=== PATIENT | male | born 1940 | race Caucasian/White ===

== ENCOUNTER → 2024-03-17 08:40 | Outpatient (REF) | payer OTHER, SELFPAY | LOC: HWRAD 08:40 | PROVIDERS: ATTENDING PHYSICIAN Internal Medicine Hematology & Oncology; FAMILY PHYSICIAN Family Medicine | DX: C61 Malignant neoplasm of prostate (principal); C79.51 Secondary malignant neoplasm of bone; Z13.29 Encounter for screening for other suspected endocrine disorder | CPT/HCPCS: 76536 ==

== ENCOUNTER 2024-04-17 10:46 | Emergency (ER) | payer OTHER, SELFPAY ==
[2024-04-17] VITALS (19 sets, daily range): BP systolic 110–174; BP diastolic 58–143; BMI 34.3
[2024-04-17] MEDS: NSS 500 IV (12:40)
[2024-04-17 12:51] LABS: % Basophils 0.4 % (0-2); % Eosinophils 0.3 % (0-6); % Immature Granulocytes 0.9 % (0-0.5); % Lymphocytes 10.6 % (20.5-51.1); % Monocytes 4.9 % (1.7-9.3); % Neutrophils 82.9 % (42.2-75.2); Absolute Immature Granulocytes 0.1 10^3/uL (0-0.05); Absolute Lymphocytes 1.1 10^3/uL (1.2-3.4); Absolute Monocytes 0.5 10^3/uL (0.1-0.6); Absolute Neutrophils 8.5 10^3/uL (1.4-6.5); Hematocrit 41.2 % (39.0-52.0); Hemoglobin 14.1 g/dL (13.0-18.0); Mean Corp Hgb Conc. 34.2 g/dL (33.0-37.0); Mean Corpuscular Hgb 28.1 pg (27.0-31.0); Mean Corpuscular Volume 82.1 fL (80.0-94.0); Mean Platelet Volume 10.6 fL (7.4-10.4); Nucleated Red Blood Cells % 0 % (-); Platelet Count 214 10^3/uL (130-400); Red Blood Cell Count 5.02 10^6/uL (4.70-6.10); Red Cell Dist. Width 13.9 % (11.5-14.5); White Blood Cell Count 10.3 10^3/uL (4.8-10.8)
[2024-04-17 13:06] LABS: ALT (SGPT) 19 U/L (0-50); AST (SGOT) 17 U/L (17-59); Albumin 4.2 g/dl (3.5-5.0); Alkaline Phosphatase 51 U/L (38-126); Blood Urea Nitrogen 20 mg/dl (9-20); Calcium 10.3 mg/dl (8.4-10.2); Carbon Dioxide 21 mmol/L (22-30); Chloride 104 mmol/L (98-107); Estimated Creatinine Clearance 74 ml/min; Glucose 141 mg/dl (70-99); Potassium 4.3 mmol/L (3.5-5.1); Sodium 140 mmol/L (135-145); Total Protein 7.2 g/dl (6.3-8.2); eGFR > 60.00
--- NOTE | 2024-04-17 13:29 | ED.GENMED ---
History of Present Illness
General
Chief Complaint: Blood Pressure Problem
Source: patient, records and family
Exam Limitations: none
Time Seen by Provider: 04/17/24 12:23
Nursing documentation reviewed up to this point in time: agreed with
History of Present Illness
History of Present Illness:
Patient is 83-year-old male who awoke today and felt terrible. Patient took his blood pressure seem to be very elevated along with his heart rate. Patient is unsure if the blood pressure was accurate as his machine needed new batteries. However
the patient did not feel well. Patient denies fever or chills, nasal congestion or sore throat. Patient denies any recent illnesses or injuries. Patient did feel some palpitations but denied any chest pain. Patient denies any GI or symptoms.
Patient has noted some swelling of his lower extremities. Patient did not feel short of breath.
Past History
Past History
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
ED Past Surgical History: Orthopedic (Right knee surgery, ), Urological (TURP) and Other (Cataracts)
Social History
Tobacco: Non-smoker
Alcohol: Occasional
Drug: None
Personal:
Living: alone
Employment: Retired
Family History
Family History: Other (Noncontributory)
Review of Systems
Review of Systems
All Other Systems: ROS reviewed and negative except as documented in HPI and ROS
Constitutional: Reports fatigue; Denies fever or chills
EENT: Reports no symptoms
Respiratory: Reports no symptoms
Cardiac: Reports no symptoms
ABD/GI: Reports no symptoms
: Reports no symptoms
Musculoskeletal: Reports no symptoms
Skin: Reports no symptoms
Neurological: Reports no symptoms
Hematologic/Lymphatic: Reports no symptoms
Psychiatric: Reports no symptoms
Phy Exam
Physical Exam
Physical Exam:
Physical Exam
General: mild distress, alert and appropriate, obese, well hydrated
HENT: Normocephalic, supple with no lymphadenopathy, no thyromegaly
Eyes: Clear sclera, conjuctiva without injection
Heart: irregular irregular rhythm and tachycardic rate. No S3, S4. No murmur. No NVD
Lungs: No respiratory distress, no stridor, lung sounds clear and equal bilaterally, chest wall symmetrical and nontender
Abdomen: Soft, nontender, no organomegaly, BS good
Neuro: Alert and oriented x 3, CN II - XII intact, no motor focality
Skin: no rash. Pale
Psychiatric: well kept. interactive and cooperative
Extremities: No cyanosis, tenderness, +1 pitting pretibial and pedal edema bilaterally
Course
Orders/Labs/Results
Orders:
Orders
04/17/24 11:10
Electrocardiogram (*1) Urgent
Reason for Study: Other
Other Reason for Exam: lightheaded
EKG- Treatment ONCE
04/17/24 12:25
0.9% Sodium Chloride 500 ml [Nss] 500 ml IV BOLUS
04/17/24 12:41
Complete Blood Count/With Diff Urgent
Comprehensive Metabolic Panel Urgent
04/17/24 13:31
Diltiazem HCl [Cardizem] 25 mg IV NOW STA
Furosemide [Lasix] 60 mg IV NOW STA
04/17/24 15:51
Propofol [Diprivan] 20 ml .ROUTE .STK-MED
04/17/24 16:03
Electrocardiogram (*1) Urgent
Reason for Study: Atrial Fibrillation
EKG- Treatment ONCE
Abnormal Lab Results
04/17/24
12:41
MPV 10.6 H fL
(7.4-10.4)
Abs Immat Gran (auto) 0.1 H 10^3/uL
(0-0.05)
Absolute Neuts (auto) 8.5 H 10^3/uL
(1.4-6.5)
Absolute Lymphs (auto) 1.1 L 10^3/uL
(1.2-3.4)
Immature Gran % 0.9 H %
(0-0.5)
Neutrophils % 82.9 H %
(42.2-75.2)
Lymphocytes % 10.6 L %
(20.5-51.1)
Carbon Dioxide 21 L mmol/L
(22-30)
Glucose 141 H mg/dl
(70-99)
Calcium 10.3 H mg/dl
(8.4-10.2)
04/17/24 12:41
04/17/24 12:41
Vital Signs
Initial and Last Documented VS:
Initial Vital Signs
Temp Pulse BP Pulse Ox
97.7 F 60 132/89 97
04/17/24 11:03 04/17/24 11:03 04/17/24 11:03 04/17/24 11:03
Last Documented Vital Signs
Temp Pulse Resp BP Pulse Ox
98.0 F 81 24 119/74 97
04/17/24 11:05 04/17/24 16:35 04/17/24 16:35 04/17/24 16:35 04/17/24 16:35
Procedures
Cardioversion
Indication:: Afib
Performed by:: linkenheimer
Synchronized?: Yes
Energy Used: 150 joules
Number of attempts: 1
Successful?: Yes
Complications: none
ASA Risk Score: Class II
Any reaction or bad outcome to prior sedation/anesthesia?: No history of a reaction
Sedation level to be attained: deep
Chart and allergies reviewed: Yes
Patient reassessed prior to sedation: Yes
Time out completed at (validating right patient & procedure): 16:00
History of difficult intubation: No
Airway free of obstruction: Yes
Patient has a gag reflex: Yes
Patient is able to open mouth: Yes
Patient has no dentures: Yes
Patient has no loose teeth: Yes
Medication administered by Provider during Moderate Sedation: IV Propofol (mg)
Total dose administered: 60
Time drug administered: 16:00
Start Time: 16:00
Stop Time: 16:12
*Radiology
Radiology exam reviewed: other (na)
*Pulse Oximetry
Patient hypoxic: no
*EKG
Interpreted by ED Provider?: Yes
EKG Intrepretation Date: 04/17/24
EKG Intrepretation Time: 15:31
Interpretation: abnormal
Comparison EKG: changes noted
Heart Rate: 128
Rate: tachycardiac
Rhythm: a-fib
[place]: left axis deviation
Interval: normal QT interval
QRS Pattern: poor R-wave progression and left vent hypertrophy
Ischemia: non-specific ST changes
*[employer] Interpretation
Rate: tachycardiac
Interpretation: abnormal
Heart Rate: 125
Rhythm: a-fib
*Critical Care Note
Total Time (30-74mins, 75-104mins- exclusive of procedures): 35 minutes
Update Note
Update Note:
Repeat Carter EKG shows sinus rhythm with first-degree heart block and PACs. Otherwise same as usual. 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 And went to see a different group than he has seen in the past.
ED Attending Note
-
Portions of this chart may have been created with voice recognition software.� Occasional wrong word or��sound alike� substitutions may have occurred due to the inherent limitations of voice recognition software.
Discharge Plan
Departure
Patient Disposition: Home (Routine Discharge)
Date of Disposition: 04/17/24
Time of Disposition: 16:42
Patient with high blood pressure during this ER visit?: No
Condition: Good
Covid-19: Not Applicable
Discharge Problem:
Atrial fibrillation with rapid ventricular response, Encounter for cardioversion procedure
Instructions: Atrial Fibrillation (DC), Cardioversion (DC), MODERATE SEDATION ADULT
Prescriptions:
No Action
tamsulosin [Flomax] 0.4 MG capsule
0.4 mg PO BID
Eliquis 5 MG tablet
5 mg PO BID Qty: 70 0RF
prednisone 5 mg Tablet
5 mg PO DAILY
sertraline 50 mg Tablet
50 mg PO HS
abiraterone 500 mg Tablet
1,000 mg PO DAILY
Rx Instructions:
must be taken on empty stomach, at least 1 hr before or 2 hrs after a meal/food
calcium carbonate-vitamin D3 600 mg-5 mcg (200 unit) Tablet
1 tab PO BID
valsartan 80 mg tablet
80 mg PO DAILY Qty: 30 0RF
Referrals:
Masoud Hancock MD [Family Provider] - Follow up in 5-7 days
Dmitry Walters MD [Active] - Call in 1-3 days for appt
Activity Restrictions/Additional Instructions:
Continue present medications and therapy.
Interventions
Interventions:
*Risk Screen - Suicide Last Done: 04/17/24 11:05
*General Assessment Last Done: 04/17/24 15:05
*Neglect/Abuse Screening Last Done: 04/17/24 11:05
*ED COVID-19 Vaccine History Last Done: 04/17/24 11:09
ED- Cardiac Assessment Last Done: 04/17/24 13:58
ED- Neurological Assessment Last Done: 04/17/24 14:00
ED- Pulmonary Assessment Last Done: 04/17/24 14:00
Discharge Date and Time
Print Language: ICELANDIC
[2024-04-17] MEDS: CARDIZEM 25 MG IV (13:49)
[2024-04-17] MEDS: LASIX 60 MG IV (13:52)
== END 2024-04-17 17:16 | disposition home or self-care (01) ==
LOC: EMR 10:46
PROVIDERS: EMERGENCY PHYSICIAN Emergency Medicine; FAMILY PHYSICIAN Family Medicine
DX: I48.91 Unspecified atrial fibrillation (principal); I10 Essential (primary) hypertension; K21.9 Gastro-esophageal reflux disease without esophagitis; Z86.73 Personal history of transient ischemic attack (TIA), and cerebral infarction without residual deficits; Z85.51 Personal history of malignant neoplasm of bladder; Z90.79 Acquired absence of other genital organ(s)
CPT/HCPCS: 92960; 99152; 96374; 96375; 99291; 80053; 85025; 93005

== ENCOUNTER → 2024-04-26 08:18 | Outpatient (REF) | payer OTHER, SELFPAY ==
[2024-04-26 08:39] VITALS: BP 186/83; BP_SYST 60
== END ==
LOC: RADI 08:18
PROVIDERS: ATTENDING PHYSICIAN Nurse Practitioner Family
DX: E04.2 Nontoxic multinodular goiter (principal)
CPT/HCPCS: 88173; 10005; 10006

== ENCOUNTER 2024-05-09 12:58 | Inpatient (IN) | payer OTHER, SELFPAY ==
[2024-05-09] VITALS (31 sets, daily range): BP systolic 120–181; BP diastolic 58–119; BMI 35.1
[2024-05-09 08:55] LABS: % Basophils 0.4 % (0-2); % Eosinophils 0.6 % (0-6); % Immature Granulocytes 1.1 % (0-0.5); % Lymphocytes 15.6 % (20.5-51.1); % Monocytes 7.9 % (1.7-9.3); % Neutrophils 74.4 % (42.2-75.2); Absolute Eosinophils 0.1 10^3/uL (0-0.7); Absolute Immature Granulocytes 0.1 10^3/uL (0-0.05); Absolute Lymphocytes 1.5 10^3/uL (1.2-3.4); Absolute Monocytes 0.8 10^3/uL (0.1-0.6); Absolute Neutrophils 7.1 10^3/uL (1.4-6.5); Hematocrit 41.1 % (39.0-52.0); Hemoglobin 13.3 g/dL (13.0-18.0); Mean Corp Hgb Conc. 32.4 g/dL (33.0-37.0); Mean Corpuscular Hgb 28.7 pg (27.0-31.0); Mean Corpuscular Volume 88.8 fL (80.0-94.0); Mean Platelet Volume 10.6 fL (7.4-10.4); Nucleated Red Blood Cells % 0 % (-); Platelet Count 166 10^3/uL (130-400); Red Blood Cell Count 4.63 10^6/uL (4.70-6.10); Red Cell Dist. Width 13.9 % (11.5-14.5); White Blood Cell Count 9.5 10^3/uL (4.8-10.8)
[2024-05-09 09:06] LABS: INR 1.34; PT 16.8 Sec (11.4-14.6)
[2024-05-09 09:07] LABS: APTT 28.9 Sec (23.4-35.0)
[2024-05-09 09:22] LABS: Troponin I 0.024 ng/ml
--- NOTE | 2024-05-09 09:28 | ED.GENMED ---
History of Present Illness
<Iliana Mccoy MD, Resident - Last Filed: 05/09/24 13:04>
General
Chief Complaint: Chest Pain
Source: patient
Time Seen by Provider: 05/09/24 08:45
History of Present Illness
History of Present Illness:
This is a 83-year-old male patient with PMH of atrial fibrillation on Eliquis, Hx of bladder cancer and prostate cancer who presents to the ED with concerns of chest pain. He states that last night he had an episode of substernal chest pain with a
heavy pressure-like feeling, nonradiating and rated 5 out of 10. This was associated with palpitations. He denied any headaches, vision changes, nausea or vomiting. He stated that he tried to lie down to help relieve his chest pain but when it
did not resolve this prompted him to arrive to the ED. EMS had given nitroglycerin and Cardizem and upon arrival to the ED, his heart rate was in the 100s. He states that he felt much better regarding his chest pain upon taking medication.
Past History
<Iliana Mccoy MD, Resident - Last Filed: 05/09/24 13:04>
Past History
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
ED Past Surgical History: Orthopedic (Right knee surgery, ), Urological (TURP) and Other (Cataracts)
Social History
Tobacco: Non-smoker
Alcohol: Occasional
Drug: None
Personal:
Living: alone
Employment: Retired
Family History
Family History: Other (Noncontributory)
Review of Systems
<Iliana Mccoy MD, Resident - Last Filed: 05/09/24 13:04>
Review of Systems
Constitutional: Denies fever or chills
Respiratory: Denies cough
Cardiac: Reports chest pain and palpitations
ABD/GI: Denies abdominal pain
Phy Exam
<Iliana Mccoy MD, Resident - Last Filed: 05/09/24 13:04>
General Physical Exam
General Presentation: well appearing and no apparent distress
Cardiovascular Exam
Cardiovascular Exam: tachycardia
Heart Sounds: normal
Pulmonary Exam
Pulmonary Exam: lungs clear
Gastrointestinal Exam
Gastrointestinal Exam: non tender, soft and non distended
Neurological Exam
Neurological Exam: oriented x3
Musculoskeletal Exam
Musculoskeletal Exam: no edema
Skin Exam
Skin Exam: warm/dry
Scores
<Iliana Mccoy MD, Resident - Last Filed: 05/09/24 13:04>
Heart Score for Chest Pain Patients
STEMI patient?: No
History: Slightly or Non-Suspicious
ECG: Normal
Age: >/= 65 years
Risk Factors: >/= 3 Risk Factors or History of CAD
Troponin: </= Normal Limit
Heart Score for Chest Pain Patients: 4
Heart Score Risk: 20.3% MACE over next 6 weeks
<Ortega España DO - Last Filed: 05/09/24 13:21>
Heart Score for Chest Pain Patients
Heart Score for Chest Pain Patients: 4
Heart Score Risk: 20.3% MACE over next 6 weeks
Course
<Iliana Mccoy MD, Resident - Last Filed: 05/09/24 13:04>
Orders/Labs/Results
Orders:
Orders
05/09/24 08:46
Electrocardiogram (*1) Urgent
Reason for Study: Chest Pain
EKG- Treatment ONCE
05/09/24 08:49
Complete Blood Count/With Diff Urgent
PT/INR [Prothrombin Time] Urgent
PTT Urgent
Troponin I Urgent
05/09/24 09:08
Basic Metabolic Panel Urgent
05/09/24 10:01
Diltiazem HCl [Cardizem] 20 mg IV NOW STA
05/09/24 10:15
Diltiazem 125 mg/125 ml Nss [Cardizem] 125 mg in 125 ml IV PER PROTOCOL
Initial dose in mg/hr, then titrate:: 5
Titrate to keep:: Heart rate 80-100 bpm
Titrate by mg/hr:: 5 mg/hr
Frequency of titrations (minutes):: 15
Maximum dose in mg/hr:: 15
05/09/24 10:16
Electrocardiogram (*1) Urgent
Reason for Study: Chest Pain
EKG- Treatment ONCE
Nitroglycerin Sublingual [Nitrostat (Sublingual)] 0.4 mg SL NOW STA
05/09/24 10:30
Potassium Urgent
Troponin I Urgent
05/09/24 10:41
Nitroglycerin Ointment [Nitro-Bid] 1 inch TOPICAL NOW STA
05/09/24 10:56
Aspirin Chewable [Low Strength Aspirin] 324 mg PO NOW STA
05/09/24 10:59
CARDIOLOGY CONSULT Urgent
Consulting Provider: Shashi Chambers
Was physician already notified: Yes
05/09/24 12:29
Admit/Transfer Patient As Directed
Co-Sign Provider:
Level of Care: Inpatient admission
Assign to:: Telemetry
Physician / Group: Rita
Diagnosis: Afib with RVR
Reason for Telemetry: Arrhythmia
Date to Stop Telemetry: 05/12/24
Time to Stop Telemetry: 11:00
Reason for Hospitalization: Cardizem infusion
Expected length of stay greater than two midnights?: Yes
ELOS- Estimated Length of Stay in days: 3
I certify the patient meets the requirements for IP care: Yes
Diltiazem 125 mg/125 ml Nss [Cardizem] 125 mg in 125 ml IV PER PROTOCOL
Continuous dose without titration in mg/hr:: 5
Additional Titration Instructions:: Do not titrate. Rate change by provider order only.
PRN Pain Medication Management As Directed
May give lesser potent ordered pain med per pt: Yes
preference::
Protocol:: Medication orders for pain may be administered in a
manner that supports deferring to patient preference
when the pt is:
- Requesting an ordered lesser potent pain medication.
Least to most potent pain medications are defined
as: acetaminophen < NSAID < tramadol < opioids
(morphine, oxycodone, hydromorphone).
- Requesting a lesser dose of the same medication IF
ORDERED.
- Requesting a less intrusive route of administration
if both routes are prescribed by the provider (PO <
IV).
05/09/24 12:32
Code Status As Directed
Resuscitation Status: Full Code
05/09/24 12:33
Add On- LAB Urgent
Tests Added?: magnesium, TSH w/Reflex
05/09/24 12:37
Apixaban [Eliquis] 5 mg PO NOW STA
Valsartan [Diovan] 160 mg PO NOW STA
05/09/24 16:30
Troponin I Routine
05/12/24 11:00
DC Protocol for Telemetry ONCE
Abnormal Lab Results
05/09/24 05/09/24
08:49 09:08
RBC 4.63 L 10^6/uL
(4.70-6.10)
MCHC 32.4 L g/dL
(33.0-37.0)
MPV 10.6 H fL
(7.4-10.4)
Abs Immat Gran (auto) 0.1 H 10^3/uL
(0-0.05)
Absolute Neuts (auto) 7.1 H 10^3/uL
(1.4-6.5)
Absolute Monos (auto) 0.8 H 10^3/uL
(0.1-0.6)
Immature Gran % 1.1 H %
(0-0.5)
Lymphocytes % 15.6 L %
(20.5-51.1)
PT 16.8 H Sec
(11.4-14.6)
Chloride 108 H mmol/L
(98-107)
BUN 26 H mg/dl
(9-20)
Glucose 121 H mg/dl
(70-99)
05/09/24 08:49
05/09/24 10:30
Vital Signs
Initial and Last Documented VS:
Initial Vital Signs
Temp Pulse Resp BP Pulse Ox
98.6 F 106 16 160/92 97
05/09/24 08:42 05/09/24 08:42 05/09/24 08:42 05/09/24 08:42 05/09/24 08:42
Last Documented Vital Signs
Temp Pulse Resp BP Pulse Ox
98.6 F 81 17 155/102 97
05/09/24 08:42 05/09/24 12:59 05/09/24 12:40 05/09/24 12:59 05/09/24 12:40
Chenglt;Ortega España, DO - Last Filed: 05/09/24 13:21>
Orders/Labs/Results
Orders:
Orders
05/09/24 08:46
Electrocardiogram (*1) Urgent
Reason for Study: Chest Pain
EKG- Treatment ONCE
05/09/24 08:49
Complete Blood Count/With Diff Urgent
PT/INR [Prothrombin Time] Urgent
PTT Urgent
Troponin I Urgent
05/09/24 09:08
Basic Metabolic Panel Urgent
05/09/24 10:01
Diltiazem HCl [Cardizem] 20 mg IV NOW STA
05/09/24 10:15
Diltiazem 125 mg/125 ml Nss [Cardizem] 125 mg in 125 ml IV PER PROTOCOL
Initial dose in mg/hr, then titrate:: 5
Titrate to keep:: Heart rate 80-100 bpm
Titrate by mg/hr:: 5 mg/hr
Frequency of titrations (minutes):: 15
Maximum dose in mg/hr:: 15
05/09/24 10:16
Electrocardiogram (*1) Urgent
Reason for Study: Chest Pain
EKG- Treatment ONCE
Nitroglycerin Sublingual [Nitrostat (Sublingual)] 0.4 mg SL NOW STA
05/09/24 10:30
Potassium Urgent
Troponin I Urgent
05/09/24 10:41
Nitroglycerin Ointment [Nitro-Bid] 1 inch TOPICAL NOW STA
05/09/24 10:56
Aspirin Chewable [Low Strength Aspirin] 324 mg PO NOW STA
05/09/24 10:59
CARDIOLOGY CONSULT Urgent
Consulting Provider: Shashi Chambers
Was physician already notified: Yes
05/09/24 12:29
Admit/Transfer Patient As Directed
Co-Sign Provider:
Level of Care: Inpatient admission
Assign to:: Telemetry
Physician / Group: Rita
Diagnosis: Afib with RVR
Reason for Telemetry: Arrhythmia
Date to Stop Telemetry: 05/12/24
Time to Stop Telemetry: 11:00
Reason for Hospitalization: Cardizem infusion
Expected length of stay greater than two midnights?: Yes
ELOS- Estimated Length of Stay in days: 3
I certify the patient meets the requirements for IP care: Yes
Diltiazem 125 mg/125 ml Nss [Cardizem] 125 mg in 125 ml IV PER PROTOCOL
Continuous dose without titration in mg/hr:: 5
Additional Titration Instructions:: Do not titrate. Rate change by provider order only.
PRN Pain Medication Management As Directed
May give lesser potent ordered pain med per pt: Yes
preference::
Protocol:: Medication orders for pain may be administered in a
manner that supports deferring to patient preference
when the pt is:
- Requesting an ordered lesser potent pain medication.
Least to most potent pain medications are defined
as: acetaminophen < NSAID < tramadol < opioids
(morphine, oxycodone, hydromorphone).
- Requesting a lesser dose of the same medication IF
ORDERED.
- Requesting a less intrusive route of administration
if both routes are prescribed by the provider (PO <
IV).
05/09/24 12:32
Code Status As Directed
Resuscitation Status: Full Code
05/09/24 12:33
Add On- LAB Urgent
Tests Added?: magnesium, TSH w/Reflex
05/09/24 12:37
Apixaban [Eliquis] 5 mg PO NOW STA
Valsartan [Diovan] 160 mg PO NOW STA
05/09/24 16:30
Troponin I Routine
05/12/24 11:00
DC Protocol for Telemetry ONCE
Abnormal Lab Results
05/09/24 05/09/24
08:49 09:08
RBC 4.63 L 10^6/uL
(4.70-6.10)
MCHC 32.4 L g/dL
(33.0-37.0)
MPV 10.6 H fL
(7.4-10.4)
Abs Immat Gran (auto) 0.1 H 10^3/uL
(0-0.05)
Absolute Neuts (auto) 7.1 H 10^3/uL
(1.4-6.5)
Absolute Monos (auto) 0.8 H 10^3/uL
(0.1-0.6)
Immature Gran % 1.1 H %
(0-0.5)
Lymphocytes % 15.6 L %
(20.5-51.1)
PT 16.8 H Sec
(11.4-14.6)
Chloride 108 H mmol/L
(98-107)
BUN 26 H mg/dl
(9-20)
Glucose 121 H mg/dl
(70-99)
05/09/24 08:49
05/09/24 10:30
Vital Signs
Initial and Last Documented VS:
Initial Vital Signs
Temp Pulse Resp BP Pulse Ox
98.6 F 106 16 160/92 97
05/09/24 08:42 05/09/24 08:42 05/09/24 08:42 05/09/24 08:42 05/09/24 08:42
Last Documented Vital Signs
Temp Pulse Resp BP Pulse Ox
98.6 F 81 17 155/102 97
05/09/24 08:42 05/09/24 12:59 05/09/24 12:40 05/09/24 12:59 05/09/24 12:40
<Iliana Mccoy MD, Resident - Last Filed: 05/09/24 13:04>
MDM/Problems Addressed
Differential Diagnosis Includes:
Uncontrolled atrial fibrillation, acute myocardial infarction
<Iliana Mccoy MD, Resident - Last Filed: 05/09/24 13:04>
*Critical Care Note
Total Time (30-74mins, 75-104mins- exclusive of procedures): Not Applicable
<Iliana Mccoy MD, Resident - Last Filed: 05/09/24 13:04>
Update Note
Update Note:
CBC/CMP unremarkable. EKG showing atrial fibrillation. Troponin 0.024, repeat pending. Patient's heart rate started to slowly increase, started IV diltiazem and gave nitroglycerin along with ASA 324mg. Cardiology consulted and patient admitted
for Afib with RVR.
ED Attending Note
<Iliana Mccoy MD, Resident - Last Filed: 05/09/24 13:04>
-
Portions of this chart may have been created with voice recognition software.� Occasional wrong word or��sound alike� substitutions may have occurred due to the inherent limitations of voice recognition software.
<Ortega España DO - Last Filed: 05/09/24 13:21>
ED Attending Note
Patient seen and examined by attending physician: Yes
I performed a history and physical exam of patient and discussed management with resident, I reviewed resident's note and agree with documented findings and plan of care.: Yes
ED Attending Note:
I agree with Dr. Mccoy's note.
Patient presents via ambulance for rapid heart rate and chest pressure. Patient has history of paroxysmal atrial fibrillation. He was recently here in the emergency room and underwent a cardioversion. He did not maintain sinus rhythm for very
long. Patient again having substernal pressure this morning while he is in bed. Worse with exertion. On arrival patient is in atrial fibrillation with rapid ventricular response. His chest discomfort had improved after stopping all nitro given
by paramedics as well as 10 mg of Cardizem given by paramedics
General: Awake, Alert, Oriented X3. Appears stated age, no distress
Vitals: Tachycardic
Head: Atraumatic
Eyes: Pupils equal, EOMI
Throat: Airway intact, no exudates
Neck: Trachea midline
Lungs: Clear and equal b/l
Heart: Tachycardic, irregular rate, no murmurs
Abd: Soft, Nontender, No pulsatile mass
Neuro: Nonfocal
Skin: Warm, dry, no rash
Extremities: pulses equal b/l, no edema
Patient presents with chest pain and A-fib with rapid ventricular response. My initial suspicion was his chest discomfort was rate related. It his discomfort did improve with lower heart rate but did not go away completely. While here in the
emergency chest discomfort increased in intensity. At this point his heart rate had drifted back up to the 1 teens. Further bolus of Cardizem was given and a Cardizem drip initiated. Heart rate improved but he stated his chest pressure did not
change. Single nitro given with improvement of his chest pain. Nitropaste ordered. Patient will require hospitalization as I suspect his symptoms are not related exclusively to A-fib but he may also have coronary artery disease with unstable
angina. Patient already takes Eliquis and so heparin is not indicated. Fortunately his troponin has been flat.
Discharge Plan
Interventions
Interventions:
*Risk Screen - Suicide Last Done: 05/09/24 08:45
*General Assessment Last Done: 05/09/24 08:45
*Neglect/Abuse Screening Last Done: 05/09/24 08:45
*ED COVID-19 Vaccine History Last Done: 05/09/24 08:45
ED- Cardiac Assessment Last Done: 05/09/24 08:45
[2024-05-09 09:44] LABS: Blood Urea Nitrogen 26 mg/dl (9-20); Calcium 9.3 mg/dl (8.4-10.2); Carbon Dioxide 22 mmol/L (22-30); Chloride 108 mmol/L (98-107); Estimated Creatinine Clearance 74 ml/min; Glucose 121 mg/dl (70-99); Sodium 140 mmol/L (135-145); eGFR > 60.00
[2024-05-09] MEDS: CARDIZEM 20 MG IV (10:07)
[2024-05-09] MEDS: CARDIZEM 125 IV ×2 (10:08→12:40)
[2024-05-09] MEDS: NITROSTAT (SUBLINGUAL) 0.4 MG SL (10:20)
[2024-05-09] MEDS: NITRO-BID 1 INCH TOPICAL (10:46)
[2024-05-09 10:49] LABS: Potassium 3.9 mmol/L (3.5-5.1)
[2024-05-09] MEDS: LOW STRENGTH ASPIRIN 324 MG PO (11:01)
[2024-05-09 11:04] LABS: Troponin I 0.025 ng/ml
--- NOTE | 2024-05-09 12:28 | HPS.HSE ---
Family Physician
-
Family Physician: Masoud Hancock
Chief Complaint
-
Chest Pain
History of Present Illness
Patient is an 83 y/o male past medical history of paroxysmal atrial fibrillation, hypertension, and metastatic prostate cancer who presents with chest pain. Patient reports he initially awoke at 4AM this morning with chest pressure. He reports he
went back to sleep, but upon wakening at 7AM chest pain was worse. He describes the pain as pressure across the middle and left part of his chest. He notes when takes a deep the pressure increasing extending up to the jaw. He called EMS who found
his heart rate to be elevated in thr 150s. He was given nitroglycerin and brought the ED for evaluation. Patient reports was seen in the ED about 3 weeks for atrial fibrillation at which time he was cardioverted back in to a normal rhythm. Upon
my evaluation heart rate improved to the 80-90s on a Cardizem drip, but patient remains in atrial fibrillation.
Medical History
Past Medical History
Past Medical History: Reports Other
Additional Past Medical History:
Paroxysmal Atrial Fibrillation
Essential Hypertension
Metastatic Bladder/Prostate Cancer with Bony Mets
Depression
Pulmonary Embolism
Past Surgical History: Reports Other
Additional Past Surgical History:
Transurethral Resection of Bladder Tumor
Right Knee Surgery
Social History
Tobacco: Non-smoker
Alcohol: Occasional
Family History
Family History: Not pertinent
Allergies / Home Medications
Allergies reflects when Allergies were last updated in [facility].
Home Medications with original date entered in [facility]
Allergy/Medication List:
Allergies
Allergy/AdvReac Type Severity Reaction Status Date / Time
No Known Drug Allergies Allergy NA Verified 01/31/23 18:58
poison altaf Allergy Rash Uncoded 06/08/22 15:39
Home Medications
tamsulosin 0.4 mg capsule (Flomax) 0.4 mg PO BID Urinary issue 03/29/14
apixaban 5 mg tablet (Eliquis) 5 mg PO BID #70 tabs 08/26/20
abiraterone 500 mg tablet 1,000 mg PO DAILY Cancer 01/31/23
prednisone 5 mg tablet 5 mg PO DAILY Anti-Inflammatory 01/31/23
sertraline 50 mg tablet 50 mg PO HS Depression 01/31/23
calcium 600 mg (as carbonate)-vitamin D3 10 mcg (400 unit) tablet (Calcium 600 + D(3)) 1 tab PO HS 05/09/24
valsartan 160 mg tablet 160 mg PO BID 05/09/24
Review of Systems
-
A 12 point ROS was completed and negative except as noted: Yes
Constitutional: Denies Fever or Chills
Respiratory: Denies Cough or Trouble Breathing
Cardiac: Reports See HPI
Physical Exam
Vital Signs
Vital Signs
Temp Pulse Resp BP Pulse Ox
98.6 F 91 19 164/93 97
05/09/24 08:42 05/09/24 12:10 05/09/24 12:10 05/09/24 12:10 05/09/24 12:10
Physical Exam
General: Comfortable and Conversant
HEENT: Anicteric and Moist mucous membranes
Respiratory: Clear and Non Labored Respirations
Cardiac: S1/S2, Irregular Rhythm and Murmur (2/6 Systolic Murmur); No Tachycardia
GI: Soft and Non Tender
Rectal: Deferred by Provider
Musculoskeletal: No Clubbing, No Cyanosis and No Edema
Skin: Warm and Dry
Neuro: Awake, Alert, Oriented and Nonfocal/grossly intact
Psych: Calm
Laboratory Results
-
05/09/24 08:49
05/09/24 10:30
Laboratory Results
PT 16.8 Sec (11.4-14.6) H 05/09/24 08:49
INR 1.34 05/09/24 08:49
APTT 28.9 Sec (23.4-35.0) 05/09/24 08:49
Total Bilirubin Cancelled 05/09/24 09:08
AST Cancelled 05/09/24 09:08
ALT Cancelled 05/09/24 09:08
Alkaline Phosphatase Cancelled 05/09/24 09:08
Troponin I 0.025 ng/ml 05/09/24 10:30
Data Reviewed
-
Medical Tests (Nuc Med, Echo, EKG etc): Report Reviewed by me (ECG)
Lab Data: Labs Reviewed by me
Old Records: Reviewed
Impression/Plan
-
Atrial Fibrillation with Rapid Ventricular Response
-Consult Cardiology
-Keep NPO pending cardiology evaluation for possible cardioversion
-Continue Cardizem drip
-Continue Eliquis
Essential Hypertension
-BP running on the high side after missing meds this morning
-Continue valsartan with first dose now
Metastatic Bladder/Prostate Cancer with Bony Mets
-Continue prednisone
-Patient maintained on abiraterone as outpatient
Depression
-Continue sertraline
DVT proph: Eliquis
Code Status: Full Code
--- NOTE | 2024-05-09 12:45 | W.PN.UPDATE ---
Update Note
Progress Note Update
This is an addendum to the H&P written by Amaya Shaikh on 05/09/2024.
83-year-old male past medical history of paroxysmal atrial fibrillation on Eliquis, prostate cancer on hormonal therapy, hypertension, anxiety/depression, presenting with chest pressure since last night. Denies shortness of breath, dizziness or
palpitations.
He was found to be in atrial fibrillation with RVR with rate up to 150. He was started on Cardizem drip and rate is currently controlled.
He was recently in the emergency room on 04/17 for A-fib with RVR and was cardioverted at that time. He has not followed up with Dr. Walters yet in the office.
Continue Cardizem drip. Cardiology consulted.
[2024-05-09] MEDS: DIOVAN 160 MG PO ×2 (12:59→19:33)
[2024-05-09] MEDS: ELIQUIS 5 MG PO (12:59)
[2024-05-09 14:12] LABS: TSH Reflex To Free T4 4.46 uIU/ml (0.47-4.68)
--- NOTE | 2024-05-09 15:09 | CON.CAR ---
Addendum entered and electronically signed by Rik Bey MD 05/09/24 16:56:
I saw and examined the patient.
The Nail Kegger's note was reviewed and I agree with the note.
Comment: Briefly, 83-year-old man past medical history of paroxysmal atrial fibrillation presenting with substernal chest pressure and found to be in atrial fibrillation with rapid ventricular response
Given chest pressure patient was treated with sublingual nitro as well as Nitropaste and his symptoms have resolved concerning for unstable angina
Troponin was detectable but not elevated, would trend to peak
ECG is not overtly ischemic
Continue aspirin and high intensity statin
Start heparin this evening
Discussed with patient and son at bedside possible coronary angiography tomorrow
Underwent recent direct-current cardioversion but back in atrial fibrillation with RVR on admission
Cont diltiazem drip for goal heart rate less than 110 bpm
Tentative plan to start PO amio in anticipation of direct-current cardioversion
On Eliquis as an outpatient, plan to transition to heparin this evening with concern for unstable angina
Rest per Andreea Reich
Addendum entered and electronically signed by Andreea Reich PA-C 05/09/24 15:33:
BPs also elevated. may need to uptitrate OP meds for improved control.
Original Note:
Consultation
Consultation Request
Date/Time Consultation Performed: 05/09/24
Requesting Provider: Resident
Performing Provider: Andreea Reich PA-C for Dr. Bey
Reason for Consultation: CP, afib
Medical History
-
Chief Complaint: CP
History of Present Illness:
Patient is an 83 yo M with PMH possible stroke approximately 8 years ago at which time he reports he was found to have paroxysmal atrial fibrillation and was started on Eliquis. He initially told me he had paroxysmal A-fib since the time he was a
child, which I am not sure is accurate. He has history of hypertension and hypercholesterolemia. Also has history of bladder cancer status post surgical removal and prostate cancer with mets to bone on hormone therapy and chemotherapy, followed by
Dr. Serrato and Dr. Ferreira. He also states he had a biopsy of thyroid nodules approximately 2 weeks ago. He states approximately 3 weeks ago and 04/17/2024, he had an episode of lightheadedness. He came to [facility] emergency room and
his blood pressure was noted to be elevated and he was in atrial fibrillation. He underwent successful cardioversion and was discharged home. He reports since that time he has been doing okay until this morning around 4 AM when he woke up with
chest pain and pressure. He reports he tried to go back to sleep however at 7 AM the pain worsened and he called 911. His pain was not relieved with IV Cardizem/improvement in heart rate control, however did resolve with sublingual nitro and nitro
paste. Initial trop 0.025. Last stress test was Lexiscan 06/2022 with fixed defect, however no evidence of active ischemia. Cardiology consulted for evaluation. He is scheduled to see Dr. Walters in office 05/15/24.
PMH:
Paroxysmal atrial fibrillation
Chronic anticoagulation with Eliquis
ER visit 04/17/2024 for atrial fibrillation, lightheadedness status post successful cardioversion
History of suspected stroke
Hypertension
Hypercholesterolemia
History of bladder cancer status post surgical removal
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
Depression
Past Medical History
Past Medical History: Other (in HPI)
Social History
Tobacco: Non-Smoker
Alcohol: Other (rare)
Employment: Retired
Family History
Family History: Reviewed & Not Pertinent
Allergies / Home Medications
Allergy/AdvReac Type Severity Reaction Status Date / Time
No Known Drug Allergies Allergy NA Verified 01/31/23 18:58
poison altaf Allergy Rash Uncoded 06/08/22 15:39
�Medication �Instructions �Recorded �Confirmed �Type
tamsulosin 0.4 mg capsule (Flomax) 0.4 mg PO BID Urinary issue 03/29/14 05/09/24 History
abiraterone 500 mg tablet 1,000 mg PO DAILY Cancer 01/31/23 05/09/24 History
prednisone 5 mg tablet 5 mg PO DAILY Anti-Inflammatory 01/31/23 05/09/24 History
sertraline 50 mg tablet 50 mg PO HS Depression 01/31/23 05/09/24 History
apixaban 5 mg tablet (Eliquis) 5 mg PO BID Blood Clot 05/09/24 05/09/24 History
Prevention/Tx
calcium 600 mg (as 1 tab PO HS Supplement 05/09/24 05/09/24 History
carbonate)-vitamin D3 10 mcg (400
unit) tablet (Calcium 600 + D(3))
valsartan 160 mg tablet 160 mg PO BID Blood Pressure 05/09/24 05/09/24 History
Review of Systems
-
History Source: Patient and Family
All other systems: Negative unless noted
Physical Exam
Vital Signs
Temp Pulse Resp BP Pulse Ox
98.6 F 97 16 144/86 98
05/09/24 08:42 05/09/24 14:20 05/09/24 14:20 05/09/24 14:20 05/09/24 14:20
Lab Results
05/09/24 08:49
05/09/24 10:30
Troponin I 0.025 ng/ml 05/09/24 10:30
Physical Exam
General: No Apparent Distress and Comfortable
HEENT: Normocephalic, Anicteric and Moist Mucous Membranes
Respiratory: Clear and Non Labored Respirations
Cardiac: S1/S2 and Irregular Rhythm
GI: Soft, Non Tender, Non Distended and Normal Bowel Sounds
Musculoskeletal: No Clubbing, No Cyanosis and Edema (trace of B/L LE)
Skin: Warm and Dry
Neuro: AO x 3
Impression / Plan
-
Primary Coal Shooter: Dr. Bey
Assessment:
Presentation with CP
Detectable troponin
Paroxysmal atrial fibrillation with RVR
Chronic anticoagulation with Eliquis
ER visit 04/17/2024 for atrial fibrillation, lightheadedness status post successful cardioversion
History of suspected stroke
Hypertension
Hypercholesterolemia
History of bladder cancer status post surgical removal
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
Depression
Lexiscan nuclear stress test 07/20/22: Predominantly fixed defect in basal inferolateral, mid inferior lateral and apex segments consistent with infarction with residual ischemia versus STA, EF 52%
Echo 02/01/2023: EF 55 to 60%, trace MR, mild with peak/mean gradients 19/10 mmHg, mild TR, PAP 30 to 35 mmHg
Plan:
-Patient with recent ER visit 04/17/2024 for atrial fibrillation status post successful cardioversion now presents back with chest discomfort which woke him from sleep this morning around 4 AM, which was relieved with sublingual nitro and
Nitropaste. He is also back in atrial fibrillation.
-Initial troponin 0.025. Currently chest pain-free. EKG without acute ischemic changes noted
-Trend troponin to peak
-Echocardiogram. last from 01/2023 with results as above
-Will transition Eliquis to IV heparin. Cardioversion was slightly over 3 weeks ago. Suspect needs cardiac catheterization this admission, tomorrow versus pending interventional cardiology input
-Continue IV Cardizem, uptitrate as needed. Could consider addition of p.o. beta-abilio
-Add aspirin 81 mg daily. hgb 13.3
-Cr stable at 0.9
-Check CVE. not on statin therapy as OP
-May require antiarrhythmic drug for maintenance of sinus rhythm as second episode of A-fib in slightly over 3 weeks.
-thyroid biopsy results reviewed, nondiagnostic. TSH WNL
-d/w patient and son at bedside.
Data Reviewed
-
EKG: Tracing Personally Visualized and interpreted
Medical Tests (Nuc Med, Echo etc): Report Reviewed by me
Labs: Labs Reviewed by me
Old Records: Reviewed
[2024-05-09 17:09] LABS: Magnesium 1.9 mg/dl (1.6-2.3)
[2024-05-09 17:10] LABS: Troponin I 0.034 ng/ml
[2024-05-09] MEDS: LIPITOR PO (17:16)
[2024-05-09] MEDS: FLOMAX 0.4 MG PO (19:33)
[2024-05-09] MEDS: PACERONE 400 MG PO (19:33)
[2024-05-09] MEDS: HEPARIN 25000 UNITS/250 ML IV (19:58)
[2024-05-09] MEDS: ZOLOFT 50 MG PO (21:54)
[2024-05-10] VITALS (7 sets, daily range): BP systolic 113–149; BP diastolic 45–88; BMI 35.1; BMI 33.6
[2024-05-10 03:57] LABS: Hematocrit 36.4 % (39.0-52.0); Hemoglobin 12.3 g/dL (13.0-18.0); Mean Corp Hgb Conc. 33.8 g/dL (33.0-37.0); Mean Corpuscular Hgb 28.7 pg (27.0-31.0); Mean Corpuscular Volume 84.8 fL (80.0-94.0); Mean Platelet Volume 11.3 fL (7.4-10.4); Platelet Count 180 10^3/uL (130-400); Red Blood Cell Count 4.29 10^6/uL (4.70-6.10); Red Cell Dist. Width 13.8 % (11.5-14.5); White Blood Cell Count 6.5 10^3/uL (4.8-10.8)
[2024-05-10 04:03] LABS: APTT 65.1 Sec (23.4-35.0)
[2024-05-10 04:17] LABS: Carbon Dioxide 20 mmol/L (22-30); Estimated Creatinine Clearance 83 ml/min; eGFR > 60.00
[2024-05-10 04:27] LABS: Blood Urea Nitrogen 20 mg/dl (9-20); Calcium 8.5 mg/dl (8.4-10.2); Chloride 109 mmol/L (98-107); Glucose 135 mg/dl (70-99); HDL Cholesterol 39 mg/dl; LDL Cholesterol, Calculated 113 mg/dl; Potassium 3.9 mmol/L (3.5-5.1); Sodium 139 mmol/L (135-145); Total Cholesterol 188 mg/dl (50-199); Triglyceride 183 mg/dl (10-149); Very Low Density Lipoprotein 36 mg/dl (0-30)
[2024-05-10] MEDS: DIOVAN 160 MG PO (07:57)
[2024-05-10] MEDS: FLOMAX 0.4 MG PO ×2 (07:57→20:23)
[2024-05-10] MEDS: DELTASONE 5 MG PO (07:57)
[2024-05-10] MEDS: LOW STRENGTH ASPIRIN 81 MG PO (07:58)
[2024-05-10] MEDS: PACERONE 400 MG PO ×2 (07:58→20:22)
[2024-05-10] MEDS: NON-FORMULARY ITEM 4 MG PO (07:58)
[2024-05-10] MEDS: CARDIZEM 125 IV (09:02)
[2024-05-10 10:42] LABS: APTT 75.1 Sec (23.4-35.0)
[2024-05-10 10:53] LABS: Troponin I 0.031 ng/ml
[2024-05-10] MEDS: TOPROL XL 25 MG PO (11:03)
[2024-05-10 11:49] LABS: Glucose - Point of Care 190 mg/dl (70-99)
--- NOTE | 2024-05-10 12:03 | W.PN.CARDCBS ---
Addendum entered and electronically signed by Kamari Cade MD 05/10/24 15:10:
I saw and examined the patient.
The Press Assistant's note was reviewed and I agree with the note.
Comment:
GEN: No distress, awake, Ox3
HEENT: supple, anicteric, mmm
LUNGS: CTA, no wheezes/rales
CV: Reg with ectopy, S1/S2, 06/26 syst LSB, no gallop
ABD: soft, BS+, NT/ND
EXT: No edema
NEURO: Gross non-focal
SKIN: No rash
Plan:
Patient symptoms are very concerning for unstable angina. Continue to hold Eliquis and continue IV heparin and aspirin. Will proceed with cardiac cath in AM.
He is back in sinus rhythm with premature beats. Continue amiodarone 400 mg p.o. twice daily load. Stop IV Cardizem and start Toprol.
Continue valsartan.
Add statin.
If cardiac cath overall unremarkable for likely discharge tomorrow
Original Note:
Today's Communication / Plan
-
for cath in AM
in SR with ectopy. continue amiodarone 400mg BID and IV cardizem transitioned to toprol
continue asa, IV heparin.
add statin
Impression / Plan
-
Primary Managed Care Liaison: Dr. Bey
Assessment:
Presentation with CP
Detectable troponin
Paroxysmal atrial fibrillation with RVR
Chronic anticoagulation with Eliquis
ER visit 04/17/2024 for atrial fibrillation, lightheadedness status post successful cardioversion
History of suspected stroke
Hypertension
Hypercholesterolemia
History of bladder cancer status post surgical removal
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
Depression
Lexiscan nuclear stress test 07/20/22: Predominantly fixed defect in basal inferolateral, mid inferior lateral and apex segments consistent with infarction with residual ischemia versus STA, EF 52%
Echo 02/01/2023: EF 55 to 60%, trace MR, mild with peak/mean gradients 19/10 mmHg, mild TR, PAP 30 to 35 mmHg
Plan:
-Patient with recent ER visit 04/17/2024 for atrial fibrillation status post successful cardioversion now presents back with chest discomfort which woke him from sleep this morning around 4 AM, which was relieved with sublingual nitro and
Nitropaste. He was also back in atrial fibrillation.
-appears to be in SR with frequent ectopy on review of tele this AM. continue amiodarone 400mg BID, started this admission. QTc stable.
-IV cardizem transitioned to toprol 25mg BID.
-trop peaked at 0.034. no CP overnight. EKG this AM remains without acute ischemic changes noted.
-continue IV heparin. last dose eliquis 05/09 AM. s/p CV 04/17/24
-continue asa, new this admission
-plan for cath in AM. npo after midnight
-LDL 113. will add statin
-Cr stable at 0.8
-thyroid biopsy results reviewed, nondiagnostic. TSH WNL
Progress Note - Managed Care Liaison
Subjective
Date of Service: May 10, 2024
no CP. for cath in AM
Objective
Labs:
05/10/24 03:28
05/10/24 03:28
Labs
Hgb 12.3 g/dL (13.0-18.0) L 05/10/24 03:28
Hct 36.4 % (39.0-52.0) L 05/10/24 03:28
Plt Count 180 10^3/uL (130-400) 05/10/24 03:28
PT 16.8 Sec (11.4-14.6) H 05/09/24 08:49
INR 1.34 05/09/24 08:49
APTT 75.1 Sec (23.4-35.0) H 05/10/24 10:10
Sodium 139 mmol/L (135-145) 05/10/24 03:28
Potassium 3.9 mmol/L (3.5-5.1) 05/10/24 03:28
BUN 20 mg/dl (9-20) 05/10/24 03:28
Creatinine 0.8 mg/dL (0.7-1.3) 05/10/24 03:28
Glucose 135 mg/dl (70-99) H 05/10/24 03:28
Troponins
05/09/24 05/09/24 05/09/24
08:49 10:30 16:39
Troponin I 0.024 0.025 0.034 D
05/10/24
10:10
Troponin I 0.031
Vital Signs and I&O:
Vital Signs
Temp Pulse Resp BP Pulse Ox
98.6 F 64 20 113/45 96
05/10/24 11:00 05/10/24 11:00 05/10/24 11:00 05/10/24 11:00 05/10/24 11:00
Vital Signs
Temp Pulse Resp BP Pulse Ox
98.6 F 64 20 113/45 96
05/10/24 11:00 05/10/24 11:00 05/10/24 11:00 05/10/24 11:00 05/10/24 11:00
Intake & Output
05/08/24 05/09/24 05/10/24 05/11/24
07:59 07:59 07:59 07:59
Intake Total 480 / 480
Balance 480 / 480
--- NOTE | 2024-05-10 12:16 | W.PN.HOSP.TC ---
Addendum entered and electronically signed by Kenrick Sanon MD 05/10/24 16:25:
Stroke alert called later this afternoon. Neurology ordered CT scan which was negative for hemorrhage. Per neurology okay to resume heparin drip. Keep blood pressure in 150s. Spoke with cardiology and added holding parameters on BP meds. While
I was examining the patient symptoms continue to get better. Continue with neurochecks, NIH stroke scale. MRI ordered. Evaluated by speech and okay for regular diet. N.p.o. past midnight in case if go for cardiac cath in am. Cardiology is aware
of the stroke alert. Discussed with daughter at bedside.
I spent a total of 54 minutes with the patient or on the floor. More than 50% of this time involved counseling and coordination of care.
Original Note:
Today's Communication/Plan
-
Monitor vital signs
see plan
Plan for cardiac cath tomorrow
Continue with heparin drip
On Cardizem drip
Echo
Assessment / Plan
Assessment / Plan
General: Comfortable and Conversant
HEENT: Anicteric and Moist mucous membranes
Respiratory: Clear and Non Labored Respirations
Cardiac: S1/S2, Irregular Rhythm and Murmur (2/6 Systolic Murmur); No Tachycardia
GI: Soft and Non Tender
Musculoskeletal:No Edema
Neuro: Awake, Alert, Oriented and Nonfocal/grossly intact
Psych: Calm
Recurrent Atrial Fibrillation with Rapid Ventricular Response
hx of paroxysmal afib s/p CV 3 weeks ago
-Cardiology following. plan for cath 05/11
echo
now on hep gtt; holding eliquis
-Continue Cardizem drip
started amio
npo past midnight
Essential Hypertension
cw home meds
mild forearm hives; per patient he gets it from chemo sometimes
small dose bandryl
Metastatic Bladder/Prostate Cancer with Bony Mets
-Continue prednisone
-Patient maintained on abiraterone as outpatient
Depression
-Continue sertraline
DVT proph: Eliquis
Code Status: Full Code
Anticipated Discharge: 24 - 48 hours
Subjective/Interval History
-
Date of Service: May 10, 2024
denies chest pain
Objective Data
-
Labs:
Laboratory Results
05/10/24 05/10/24 05/10/24
02:18 03:28 10:10
WBC 6.5
Hgb 12.3 L
Hct 36.4 L
Plt Count 180
APTT Cancelled 65.1 H 75.1 H
Sodium 139
Potassium 3.9
Chloride 109 H
Carbon Dioxide 20 L
BUN 20
Creatinine 0.8
Glucose 135 H
Calcium 8.5
Vital Signs:
Vital Signs
Temp Pulse Resp BP Pulse Ox
98.6 F 64 20 113/45 96
05/10/24 11:00 05/10/24 11:00 05/10/24 11:00 05/10/24 11:00 05/10/24 11:00
I&O
05/09/24 05/10/24 05/11/24
06:59 06:59 06:59
Intake Total 480 / 480
Balance 480 / 480
[2024-05-10 14:54] LABS: Glucose - Point of Care 135 mg/dl (70-99)
--- NOTE | 2024-05-10 15:00 | CON.NEURO ---
Consultation
Order
Date of Consultation: 05/10/24
Requesting Provider: Kenrick Sanon MD
Reason for Consult: Stroke alert
Called in: 14:52.
Neurology Consultation Note.
CC: tingling
HPI: This is an 83-year-old right-handed man who presented to [facility] on May 09, 2024 with chest pain. He found to be in atrial fibrillation with RVR with rate up to 150. He was started on Cardizem drip and was switched from
Eliquis to Heparin gtt.
Stroke alert was initiated following an acute right sided sensory deficits and dysarthria that started around 1445.
VS: 125/52, 59, afebrile, FS-135, PTT 75.1, PT-16.9, LDL 113, TN -0.031(0.000-0.034)
MAR: Eliquis 5 mg given at 12:59 on 05/09/2024
According to EMR the patient had similar episodes lasting for several minutes in 2022 when he developed dysarthria and right-sided weakness with presenting ER BP of 198/95.
CT head-moderate subcortical, deep, and periventricular white matter low-attenuation, compatible with changes of chronic small vessel ischemic disease. Mild global parenchymal volume loss
CTA head/neck- no LVO/stenoses
PMH: Afib, HTN, DLP, stage IV prostate cancer on Abiraterone, bladder CA, MDD, GERD, BPH, TORI, BMI 33
PSH:TURP, right knee surgery, bilateral cataract surgery, cardioversion (03/2024)
SH: lives at home
All:NKDA
ROS:
Cardiovascular: Positive for transient chest pain
Neurological: Positive right-sided sensory deficits and dysarthria
General: Well developed. In no acute distress.
Stroke Scale
1A Level of Consciousness:�0/3
1B LOC Questions:�0/2
1C LOC Commands:�0/2
2 Best Gaze:�0/2
3 Visual:�0/3
4 Facial Palsy:�1/3
5A Motor Arm LEFT:�0/4
5B Motor Arm RIGHT:�0/4
6A Motor Leg LEFT:�0/4
6B Motor Leg RIGHT:�0/4
7 Limb Ataxia:�0/2
8 Sensory:�1/2
9 Best Language:�0/3
10 Dysarthria:�1/2
11 Extinction/Inattention:�0/2
Total NIHSS:�3
Assessment and Plan:
I. Acute left lacunar stroke. Not a candidate for IV thrombolysis or mechanical thrombectomy.
II. PA A-Fib
III. Stage IV prostate CA. Abiraterone is associated with an increased risk of stroke
-Avoid cerebral hypoperfusion
-NPO, dysphagia evaluation
-ASA 81 mg QD
-Cardiology follow up
-Please check UA, ua cx
-Brain MRI without carly
-Will continue to follow
I personally reviewed all radiology and labs along with past medical records pertinent to current medical problems. Total time spent in patient care is 62 minutes.
Thank you for allowing us to participate in the care of this patient. Please do not hesitate to contact us with any questions or concerns.
Subjective/Objective
Subjective Data
Date of Service: May 10, 2024
Objective Data
Vital Signs
Temp Pulse Resp BP Pulse Ox
36.2 C 59 20 125/52 95
05/10/24 14:58 05/10/24 14:58 05/10/24 14:58 05/10/24 14:58 05/10/24 14:58
Lab Results
05/10/24 03:28
05/10/24 03:28
PT 16.8 Sec (11.4-14.6) H 05/09/24 08:49
INR 1.34 05/09/24 08:49
APTT 75.1 Sec (23.4-35.0) H 05/10/24 10:10
Sodium 139 mmol/L (135-145) 05/10/24 03:28
Potassium 3.9 mmol/L (3.5-5.1) 05/10/24 03:28
BUN 20 mg/dl (9-20) 05/10/24 03:28
Glucose 135 mg/dl (70-99) H 05/10/24 03:28
Calcium 8.5 mg/dl (8.4-10.2) 05/10/24 03:28
LDL Cholesterol, Calc 113 mg/dl 05/10/24 03:28
Patient Allergies
poison altaf extract Allergy (Verified 05/09/24 15:57)
Rash
CVA Assessment
Tenecteplase Contraindications
Reasons for NON-Tx with Thrombolytics ABSOLUTE Exclusions: PTT >40 and PT >15
Medications
-
Active Medications
Generic Name Dose Route Start Last Admin
Trade Name Freq PRN Reason Stop Dose Admin
Acetaminophen 650 mg 05/09/24 15:52
Acetaminophen 325 Mg Tablet PO 06/06/24 15:51
Q4HPRN PRN
mild pain/ fever>100.5F
Amiodarone HCl 400 mg 05/09/24 20:00 05/10/24 07:58
Amiodarone 200 Mg Tablet PO 06/06/24 19:59 400 mg
BID GONZALEZ Administration
Aspirin 81 mg 05/10/24 08:00 05/10/24 07:58
Aspirin 81 Mg Chewable Tablet PO 06/07/24 07:59 81 mg
DAILY GONZALEZ Administration
Atorvastatin Calcium 40 mg 05/09/24 18:00 05/09/24 17:16
Atorvastatin (Lipitor) 40 Mg Tablet PO 06/06/24 17:59 Not Given
QPM GONZALEZ
Heparin Sodium 25,000 units in 250 mls @ 0 mls/hr 05/09/24 20:00 05/09/24 19:58
Heparin 51393 Units/250 Ml IV 250 mls
PER PROTOCOL GONZALEZ Administration
Protocol
Per Protocol
Metoprolol Succinate 25 mg 05/10/24 11:00 05/10/24 11:03
Metoprolol 25 Mg Extended Release Tablet PO 06/07/24 10:59 25 mg
BID GONZALEZ Administration
Abiraterone 250mg 0 mg 05/10/24 08:00 05/10/24 07:58
1000mg [4 X 250mg] PO 06/07/24 07:59 4 mg
Po Daily DAILY GONZALEZ Administration
Prednisone 5 mg 05/10/24 08:00 05/10/24 07:57
Prednisone 5 Mg Tablet PO 06/07/24 07:59 5 mg
DAILY GONZALEZ Administration
Sertraline HCl 50 mg 05/09/24 22:00 05/09/24 21:54
Sertraline 50 Mg Tablet PO 06/06/24 21:59 50 mg
HS GONZALEZ Administration
Sodium Chloride 0 flush 05/09/24 16:00
Sodium Chloride 0.9% (Flush) Syringe IV 06/06/24 15:59
PER PROTOCOL GONZALEZ
Tamsulosin HCl 0.4 mg 05/09/24 20:00 05/10/24 07:57
Tamsulosin 0.4 Mg Capsule PO 06/06/24 19:59 0.4 mg
BID GONZALEZ Administration
Valsartan 160 mg 05/09/24 20:00 05/10/24 07:57
Valsartan 80 Mg Tablet PO 06/06/24 19:59 160 mg
BID GONZALEZ Administration
Home Medications
�Medication �Instructions �Recorded
tamsulosin 0.4 mg capsule (Flomax) 0.4 mg PO BID Urinary issue 03/29/14
abiraterone 500 mg tablet 1,000 mg PO DAILY Cancer 01/31/23
prednisone 5 mg tablet 5 mg PO DAILY Anti-Inflammatory 01/31/23
sertraline 50 mg tablet 50 mg PO HS Depression 08/13/23
apixaban 5 mg tablet (Eliquis) 5 mg PO BID Blood Clot 05/09/24
Prevention/Tx
calcium 600 mg (as 1 tab PO HS Supplement 05/09/24
carbonate)-vitamin D3 10 mcg (400
unit) tablet (Calcium 600 + D(3))
valsartan 160 mg tablet 160 mg PO BID Blood Pressure 05/09/24
Vital Signs and Labs
-
Vital Signs and Labs:
Vital Signs
Temp Pulse Resp BP Pulse Ox
36.2 C 63 18 121/51 95
05/10/24 15:34 05/10/24 15:34 05/10/24 15:34 05/10/24 15:34 05/10/24 15:34
Lab Results
05/10/24 03:28
05/10/24 03:28
PT 16.8 Sec (11.4-14.6) H 05/09/24 08:49
INR 1.34 05/09/24 08:49
APTT 75.1 Sec (23.4-35.0) H 05/10/24 10:10
Sodium 139 mmol/L (135-145) 05/10/24 03:28
Potassium 3.9 mmol/L (3.5-5.1) 05/10/24 03:28
BUN 20 mg/dl (9-20) 05/10/24 03:28
Glucose 135 mg/dl (70-99) H 05/10/24 03:28
Calcium 8.5 mg/dl (8.4-10.2) 05/10/24 03:28
LDL Cholesterol, Calc 113 mg/dl 05/10/24 03:28
Medications
-
Medications:
Generic Name Dose Route Start Last Admin
Trade Name Freq PRN Reason Stop Dose Admin
Acetaminophen 650 mg 05/09/24 15:52
Acetaminophen 325 Mg Tablet PO 06/06/24 15:51
Q4HPRN PRN
mild pain/ fever>100.5F
Amiodarone HCl 400 mg 05/09/24 20:00 05/10/24 07:58
Amiodarone 200 Mg Tablet PO 06/06/24 19:59 400 mg
BID GONZALEZ Administration
Aspirin 81 mg 05/10/24 08:00 05/10/24 07:58
Aspirin 81 Mg Chewable Tablet PO 06/07/24 07:59 81 mg
DAILY GONZALEZ Administration
Atorvastatin Calcium 40 mg 05/09/24 18:00 05/09/24 17:16
Atorvastatin (Lipitor) 40 Mg Tablet PO 06/06/24 17:59 Not Given
QPM GONZALEZ
Heparin Sodium 25,000 units in 250 mls @ 0 mls/hr 05/09/24 20:00 05/09/24 19:58
Heparin 86713 Units/250 Ml IV 250 mls
PER PROTOCOL GONZALEZ Administration
Protocol
Per Protocol
Metoprolol Succinate 25 mg 05/10/24 11:00 05/10/24 11:03
Metoprolol 25 Mg Extended Release Tablet PO 06/07/24 10:59 25 mg
BID GONZALEZ Administration
Abiraterone 250mg 0 mg 05/10/24 08:00 05/10/24 07:58
1000mg [4 X 250mg] PO 06/07/24 07:59 4 mg
Po Daily DAILY GONZALEZ Administration
Prednisone 5 mg 05/10/24 08:00 05/10/24 07:57
Prednisone 5 Mg Tablet PO 06/07/24 07:59 5 mg
DAILY GONZALEZ Administration
Sertraline HCl 50 mg 05/09/24 22:00 05/09/24 21:54
Sertraline 50 Mg Tablet PO 06/06/24 21:59 50 mg
HS GONZALEZ Administration
Sodium Chloride 0 flush 05/09/24 16:00
Sodium Chloride 0.9% (Flush) Syringe IV 06/06/24 15:59
PER PROTOCOL GONZALEZ
Tamsulosin HCl 0.4 mg 05/09/24 20:00 05/10/24 07:57
Tamsulosin 0.4 Mg Capsule PO 06/06/24 19:59 0.4 mg
BID GONZALEZ Administration
Valsartan 160 mg 05/09/24 20:00 05/10/24 07:57
Valsartan 80 Mg Tablet PO 06/06/24 19:59 160 mg
BID GONZALEZ Administration
Home Medications
-
Home Medications
tamsulosin 0.4 mg capsule (Flomax) 0.4 mg PO BID Urinary issue 03/29/14
abiraterone 500 mg tablet 1,000 mg PO DAILY Cancer 01/31/23
prednisone 5 mg tablet 5 mg PO DAILY Anti-Inflammatory 01/31/23
sertraline 50 mg tablet 50 mg PO HS Depression 01/31/23
apixaban 5 mg tablet (Eliquis) 5 mg PO BID Blood Clot Prevention/Tx 05/09/24
calcium 600 mg (as carbonate)-vitamin D3 10 mcg (400 unit) tablet (Calcium 600 + D(3)) 1 tab PO HS Supplement 05/09/24
valsartan 160 mg tablet 160 mg PO BID Blood Pressure 05/09/24
--- NOTE | 2024-05-10 15:07 | PTCARENOTE ---
was called to tis patient's room for his c/o of numbness of te right side of the face and word slurring. VS obtained and stable. NIH SS performed and patient had a right arm drift, right face sensation deficit and slurring. Daughter at the bedside
stated that she noticed how patient had liquids leaking on the right side of his face
MD notified and stroke alert called simultaneously. Heparin gtt stopped as per Neurology. patient transported for CT shah
--- NOTE | 2024-05-10 15:35 | PTCARENOTE ---
back from CT, no intracranial hemorrhage, VS obtained, notified, restrt heparin gtt as per neurology. patient is in bed, symptoms remain the same with sensation impairment and slurred speech
--- NOTE | 2024-05-10 16:25 | PTOTSP ---
Speech Language Pathology
Pt seen for clinical bedside swallow evaluation. Lingual deviation to the R with decreased lingual strength to L. P.O. trials of puree, regular solids, and thin liquids provided. Adequate mastication, bolus formation, and A-P transit noted with
no oral residue. No overt signs of aspiration.
Recommend:
(1) Regular solids/thin liquids
(2) Aspiration precautions: check for pocketing on R, slow rate, sit upright
(3) Meds as tolerated
(4) MUNITIONS HANDLER to continue to follow, pending neuro workup
[2024-05-10] MEDS: LIPITOR 40 MG PO (16:28)
[2024-05-10] MEDS: NSS 250 IV (16:28)
[2024-05-10 17:14] LABS: APTT 110.9 Sec (23.4-35.0)
--- NOTE | 2024-05-10 17:19 | PTCARENOTE ---
Heparin gtt is @ 1100, two therapeutic PTT assessments achieved. will recheck PTT in AM
[2024-05-10 17:49] LABS: Urine Albumin Trace (Neg - Trace); Urine Bilirubin Negative (Negative); Urine Character Clear (Clear); Urine Color Yellow; Urine Glucose Negative (Negative); Urine Ketone Negative (Negative); Urine Leukocyte 1+ (Negative); Urine Nitrite Negative (Negative); Urine Occult Blood Negative (Negative); Urine Specific Gravity 1.005 (<1.030); Urine Urobilinogen 1+ (Neg - 1+)
[2024-05-10 18:14] LABS: Urine Bacteria Few (Negative)
[2024-05-10] MEDS: HEPARIN 25000 UNITS/250 ML IV (20:21)
[2024-05-10] MEDS: TOPROL XL PO (20:23)
[2024-05-10] MEDS: DIOVAN PO (20:23)
[2024-05-10] MEDS: ZOLOFT 50 MG PO (20:31)
[2024-05-11] VITALS (8 sets, daily range): BP systolic 112–156; BP diastolic 44–99; PULSE 65; O2SAT 95–98; BMI 33.7
[2024-05-11 08:20] LABS: % Basophils 0.5 % (0-2); % Eosinophils 2.2 % (0-6); % Immature Granulocytes 2.2 % (0-0.5); % Lymphocytes 24.1 % (20.5-51.1); % Monocytes 8.6 % (1.7-9.3); % Neutrophils 62.4 % (42.2-75.2); Absolute Eosinophils 0.2 10^3/uL (0-0.7); Absolute Immature Granulocytes 0.2 10^3/uL (0-0.05); Absolute Lymphocytes 1.8 10^3/uL (1.2-3.4); Absolute Monocytes 0.6 10^3/uL (0.1-0.6); Absolute Neutrophils 4.6 10^3/uL (1.4-6.5); Hematocrit 34.6 % (39.0-52.0); Hemoglobin 11.1 g/dL (13.0-18.0); Mean Corp Hgb Conc. 32.1 g/dL (33.0-37.0); Mean Corpuscular Hgb 28.7 pg (27.0-31.0); Mean Corpuscular Volume 89.4 fL (80.0-94.0); Mean Platelet Volume 11.3 fL (7.4-10.4); Nucleated Red Blood Cells % 0 % (-); Platelet Count 166 10^3/uL (130-400); Red Blood Cell Count 3.87 10^6/uL (4.70-6.10); Red Cell Dist. Width 14.2 % (11.5-14.5); White Blood Cell Count 7.4 10^3/uL (4.8-10.8)
[2024-05-11 08:22] LABS: APTT 89.9 Sec (23.4-35.0)
--- NOTE | 2024-05-11 08:41 | W.PN.CARDCBS ---
Addendum entered and electronically signed by Rik Bey MD 05/11/24 14:29:
I saw and examined the patient.
The Senior Scientist's note was reviewed and I agree with the note.
Comment: Briefly, 83-year-old man past medical history of paroxysmal atrial fibrillation presenting with substernal chest pressure and found to be in atrial fibrillation with rapid ventricular response
Given chest pressure patient was treated with sublingual nitro as well as Nitropaste and his symptoms resolved concerning for unstable angina
Troponin was detectable but not elevated, rise and fall with peak 0.034
ECG not overtly ischemic
Continue aspirin, high intensity statin and heparin gtt
Was planned for [facility], but this is on hold for w/up of stroke like symptoms
Possible coronary angiography tomorrow pending MRI brain
Underwent recent direct-current cardioversion, but was back in atrial fibrillation with RVR on admission
Spontaneoulsy converted 05/10
Started on PO amio to maintain NSR
Cont heparin with plan to transition back to Eliquis at time of d/c
Discussed with patient and daughter at bedside
Original Note:
Today's Communication / Plan
-
cath cancelled for today
for brain MRI
continue IV heparin, asa, statin, BB
in SR with ectopy. continue amio load
will discuss timing of cath pending neurology evaluation
Impression / Plan
-
Primary Financial Analysis Advisor: Dr. Bey
Assessment:
Presentation with CP
Detectable troponin
Paroxysmal atrial fibrillation with RVR
Chronic anticoagulation with Eliquis
CVA alert 04/2024 for RUE symptoms, head CT negative
ER visit 04/17/2024 for atrial fibrillation, lightheadedness status post successful cardioversion
History of suspected stroke
Hypertension
Hypercholesterolemia
History of bladder cancer status post surgical removal
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
Depression
Recent thyroid biopsies 04/26/24
Lexiscan nuclear stress test 07/20/22: Predominantly fixed defect in basal inferolateral, mid inferior lateral and apex segments consistent with infarction with residual ischemia versus STA, EF 52%
Echo 02/01/2023: EF 55 to 60%, trace MR, mild with peak/mean gradients 19/10 mmHg, mild TR, PAP 30 to 35 mmHg
ECHO 05/10/24: EF 55%, mild concentric LVH, mild MR, moderate AAS with peak/mean gradients 40/22 mmHg, RILEY 1.3 cm�, mild TR, PAP 30 to 35 mmHg
Plan:
-Patient with recent ER visit 04/17/2024 for atrial fibrillation status post successful cardioversion presented back with chest discomfort which woke him from sleep around 4 AM, which was relieved with sublingual nitro and Nitropaste. He was also
back in atrial fibrillation.
-upon review of tele he remains in SR with frequent ectopy. started on amiodarone this admission and on toprol 25mg BID
-he was started on IV heparin 05/09PM. last dose eliquis 05/09AM. s/p CV 04/17/24.
-yesterday was a CVA alert for RUE numbness and tingling. head CT and head/neck CTA negative for acute abnormalities. for brain MRI today. he reports remains with mild symptoms, but much improved. d/w neurology
-cath cancelled for today, timing to be determined. remains CP free. trop peaked at 0.034. continue asa, statin
-Cr stable
-echo with results as above, EF preserved, mod . results reviewed with patient and family at bedside 05/11
-thyroid biopsy results reviewed, nondiagnostic. TSH WNL
-d/w patient and daughter in law at bedside. d/w nursing
Progress Note - Financial Analysis Advisor
Subjective
Date of Service: May 11, 2024
no CP. remains with mild RUE tingling
Objective
Labs:
05/11/24 07:43
Labs
Hgb 11.1 g/dL (13.0-18.0) L 05/11/24 07:43
Hct 34.6 % (39.0-52.0) L 05/11/24 07:43
Plt Count 166 10^3/uL (130-400) 05/11/24 07:43
PT 16.8 Sec (11.4-14.6) H 05/09/24 08:49
INR 1.34 05/09/24 08:49
APTT 89.9 Sec (23.4-35.0) H 05/11/24 07:43
Sodium 139 mmol/L (135-145) 05/10/24 03:28
Potassium 3.9 mmol/L (3.5-5.1) 05/10/24 03:28
BUN 20 mg/dl (9-20) 05/10/24 03:28
Creatinine 0.8 mg/dL (0.7-1.3) 05/10/24 03:28
Glucose 135 mg/dl (70-99) H 05/10/24 03:28
Troponins
05/09/24 05/09/24 05/09/24
08:49 10:30 16:39
Troponin I 0.024 0.025 0.034 D
05/10/24
10:10
Troponin I 0.031
Vital Signs and I&O:
Vital Signs
Temp Pulse Resp BP Pulse Ox
97.7 F 59 22 116/99 94
05/11/24 08:00 05/11/24 08:00 05/11/24 08:00 05/11/24 08:00 05/11/24 08:00
Vital Signs
Temp Pulse Resp BP Pulse Ox
97.7 F 59 22 116/99 94
05/11/24 08:00 05/11/24 08:00 05/11/24 08:00 05/11/24 08:00 05/11/24 08:00
Intake & Output
05/09/24 05/10/24 05/11/24 05/12/24
07:59 07:59 07:59 07:59
Intake Total 480 / 480 1440 / 1440
Balance 480 / 480 1440 / 1440
Physical Exam
Physical Exam
GEN: No distress, awake, alert, oriented x3
HEENT: supple, anicteric, mmm, eomi
LUNGS: CTA B/L, no wheezes/rales
CV: Reg, S1/S2, 2/6 syst LSB
ABD: soft, BS+, NT/ND
EXT: No cyanosis, clubbing. trace edema of B/L LE
NEURO: Gross non-focal
SKIN: Warm, pink, dry. No rash
[2024-05-11] MEDS: DIOVAN PO ×2 (08:57→20:48)
[2024-05-11] MEDS: TOPROL XL PO ×2 (08:58→20:49)
[2024-05-11] MEDS: NON-FORMULARY ITEM 1000 MG PO (09:00)
[2024-05-11] MEDS: FLOMAX 0.4 MG PO ×2 (09:00→20:49)
[2024-05-11] MEDS: PACERONE 400 MG PO ×2 (09:00→20:49)
[2024-05-11] MEDS: LOW STRENGTH ASPIRIN 81 MG PO (09:01)
[2024-05-11 09:47] LABS: Blood Urea Nitrogen 26 mg/dl (9-20); Calcium 8.3 mg/dl (8.4-10.2); Carbon Dioxide 21 mmol/L (22-30); Chloride 109 mmol/L (98-107); Estimated Creatinine Clearance 65 ml/min; Glucose 112 mg/dl (70-99); Potassium 4.2 mmol/L (3.5-5.1); Sodium 140 mmol/L (135-145); eGFR > 60.00
--- NOTE | 2024-05-11 09:58 | CM ---
Pt seen bedside w/ Felisa ROBERTSON. Pt lives alone in [address] to [address]
Per pt, he previously used a walker for support but does not use it anymore. Pt denies DME in the home but will look into getting shower rails/grab bars.
Pt denies SNF/VN/PT hx
Address, point of contacts and insurance verified
Pt requested his Felisa ROBERTSON to be added to contact list
PCP: Dr. Masoud Hancock
Pharmacy: [facility]
Cardiac cath cancelled today. Will determine timing of cath pending neuro eval per cardio note
PT/OT pending eval
Plan: Home; no needs anticipated
CM will cont. to follow for poss d/c needs
--- NOTE | 2024-05-11 12:24 | W.PN.HOSP.TC ---
Today's Communication/Plan
-
Monitor vital signs see plan
MRI pending
Cardiac catheterization canceled for today
Continue with amiodarone, metoprolol
PT/OT
cw hep gtt
ok for diet today; ordered
Assessment / Plan
Assessment / Plan
General: Comfortable and Conversant
HEENT: Anicteric and Moist mucous membranes
Respiratory: Clear and Non Labored Respirations
Cardiac: S1/S2, Irregular Rhythm and Murmur (2/6 Systolic Murmur); No Tachycardia
GI: Soft and Non Tender
Musculoskeletal:No Edema
Neuro: Awake, Alert, Oriented; mild right sided weakness
Psych: Calm
Recurrent Atrial Fibrillation with Rapid Ventricular Response
hx of paroxysmal afib s/p CV 3 weeks ago
-Cardiology following. plan for cath 05/11
echo
now on hep gtt; holding eliquis
-Continue Cardizem drip
started amio
npo past midnight
Stroke alert 05/10.
right hand weaknes,right sided face numbness, aphasia. Symptoms markedly improving
CT neg for bleed; cw hep gtt
MRI pending
Neurology ordered CT scan which was negative for hemorrhage. Evaluated by speech and okay for regular diet
Cardiac catheterization canceled today
Discussed with daughter at bedside.
Essential Hypertension
cw home meds
Metastatic Bladder/Prostate Cancer with Bony Mets
-Continue prednisone
-Patient maintained on abiraterone as outpatient
Depression
-Continue sertraline
DVT proph: Eliquis
Code Status: Full Code
I spent a total of 52 minutes with the patient or on the floor. More than 50% of this time involved counseling and coordination of care.
Anticipated Discharge: > 48 hours
Subjective/Interval History
-
Date of Service: May 11, 2024
denies pain
Objective Data
-
Labs:
Laboratory Results
05/11/24
07:43
WBC 7.4
Hgb 11.1 L
Hct 34.6 L
Plt Count 166
APTT 89.9 H
Sodium 140
Potassium 4.2
Chloride 109 H
Carbon Dioxide 21 L
BUN 26 H
Creatinine 1.0
Glucose 112 H
Calcium 8.3 L
Vital Signs:
Vital Signs
Temp Pulse Resp BP Pulse Ox
98.9 F 61 16 128/44 96
05/11/24 11:33 05/11/24 11:33 05/11/24 11:33 05/11/24 11:33 05/11/24 11:33
I&O
05/10/24 05/11/24 05/12/24
06:59 06:59 06:59
Intake Total 480 / 480 1440 / 1440
Balance 480 / 480 1440 / 1440
--- NOTE | 2024-05-11 12:55 | W.PN.NEURO.1 ---
Today's Communication / Plan
-
.
Subjective/Objective
Subjective Data
Date of Service: May 11, 2024
Neurology follow-up note
Mr. Fernández states that his right-sided sensory symptoms and dysarthria lasted for an hour with complete resolution. He states that he was seen at [facility] and had unremarkable seizure workup.
No reports of headaches, change in vision, strength
PMH: Afib, HTN, DLP, stage IV prostate cancer on Abiraterone, bladder CA, MDD, GERD, BPH, TORI, BMI 33
PSH:TURP, right knee surgery, bilateral cataract surgery, cardioversion (03/2024)
SH: lives at home
All:NKDA
ROS:Negative for headache, abnormal movements, dyspnea, chest pain, nausea, abdominal pain
General: Well developed. In no acute distress.
Cardio: Regular rate and rhythm without murmur. Extremities are without cyanosis or edema.
Neuro:
Mental Status: Alert, oriented to person, place, and date. Normal attention and recall. Good fund of knowledge. Follows complex requests across the midline. Comprehension, naming, and repetition intact. I
Cranial Nerves: Unable to visualize optic discs due to insufficient dilatation. Pupils are equally round and reactive to light. EOMs full. Visual forbes full to confrontation. No ptosis. No nystagmus. V1-V3 intact to light touch and pinprick
bilaterally, symmetric. Face symmetric. Normal hearing AU. The palate elevated well. SCMs and traps 5/5. Tongue midline. No dysarthria.
Motor: Normal bulk and tone. No pronator or arm drift. Strength 5/5 throughout. No clonus.
Coordination: No dysmetria or tremor.
Gait: deferred
Assessment and Plan:
I. Transient right hemisensory/motor deficits/dysarthria. Differential diagnosis includes vascular versus epileptic
II. PA A-Fib
III. Stage IV prostate CA. Abiraterone is associated with an increased risk of stroke
-Avoid cerebral hypoperfusion
-Please obtain medical records from [facility]
-Brain MRI without carly
-Will consider starting Keppra based on brain MRI report
-The case was discussed with patient's spouse
I personally reviewed all radiology and labs along with past medical records pertinent to current medical problems. Total time spent in patient care is 34 minutes.
Thank you for allowing us to participate in the care of this patient. Please do not hesitate to contact us with any questions or concerns.
Objective Data
Vital Signs
Temp Pulse Resp BP Pulse Ox
37.2 C 61 16 128/44 96
05/11/24 11:33 05/11/24 11:33 05/11/24 11:33 05/11/24 11:33 05/11/24 11:33
Lab Results
05/11/24 07:43
05/11/24 07:43
PT 16.8 Sec (11.4-14.6) H 05/09/24 08:49
INR 1.34 05/09/24 08:49
APTT 89.9 Sec (23.4-35.0) H 05/11/24 07:43
Sodium 140 mmol/L (135-145) 05/11/24 07:43
Potassium 4.2 mmol/L (3.5-5.1) 05/11/24 07:43
BUN 26 mg/dl (9-20) H 05/11/24 07:43
Glucose 112 mg/dl (70-99) H 05/11/24 07:43
Calcium 8.3 mg/dl (8.4-10.2) L 05/11/24 07:43
LDL Cholesterol, Calc 113 mg/dl 05/10/24 03:28
Patient Allergies
poison altaf extract Allergy (Verified 05/09/24 15:57)
Rash
Vital Signs and Labs
-
Vital Signs and Labs:
Vital Signs
Temp Pulse Resp BP Pulse Ox
37.2 C 61 16 128/44 96
05/11/24 11:33 05/11/24 11:33 05/11/24 11:33 05/11/24 11:33 05/11/24 11:33
Lab Results
05/11/24 07:43
05/11/24 07:43
PT 16.8 Sec (11.4-14.6) H 05/09/24 08:49
INR 1.34 05/09/24 08:49
APTT 89.9 Sec (23.4-35.0) H 05/11/24 07:43
Sodium 140 mmol/L (135-145) 05/11/24 07:43
Potassium 4.2 mmol/L (3.5-5.1) 05/11/24 07:43
BUN 26 mg/dl (9-20) H 05/11/24 07:43
Glucose 112 mg/dl (70-99) H 05/11/24 07:43
Calcium 8.3 mg/dl (8.4-10.2) L 05/11/24 07:43
LDL Cholesterol, Calc 113 mg/dl 05/10/24 03:28
Medications
-
Medications:
Generic Name Dose Route Start Last Admin
Trade Name Freq PRN Reason Stop Dose Admin
Acetaminophen 650 mg 05/09/24 15:52
Acetaminophen 325 Mg Tablet PO 06/06/24 15:51
Q4HPRN PRN
mild pain/ fever>100.5F
Amiodarone HCl 400 mg 05/09/24 20:00 05/11/24 09:00
Amiodarone 200 Mg Tablet PO 06/06/24 19:59 400 mg
BID GONZALEZ Administration
Aspirin 81 mg 05/10/24 08:00 05/11/24 09:01
Aspirin 81 Mg Chewable Tablet PO 06/07/24 07:59 81 mg
DAILY GONZALEZ Administration
Atorvastatin Calcium 40 mg 05/09/24 18:00 05/10/24 16:28
Atorvastatin (Lipitor) 40 Mg Tablet PO 06/06/24 17:59 40 mg
QPM GONZALEZ Administration
Heparin Sodium 25,000 units in 250 mls @ 0 mls/hr 05/09/24 20:00 05/10/24 20:21
Heparin 53475 Units/250 Ml IV 250 mls
PER PROTOCOL GONZALEZ Administration
Protocol
Per Protocol
Metoprolol Succinate 25 mg 05/10/24 11:00 05/11/24 08:58
Metoprolol 25 Mg Extended Release Tablet PO 06/07/24 10:59 Not Given
BID GONZALEZ
Abiraterone 250mg 0 mg 05/10/24 08:00 05/11/24 09:00
1000mg [4 X 250mg] PO 06/07/24 07:59 1,000 mg
Po Daily DAILY GONZALEZ Administration
Prednisone 5 mg 05/10/24 08:00 05/10/24 07:57
Prednisone 5 Mg Tablet PO 06/07/24 07:59 5 mg
DAILY GONZALEZ Administration
Sertraline HCl 50 mg 05/09/24 22:00 05/10/24 20:31
Sertraline 50 Mg Tablet PO 06/06/24 21:59 50 mg
HS GONZALEZ Administration
Sodium Chloride 0 flush 05/09/24 16:00
Sodium Chloride 0.9% (Flush) Syringe IV 06/06/24 15:59
PER PROTOCOL GONZALEZ
Tamsulosin HCl 0.4 mg 05/09/24 20:00 05/11/24 09:00
Tamsulosin 0.4 Mg Capsule PO 06/06/24 19:59 0.4 mg
BID GONZALEZ Administration
Valsartan 160 mg 05/09/24 20:00 05/11/24 08:57
Valsartan 80 Mg Tablet PO 06/06/24 19:59 Not Given
BID GONZALEZ
Home Medications
-
Home Medications
tamsulosin 0.4 mg capsule (Flomax) 0.4 mg PO BID Urinary issue 03/29/14
abiraterone 500 mg tablet 1,000 mg PO DAILY Cancer 01/31/23
prednisone 5 mg tablet 5 mg PO DAILY Anti-Inflammatory 01/31/23
sertraline 50 mg tablet 50 mg PO HS Depression 01/31/23
apixaban 5 mg tablet (Eliquis) 5 mg PO BID Blood Clot Prevention/Tx 05/09/24
calcium 600 mg (as carbonate)-vitamin D3 10 mcg (400 unit) tablet (Calcium 600 + D(3)) 1 tab PO HS Supplement 05/09/24
valsartan 160 mg tablet 160 mg PO BID Blood Pressure 05/09/24
[2024-05-11] MEDS: LIPITOR 40 MG PO (18:58)
[2024-05-11] MEDS: DELTASONE 5 MG PO (18:59)
[2024-05-11 20:08] LABS: APTT 58.1 Sec (23.4-35.0)
[2024-05-11] MEDS: HEPARIN 25000 UNITS/250 ML IV (20:08)
[2024-05-11] MEDS: ZOLOFT 50 MG PO (22:10)
[2024-05-12 02:45] LABS: APTT 105.4 Sec (23.4-35.0)
[2024-05-12 03:30] VITALS: BP 159/64
[2024-05-12 05:51] VITALS: BMI 33.7
[2024-05-12 07:04] VITALS: BP 141/78
--- NOTE | 2024-05-12 09:20 | W.PN.CARDCBS ---
Addendum entered and electronically signed by Rik Bey MD 05/12/24 18:36:
I saw and examined the patient on morning rounds.
The Automatic Head Sawyer's note was reviewed and I agree with the note.
Comment: Briefly, 83-year-old man past medical history of paroxysmal atrial fibrillation presenting with substernal chest pressure and found to be in atrial fibrillation with rapid ventricular response
Given chest pressure patient was treated with sublingual nitro as well as Nitropaste and his symptoms resolved concerning for typical angina
Troponin was detectable but not elevated, rise and fall with peak 0.034
ECG was not overtly ischemic
Was planned for LHC, but developed stroke symptoms and found to have small infarct on brain MRI
Has remained asymptomatic from a cardiac standpoint therefore would hold off on invasive coronary angiography at this time given acute stroke
Plan for outpatient PET MPI for further risk stratification, based on this we can decide if LHC is necessary
For now continue medical therapy of presumed CAD with aspirin, high intensity statin and beta-abilio as antianginal
Underwent recent direct-current cardioversion, but was back in atrial fibrillation with RVR on admission
Spontaneously converted 05/10
Started on PO amio to maintain NSR, would continue on discharge
Eliquis on hold, would resume when safe from neurostandpoint for cardioembolic prophylaxis
Discussed with family at bedside
Original Note:
Today's Communication / Plan
-
No cath this admission. Plan for OP PET/CT stress which is being arranged.
Transition heparin to Eliquis once ok w/ neurology.
Remains in SR, continue amiodarone, transition to 200mg BID for 2 weeks at discharge, then decrease to 200mg daily thereafter.
Continue lipitor 40mg daily
Continue Toprol 25mg BID, valsartan 160mg BID
Follow up arranged
Impression / Plan
-
Primary Cutter Operator Helper: Dr. Bey
Assessment:
Presentation with CP
Detectable troponin
Paroxysmal atrial fibrillation with RVR
Chronic anticoagulation with Eliquis
CVA alert 04/2024 for RUE symptoms, head CT negative
ER visit 04/17/2024 for atrial fibrillation, lightheadedness status post successful cardioversion
History of suspected stroke
Hypertension
Hypercholesterolemia
History of bladder cancer status post surgical removal
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
Depression
Recent thyroid biopsies 04/26/24
Lexiscan nuclear stress test 07/20/22: Predominantly fixed defect in basal inferolateral, mid inferior lateral and apex segments consistent with infarction with residual ischemia versus STA, EF 52%
Echo 02/01/2023: EF 55 to 60%, trace MR, mild with peak/mean gradients 19/10 mmHg, mild TR, PAP 30 to 35 mmHg
ECHO 05/10/24: EF 55%, mild concentric LVH, mild MR, moderate with peak/mean gradients 40/22 mmHg, RILEY 1.3 cm�, mild TR, PAP 30 to 35 mmHg
Plan:
-Presented with chest pain. Recently in [facility] with rapid atrial fibrillation, s/p CV 04/17. Presented back w/ chest pain relieved w/ nitro.
-Troponin within normal limits, but detectable, up to 0.034, trending down thereafter.
-Plan initially was for cath, however then patient developed RUE numbness. Found to have small acute infarction within L thalamus. No evidence of hemorrhagic transformation.
-Given acute CVA, no plans for cath at this time. Will arrange for OP PET/CT stress testing in a few weeks to assess/risk stratify.
-In rapid atrial fibrillation on arrival to ER, started on amiodarone 400mg BID this admission and converted to SR after first dose.
-Remains in SR on review of telemetry. HR stable, continue amiodarone load, continue Toprol 25mg BID.
-Started on IV heparin earlier in admission. On Eliquis 5mg BID as OP. Would stop heparin and switch to Eliquis 5mg BID once ok w/ neuro.
-Echo 05/10 with EF 55%, mild MR and moderate as noted above.
-Follow up arranged.
Progress Note - Cutter Operator Helper
Subjective
Date of Service: May 12, 2024
No further chest pain, remains in SR.
Objective
Labs:
Labs
Hgb 11.1 g/dL (13.0-18.0) L 05/11/24 07:43
Hct 34.6 % (39.0-52.0) L 05/11/24 07:43
Plt Count 166 10^3/uL (130-400) 05/11/24 07:43
PT 16.8 Sec (11.4-14.6) H 05/09/24 08:49
INR 1.34 05/09/24 08:49
APTT 105.4 Sec (23.4-35.0) H 05/12/24 02:23
Sodium 140 mmol/L (135-145) 05/11/24 07:43
Potassium 4.2 mmol/L (3.5-5.1) 05/11/24 07:43
BUN 26 mg/dl (9-20) H 05/11/24 07:43
Creatinine 1.0 mg/dL (0.7-1.3) 05/11/24 07:43
Glucose 112 mg/dl (70-99) H 05/11/24 07:43
Troponins
05/09/24 05/09/24 05/09/24
08:49 10:30 16:39
Troponin I 0.024 0.025 0.034 D
05/10/24
10:10
Troponin I 0.031
Vital Signs and I&O:
Vital Signs
Temp Pulse Resp BP Pulse Ox
97.9 F 73 18 141/78 96
05/12/24 07:04 05/12/24 07:04 05/12/24 07:04 05/12/24 07:04 05/12/24 07:04
Vital Signs
Temp Pulse Resp BP Pulse Ox
97.9 F 73 18 141/78 96
05/12/24 07:04 05/12/24 07:04 05/12/24 07:04 05/12/24 07:04 05/12/24 07:04
Intake & Output
05/10/24 05/11/24 05/12/24 05/13/24
06:59 06:59 06:59 06:59
Intake Total 480 / 480 1440 / 1440 1200 / 1200
Balance 480 / 480 1440 / 1440 1200 / 1200
Physical Exam
Physical Exam
GEN: No distress, awake, alert, oriented x3
HEENT: supple, anicteric, mmm, eomi
LUNGS: CTA B/L, no wheezes/rales
CV: Reg, S1/S2, 2/6 syst LSB
EXT: No cyanosis, clubbing. trace edema of B/L LE
NEURO: Gross non-focal
SKIN: Warm, pink, dry. No rash
[2024-05-12 09:36] VITALS: BP 168/79; PULSE 74; O2SAT 98
[2024-05-12 10:00] LABS: % Basophils 0.3 % (0-2); % Eosinophils 2.1 % (0-6); % Immature Granulocytes 1.6 % (0-0.5); % Lymphocytes 21.7 % (20.5-51.1); % Monocytes 7.4 % (1.7-9.3); % Neutrophils 66.9 % (42.2-75.2); Absolute Eosinophils 0.2 10^3/uL (0-0.7); Absolute Immature Granulocytes 0.1 10^3/uL (0-0.05); Absolute Lymphocytes 1.6 10^3/uL (1.2-3.4); Absolute Monocytes 0.6 10^3/uL (0.1-0.6); Hematocrit 35.3 % (39.0-52.0); Mean Corpuscular Hgb 29.3 pg (27.0-31.0); Mean Corpuscular Volume 86.1 fL (80.0-94.0); Nucleated Red Blood Cells % 0 % (-); Platelet Count 178 10^3/uL (130-400); Red Cell Dist. Width 13.8 % (11.5-14.5); White Blood Cell Count 7.5 10^3/uL (4.8-10.8)
[2024-05-12] MEDS: PACERONE 400 MG PO (10:03)
[2024-05-12] MEDS: FLOMAX 0.4 MG PO (10:03)
[2024-05-12] MEDS: DELTASONE 5 MG PO (10:03)
[2024-05-12] MEDS: LOW STRENGTH ASPIRIN 81 MG PO (10:03)
[2024-05-12] MEDS: TOPROL XL 25 MG PO (10:04)
[2024-05-12] MEDS: NON-FORMULARY ITEM 1000 MG PO (10:05)
[2024-05-12] MEDS: DIOVAN 160 MG PO (10:08)
[2024-05-12 10:13] LABS: APTT 101.2 Sec (23.4-35.0)
[2024-05-12 11:00] VITALS: BP 148/71
[2024-05-12 11:11] LABS: Blood Urea Nitrogen 27 mg/dl (9-20); Calcium 8.5 mg/dl (8.4-10.2); Carbon Dioxide 20 mmol/L (22-30); Chloride 109 mmol/L (98-107); Estimated Creatinine Clearance 72 ml/min; Glucose 134 mg/dl (70-99); Potassium 4.3 mmol/L (3.5-5.1); Sodium 142 mmol/L (135-145); eGFR > 60.00
--- NOTE | 2024-05-12 11:28 | W.PN.HOSP.TC ---
Addendum entered and electronically signed by Kenrick Sanon MD 05/12/24 11:53:
Time of Discharge 38 minutes
Original Note:
Today's Communication/Plan
-
Monitor vitals
See plan
Discharge today
Hold Eliquis on discharge, can start taking Eliquis 05/14/2024. Discussed with neurology
cardiology recs pending
Discussed with daughter
Assessment / Plan
Assessment / Plan
General: Comfortable and Conversant
HEENT: Anicteric and Moist mucous membranes
Respiratory: Clear and Non Labored Respirations
Cardiac: S1/S2, Irregular Rhythm and Murmur (2/6 Systolic Murmur); No Tachycardia
GI: Soft and Non Tender
Musculoskeletal:No Edema
Neuro: Awake, Alert, Oriented; mild right sided weakness
Psych: Calm
Recurrent Atrial Fibrillation with Rapid Ventricular Response
hx of paroxysmal afib s/p CV 3 weeks ago
-Cardiology following. No plan for cath given recent CVA. Patient will follow with cardiology outpatient
echo with a EF 55%, aortic stenosis
now on hep gtt; holding eliquis. Discussed with neurology and they are recommending holding Eliquis on dc until wednesday. can take eliquis monday 05/14
on PO metoprolol
started amio
npo past midnight
Acute CVA
right hand weaknes,right sided face numbness, aphasia. Symptoms markedly improving
CT neg for bleed; cw hep gtt
MRI with acute CVA
Neurology ordered CT scan which was negative for hemorrhage. Evaluated by speech and okay for regular diet
neurology recommending holding Eliquis until Wednesday. Patient follow-up with neurology outpatient
Cardiac catheterization cancelled
Discussed with daughter at bedside.
Essential Hypertension
cw home meds
Metastatic Bladder/Prostate Cancer with Bony Mets
-Continue prednisone
-Patient maintained on abiraterone as outpatient
Depression
-Continue sertraline
DVT proph: Eliquis
Code Status: Full Code
Anticipated Discharge: Today
Subjective/Interval History
-
Date of Service: May 12, 2024
denies pain
Objective Data
-
Labs:
Laboratory Results
05/12/24 05/12/24
02:23 09:50
WBC 7.5
Hgb 12.0 L
Hct 35.3 L
Plt Count 178
APTT 105.4 H 101.2 H
Sodium 142
Potassium 4.3
Chloride 109 H
Carbon Dioxide 20 L
BUN 27 H
Creatinine 0.9
Glucose 134 H
Calcium 8.5
Vital Signs:
Vital Signs
Temp Pulse Resp BP Pulse Ox
97.9 F 78 18 168/79 96
05/12/24 07:04 05/12/24 10:04 05/12/24 07:04 05/12/24 10:08 05/12/24 07:04
I&O
05/11/24 05/12/24 05/13/24
06:59 06:59 06:59
Intake Total 1440 / 1440 1200 / 1200
Balance 1440 / 1440 1200 / 1200
--- NOTE | 2024-05-12 11:53 | W.DCSUMMARY ---
Discharge Summary
Discharge Data
Date of Admission: 05/09/24
Date of Discharge: 05/12/24
-
Pending Results: No
Hospital Course
83-year-old male with past medical history of atrial fibrillation, essential hypertension, metastatic bladder/prostate cancer with bone metastases, depression came to the hospital with chest pain and recurrent atrial fibrillation with RVR. Patient
was seen by cardiology throughout hospitalization and was started on heparin drip. Echocardiogram was done which showed EF of 55% and aortic stenosis. Patient was planned for cardiac catheterization however prior to that patient developed right
hand numbness and weakness with stroke alert was called. CT scan initially was negative for any hemorrhage. Patient seen by neurology for stroke alert. MRI later showed acute CVA. Given acute stroke cardiology consult cardiac catheterization and
wanted patient to follow-up with them outpatient. Patient was eval by physical therapy recommended home health. Neurology recommended patient to resume Eliquis on 05/14/2024. For his atrial fibrillation he self converted to normal sinus
rhythm after he was started on amiodarone and metoprolol. Over time since his symptoms continue to improve, he was then discharged home with instructions to follow-up with PCP, neurology and cardiology outpatient.
Discharge Plan
-
Patient Disposition: Home (Routine Discharge)
Discharge Diagnosis/Procedures: Recurrent Atrial Fibrillation with Rapid Ventricular Response
Acute CVA
Essential hypertension
Chest pain
Diet: As tolerated
Activity: As tolerated
Driving Restrictions: As prior to admission
Bathing Restrictions: None
Referrals:
Courtney Gupta CRNP [Specified Professional Personl] - in three to four weeks
Masoud Hancock MD [Family Provider] - in less than 1 week
Sahra Blank CRNP [Specified Professional Personl] - 05/15/24 8:00 am (You have a follow up visit with Dr. Bey's MORNING CAREGIVER, Sahra Blank, at the [facility] office. Please call with questions. )
Prescriptions:
New
atorvastatin 40 mg Tablet
40 mg PO QPM Qty: 30 0RF
aspirin 81 mg Tablet,Chewable
81 mg PO DAILY Qty: 30 0RF
amiodarone 200 mg tablet
200 mg PO BID Qty: 28 0RF
Rx Instructions:
Take amiodarone 200mg BID for 2 weeks, then will decrease to 200mg daily thereafter. FILL FIRST
amiodarone 200 mg tablet
200 mg PO DAILY Qty: 30 11RF
Rx Instructions:
Take amiodarone 200mg BID for 2 weeks, then will decrease to 200mg daily thereafter. FILL SECOND
metoprolol succinate 25 mg Tablet Extended Release 24 Hr
25 mg PO BID Qty: 60 11RF
nitroglycerin 0.3 mg tablet, sublingual
0.3 mg sublingual Q5-15M PRN (Reason: chest pain) Qty: 30 0RF
Continued
tamsulosin [Flomax] 0.4 MG capsule
0.4 mg PO BID
prednisone 5 mg Tablet
5 mg PO DAILY
sertraline 50 mg Tablet
50 mg PO HS
abiraterone 500 mg Tablet
1,000 mg PO DAILY
Rx Instructions:
must be taken on empty stomach, at least 1 hr before or 2 hrs after a meal/food
valsartan 160 mg Tablet
160 mg PO BID
calcium carbonate-vitamin D3 [Calcium 600 + D(3)] 600 mg-10 mcg (400 unit) Tablet
1 tab PO HS
Held
Eliquis 5 MG tablet
5 mg PO BID
Hold Instructions: Resume on 05/14/24.
Discharge Orders:
Discharge Patient (As Directed); Ordered 05/12/24
Ordered By: Kenrick Sanon
Discharge Date and Time
Discharge Date/Time: 05/12/24 12:45
Print Language: [id number]
[2024-05-12] MEDS: FLUAD (65 yr+) 2024-2025 FORMULA 0.5 ML IM (12:26)
--- NOTE | 2024-05-12 12:34 | W.PN.NEURO.1 ---
Today's Communication / Plan
-
.
Subjective/Objective
Subjective Data
Date of Service: May 12, 2024
Neurology follow-up note
Mr. Fernández reports no recurrent sensory symptoms or speech dysfunction. No reports of headaches or change in vision
Brain MRI showed an acute small left thalamic infarct.
LDL 114
PMH: Afib, HTN, DLP, stage IV prostate cancer on Abiraterone, bladder CA, MDD, GERD, BPH, TORI, BMI 33
PSH:TURP, right knee surgery, bilateral cataract surgery, cardioversion (03/2024)
SH: lives at home
All:NKDA
ROS:Negative for headache, abnormal movements, dyspnea, chest pain, nausea, abdominal pain
General: Well developed. In no acute distress.
Cardio: Regular rate and rhythm without murmur. Extremities are without cyanosis or edema.
Neuro:
Mental Status: Alert, oriented to person, place, and date. Normal attention and recall. Good fund of knowledge. Follows complex requests across the midline. Comprehension, naming, and repetition intact. I
Cranial Nerves: Unable to visualize optic discs due to insufficient dilatation. Pupils are equally round and reactive to light. EOMs full. Visual forbes full to confrontation. No ptosis. No nystagmus. V1-V3 intact to light touch and pinprick
bilaterally, symmetric. Face symmetric. Normal hearing AU. The palate elevated well. SCMs and traps 5/5. Tongue midline. No dysarthria.
Motor: Normal bulk and tone. No pronator or arm drift. Strength 5/5 throughout. No clonus.
Coordination: No dysmetria or tremor.
Gait: deferred
Assessment and Plan:
I. Acute left thalamic infarct. Likely etiology�small vessel disease, less likely embolic
II. PA A-Fib
III. Stage IV prostate CA. Abiraterone is associated with an increased risk of stroke
-Avoid cerebral hypoperfusion
-Based on OPTIMAS trial published in the Lancet on April 22, 2024 the rates of symptomatic ICH were similarly low for both early (<4 days from stroke onset) and late (>5 days) DOAC administration, and the composite outcome of stroke or hemorrhage
with early initiation was marginally lower at 30 but not 90 days. It is remains unclear whether earlier DOAC treatment reduces the risk of recurrent ischemic stroke.
-Aspirin 81 mg once a day, Lipitor 40 mg nightly
-Outpatient neurology follow-up in 1�2 weeks
-The case was discussed with patient's spouse
I personally reviewed all radiology and labs along with past medical records pertinent to current medical problems. Total time spent in patient care is 35 minutes.
Thank you for allowing us to participate in the care of this patient. Please do not hesitate to contact us with any questions or concerns.
Objective Data
Vital Signs
Temp Pulse Resp BP Pulse Ox
36.6 C 62 18 148/71 96
05/12/24 11:00 05/12/24 11:00 05/12/24 11:00 05/12/24 11:00 05/12/24 11:00
Lab Results
05/12/24 09:50
05/12/24 09:50
PT 16.8 Sec (11.4-14.6) H 05/09/24 08:49
INR 1.34 05/09/24 08:49
APTT 101.2 Sec (23.4-35.0) H 05/12/24 09:50
Sodium 142 mmol/L (135-145) 05/12/24 09:50
Potassium 4.3 mmol/L (3.5-5.1) 05/12/24 09:50
BUN 27 mg/dl (9-20) H 05/12/24 09:50
Glucose 134 mg/dl (70-99) H 05/12/24 09:50
Calcium 8.5 mg/dl (8.4-10.2) 05/12/24 09:50
LDL Cholesterol, Calc 113 mg/dl 05/10/24 03:28
Patient Allergies
poison altaf extract Allergy (Verified 05/09/24 15:57)
Rash
Vital Signs and Labs
-
Vital Signs and Labs:
Vital Signs
Temp Pulse Resp BP Pulse Ox
36.6 C 62 18 148/71 96
05/12/24 11:00 05/12/24 11:00 05/12/24 11:00 05/12/24 11:00 05/12/24 11:00
Lab Results
05/12/24 09:50
05/12/24 09:50
PT 16.8 Sec (11.4-14.6) H 05/09/24 08:49
INR 1.34 05/09/24 08:49
APTT 101.2 Sec (23.4-35.0) H 05/12/24 09:50
Sodium 142 mmol/L (135-145) 05/12/24 09:50
Potassium 4.3 mmol/L (3.5-5.1) 05/12/24 09:50
BUN 27 mg/dl (9-20) H 05/12/24 09:50
Glucose 134 mg/dl (70-99) H 05/12/24 09:50
Calcium 8.5 mg/dl (8.4-10.2) 05/12/24 09:50
LDL Cholesterol, Calc 113 mg/dl 05/10/24 03:28
Medications
-
Medications:
Generic Name Dose Route Start Last Admin
Trade Name Freq PRN Reason Stop Dose Admin
Acetaminophen 650 mg 05/09/24 15:52
Acetaminophen 325 Mg Tablet PO 06/06/24 15:51
Q4HPRN PRN
mild pain/ fever>100.5F
Amiodarone HCl 400 mg 05/09/24 20:00 05/12/24 10:03
Amiodarone 200 Mg Tablet PO 06/06/24 19:59 400 mg
BID GONZALEZ Administration
Aspirin 81 mg 05/10/24 08:00 05/12/24 10:03
Aspirin 81 Mg Chewable Tablet PO 06/07/24 07:59 81 mg
DAILY GONZALEZ Administration
Atorvastatin Calcium 40 mg 05/09/24 18:00 05/11/24 18:58
Atorvastatin (Lipitor) 40 Mg Tablet PO 06/06/24 17:59 40 mg
QPM GONZALEZ Administration
Heparin Sodium 25,000 units in 250 mls @ 0 mls/hr 05/12/24 10:30
Heparin 13151 Units/250 Ml IV
PER PROTOCOL GONZALEZ
Protocol
Per Protocol
Metoprolol Succinate 25 mg 05/10/24 11:00 05/12/24 10:04
Metoprolol 25 Mg Extended Release Tablet PO 06/07/24 10:59 25 mg
BID GONZALEZ Administration
Abiraterone 250mg 0 mg 05/10/24 08:00 05/12/24 10:05
1000mg [4 X 250mg] PO 06/07/24 07:59 1,000 mg
Po Daily DAILY GONZALEZ Administration
Prednisone 5 mg 05/10/24 08:00 05/12/24 10:03
Prednisone 5 Mg Tablet PO 06/07/24 07:59 5 mg
DAILY GONZALEZ Administration
Sertraline HCl 50 mg 05/09/24 22:00 05/11/24 22:10
Sertraline 50 Mg Tablet PO 06/06/24 21:59 50 mg
HS GONZALEZ Administration
Sodium Chloride 0 flush 05/09/24 16:00
Sodium Chloride 0.9% (Flush) Syringe IV 06/06/24 15:59
PER PROTOCOL GONZALEZ
Tamsulosin HCl 0.4 mg 05/09/24 20:00 05/12/24 10:03
Tamsulosin 0.4 Mg Capsule PO 06/06/24 19:59 0.4 mg
BID GONZALEZ Administration
Valsartan 160 mg 05/09/24 20:00 05/12/24 10:08
Valsartan 80 Mg Tablet PO 06/06/24 19:59 160 mg
BID GONZALEZ Administration
Home Medications
-
Home Medications
tamsulosin 0.4 mg capsule (Flomax) 0.4 mg PO BID Urinary issue 03/29/14
abiraterone 500 mg tablet 1,000 mg PO DAILY Cancer 01/31/23
prednisone 5 mg tablet 5 mg PO DAILY Anti-Inflammatory 01/31/23
sertraline 50 mg tablet 50 mg PO HS Depression 01/31/23
apixaban 5 mg tablet (Eliquis) 5 mg PO BID Blood Clot Prevention/Tx 05/09/24
calcium 600 mg (as carbonate)-vitamin D3 10 mcg (400 unit) tablet (Calcium 600 + D(3)) 1 tab PO HS Supplement 05/09/24
valsartan 160 mg tablet 160 mg PO BID Blood Pressure 05/09/24
amiodarone 200 mg tablet 200 mg PO BID #28 tabs 05/12/24
amiodarone 200 mg tablet 200 mg PO DAILY #30 tabs 05/12/24
aspirin 81 mg chewable tablet 81 mg PO DAILY #30 tabs 05/12/24
atorvastatin 40 mg tablet 40 mg PO QPM #30 tabs 05/12/24
metoprolol succinate 25 mg tablet,extended release 24 hr 25 mg PO BID #60 tabs 05/12/24
--- NOTE | 2024-05-12 12:40 | CM ---
Chart reviewed. Pt to d/c today
Pt seen bedside w/ DIL who will transport him home.
IMM reviewed, pt give copy. Copy placed in chart
No CM needs identified at this time
Plan: Home; no needs
--- NOTE | 2024-05-12 13:08 | PTCARENOTE ---
Rn transfer coordinator- Called to patients daughter in law to confirm that patient left with a cva education packet. Daughter in law states that information was provided by PT.
--- NOTE | 2024-05-12 13:37 | PTCARENOTE ---
Rn support coordinator- Miley's Daughter in law called this nurse back stating that patient was supposed to be given a script for nitroglycerine, Thien texted Dr Sanon who electronically sent it ot [facility] in the patient's chart.
== END 2024-05-12 12:45 | disposition home or self-care (01) | DRG 308 ==
LOC: 4 WEST ACU 12:58
PROVIDERS: Internal Medicine Cardiovascular Disease; Physician Assistant; Physician Assistant Medical; ADMITTING PHYSICIAN Hospitalist; ATTENDING PHYSICIAN Internal Medicine; CONSULT PHYSICIAN Psychiatry & Neurology Neurology; EMERGENCY PHYSICIAN Emergency Medicine; FAMILY PHYSICIAN Family Medicine; OTHER PHYSICIAN Internal Medicine Cardiovascular Disease
DX: I48.0 Paroxysmal atrial fibrillation (principal); I63.81 Other cerebral infarction due to occlusion or stenosis of small artery; C79.51 Secondary malignant neoplasm of bone; I10 Essential (primary) hypertension; C61 Malignant neoplasm of prostate; Z79.82 Long term (current) use of aspirin; F32.9 Major depressive disorder, single episode, unspecified; Z79.01 Long term (current) use of anticoagulants; Z53.9 Procedure and treatment not carried out, unspecified reason; E78.00 Pure hypercholesterolemia, unspecified; Z59.89 Other problems related to housing and economic circumstances
CPT/HCPCS: 70450; 70496; 70498; 70551; 80048; 80061; 81003; 81015; 82962; 83735; 84132; 84443; 84484; 85025; 85027; 85610; 85730; 87086; 90662; 92610; 93005; 93306; 96374; 96376; 97116; 97162; 97166; 97530; 99285; G0008; Q9967

== ENCOUNTER 2024-06-12 10:52 | Emergency (ER) | payer OTHER, SELFPAY ==
[2024-06-12 10:59] VITALS: BP 127/86
[2024-06-12 11:39] VITALS: BMI 34.2
--- NOTE | 2024-06-12 11:49 | ED.GENMED ---
History of Present Illness
General
Chief Complaint: Heart Rate Problem
Source: patient
Exam Limitations: none
Time Seen by Provider: 06/12/24 11:22
Nursing documentation reviewed up to this point in time: agreed with
History of Present Illness
History of Present Illness:
83-year-old male with past ministry of paroxysmal A-fib, hypertension, stroke, previous PE presenting to the emergency department today with concerns of intermittent lightheadedness and palpitations. Patient close he does of intermittent A-fib and
feels that he may be in and out of A-fib while at home. He was recently admitted here when he had chest pain and subsequently had a stroke while in the hospital. He was discharged and now was concerned that he had intermittent palpitations and
lightheadedness that he believes is secondary to atrial fibrillation. He was prescribed amiodarone at time of discharge but has not this medication he claims due to some confusion on his part. He has been taking his anticoagulant Eliquis. He
claims that he has had a cardioversion for this in the past that did not result in any long-term resolution. Denies specific chest pain at this point.
Past History
Past History
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
ED Past Surgical History: Orthopedic (Right knee surgery, ), Urological (TURP) and Other (Cataracts)
Social History
Tobacco: Non-smoker
Alcohol: Occasional
Drug: None
Personal:
Living: alone
Employment: Retired
Family History
Family History: Other (Noncontributory)
Review of Systems
Review of Systems
Allergies reviewed?: Yes
All Other Systems: ROS reviewed and negative except as documented in HPI and ROS
Phy Exam
Physical Exam
Physical Exam:
GENERAL: Alert , in no apparent distress
EYE: pupils equal and reactive
NECK: Supple, no significant adenopathy.
ENT: o/p clr, mmm.
CARDIAC: Irregularly irregular rhythm
LUNGS: Clear breath sounds bilaterally, no acute respiratory distress, no wheezes/rales/rhonchi
ABDOMEN: Soft, without focal tenderness, no r/g, no cvat
NEUROLOGICAL: Alert and oriented, no focal neuro deficits
SKIN: Warm and dry, skin intact.
MUSCULOSKELETAL: No edema, well perfused.
PSYCH: Normal and appropriate interaction.
Course
Orders/Labs/Results
Orders:
Orders
06/12/24 10:52
EKG [Electrocardiogram (*1)] Urgent
Reason for Study: Atrial Fibrillation
06/12/24 10:53
EKG- Treatment ONCE
06/12/24 12:35
CBC/With Diff [Complete Blood Count/With Diff] Urgent
TSH Reflex To Free T4 Urgent
06/12/24 13:45
Comprehensive Metabolic Panel Urgent
06/12/24 14:57
Amiodarone [Pacerone] 200 mg PO NOW STA
Abnormal Lab Results
06/12/24 06/12/24
12:35 13:45
RBC 4.45 L 10^6/uL
(4.70-6.10)
Hgb 12.9 L g/dL
(13.0-18.0)
Hct 38.6 L %
(39.0-52.0)
MPV 11.2 H fL
(7.4-10.4)
Abs Immat Gran (auto) 0.2 H 10^3/uL
(0-0.05)
Immature Gran % 1.6 H %
(0-0.5)
BUN 23 H mg/dl
(9-20)
Glucose 101 H mg/dl
(70-99)
AST 16 L U/L
(17-59)
Total Protein 5.9 L g/dl
(6.3-8.2)
06/12/24 12:35
06/12/24 13:45
Vital Signs
Initial and Last Documented VS:
Initial Vital Signs
Temp Pulse Resp BP Pulse Ox
97.8 F 80 18 127/86 98
06/12/24 10:59 06/12/24 10:59 06/12/24 10:59 06/12/24 10:59 06/12/24 10:59
Last Documented Vital Signs
Temp Pulse Resp BP Pulse Ox
97.8 F 85 13 138/96 97
06/12/24 10:59 06/12/24 14:15 06/12/24 14:15 06/12/24 14:00 06/12/24 14:15
MDM/Problems Addressed
MDM/Problems Addressed:
83-year-old male presenting to the emergency department today with concerns of intermittent lightheadedness palpitations since being discharged from the hospital roughly 1 month ago. He has been anticoagulated since. He claims that he may have
been taking his amiodarone. On arrival here heart rate in the 70s to 90s. Patient is taking metoprolol has taken this medication. Patient is not seeking a cardioversion concerning it did not work well with previous attempts. Here labs without
emergent findings did an elevated BUN to creatinine ratio was advised to drink increased amount of fluids. Patient is tolerating by mouth without difficulty. Case was discussed with cardiology recommended restarting amiodarone and otherwise will
follow-up closely as an outpatient. Return precautions given.
*Critical Care Note
Total Time (30-74mins, 75-104mins- exclusive of procedures): Not Applicable
ED Attending Note
-
Portions of this chart may have been created with voice recognition software.� Occasional wrong word or��sound alike� substitutions may have occurred due to the inherent limitations of voice recognition software.
Discharge Plan
Departure
Patient Disposition: Home (Routine Discharge)
Date of Disposition: 06/12/24
Time of Disposition: 14:57
Patient with high blood pressure during this ER visit?: No
Condition: Good
Covid-19: Not Applicable
Discharge Problem:
Atrial fibrillation
Instructions: Atrial Fibrillation (DC)
Prescriptions:
New
amiodarone 200 mg tablet
200 mg PO DAILY 30 Days Qty: 30 0RF
No Action
tamsulosin [Flomax] 0.4 MG capsule
0.4 mg PO BID
prednisone 5 mg Tablet
5 mg PO DAILY
sertraline 50 mg Tablet
50 mg PO HS
abiraterone 500 mg Tablet
1,000 mg PO DAILY
Rx Instructions:
must be taken on empty stomach, at least 1 hr before or 2 hrs after a meal/food
valsartan 160 mg Tablet
160 mg PO BID
calcium carbonate-vitamin D3 [Calcium 600 + D(3)] 600 mg-10 mcg (400 unit) Tablet
1 tab PO HS
Eliquis 5 MG tablet
5 mg PO BID
atorvastatin 40 mg Tablet
40 mg PO QPM Qty: 30 0RF
aspirin 81 mg Tablet,Chewable
81 mg PO DAILY Qty: 30 0RF
amiodarone 200 mg tablet
200 mg PO BID Qty: 28 0RF
Rx Instructions:
Take amiodarone 200mg BID for 2 weeks, then will decrease to 200mg daily thereafter. FILL FIRST
amiodarone 200 mg tablet
200 mg PO DAILY Qty: 30 11RF
Rx Instructions:
Take amiodarone 200mg BID for 2 weeks, then will decrease to 200mg daily thereafter. FILL SECOND
metoprolol succinate 25 mg Tablet Extended Release 24 Hr
25 mg PO BID Qty: 60 11RF
nitroglycerin 0.3 mg tablet, sublingual
0.3 mg sublingual Q5-15M PRN (Reason: chest pain) Qty: 30 0RF
Referrals:
Rik Bey MD [Active] - Follow up in 10 days
UNKNOWN - PT DOES,NOT KNOW [Family Provider] -
Activity Restrictions/Additional Instructions:
You came to the emergency department today for concerns of atrial fibrillation and additional symptoms. Here he had a reassuring assessment. Please restart the amiodarone 200 mg once daily until follow-up with cardiology for further assessment.
Return to the emergency department any worsening, new or concerning symptoms.
Interventions
Interventions:
*Risk Screen - Suicide Last Done: 06/12/24 10:59
*General Assessment Last Done: 06/12/24 10:59
*Neglect/Abuse Screening Last Done: 06/12/24 10:59
ED- Fall Risk Assessment Last Done: 06/12/24 11:39
*ED COVID-19 Vaccine History Last Done: 06/12/24 11:39
ED- Cardiac Assessment Last Done: 06/12/24 11:39
ED- Pulmonary Assessment Last Done: 06/12/24 11:39
Discharge Date and Time
Print Language: TAJIK
[2024-06-12 12:00] VITALS: BP 155/99
[2024-06-12 12:46] LABS: % Basophils 0.8 % (0-2); % Eosinophils 0.8 % (0-6); % Immature Granulocytes 1.6 % (0-0.5); % Lymphocytes 21.7 % (20.5-51.1); % Monocytes 6.9 % (1.7-9.3); % Neutrophils 68.2 % (42.2-75.2); Absolute Basophils 0.1 10^3/uL (0-0.2); Absolute Eosinophils 0.1 10^3/uL (0-0.7); Absolute Immature Granulocytes 0.2 10^3/uL (0-0.05); Absolute Monocytes 0.6 10^3/uL (0.1-0.6); Absolute Neutrophils 6.2 10^3/uL (1.4-6.5); Hematocrit 38.6 % (39.0-52.0); Hemoglobin 12.9 g/dL (13.0-18.0); Mean Corp Hgb Conc. 33.4 g/dL (33.0-37.0); Mean Corpuscular Volume 86.7 fL (80.0-94.0); Mean Platelet Volume 11.2 fL (7.4-10.4); Nucleated Red Blood Cells % 0 % (-); Platelet Count 185 10^3/uL (130-400); Red Blood Cell Count 4.45 10^6/uL (4.70-6.10); Red Cell Dist. Width 14.1 % (11.5-14.5); White Blood Cell Count 9.1 10^3/uL (4.8-10.8)
[2024-06-12 13:00] VITALS: BP 118/90
[2024-06-12 13:32] LABS: TSH Reflex To Free T4 2.42 uIU/ml (0.47-4.68)
[2024-06-12 14:00] VITALS: BP 138/96
[2024-06-12 14:23] LABS: ALT (SGPT) 18 U/L (0-50); AST (SGOT) 16 U/L (17-59); Albumin 3.5 g/dl (3.5-5.0); Alkaline Phosphatase 49 U/L (38-126); Blood Urea Nitrogen 23 mg/dl (9-20); Calcium 8.9 mg/dl (8.4-10.2); Carbon Dioxide 25 mmol/L (22-30); Chloride 106 mmol/L (98-107); Estimated Creatinine Clearance 66 ml/min; Glucose 101 mg/dl (70-99); Potassium 3.9 mmol/L (3.5-5.1); Sodium 137 mmol/L (135-145); Total Bilirubin 0.7 mg/dl (0.2-1.3); Total Protein 5.9 g/dl (6.3-8.2); eGFR > 60.00
[2024-06-12 15:00] VITALS: BP 179/96
[2024-06-12] MEDS: PACERONE 200 MG PO (15:19)
[2024-06-12 15:20] VITALS: BP 126/83
== END 2024-06-12 15:31 | disposition home or self-care (01) ==
LOC: EMR 10:52
PROVIDERS: Physician Assistant; EMERGENCY PHYSICIAN Emergency Medicine
DX: I48.91 Unspecified atrial fibrillation (principal); I10 Essential (primary) hypertension; K21.9 Gastro-esophageal reflux disease without esophagitis; Z86.711 Personal history of pulmonary embolism; Z86.73 Personal history of transient ischemic attack (TIA), and cerebral infarction without residual deficits; Z79.01 Long term (current) use of anticoagulants
CPT/HCPCS: 99284; 80053; 84443; 85025; 93005

== ENCOUNTER 2024-06-29 14:07 | Inpatient (IN) | payer OTHER, SELFPAY ==
[2024-06-29] VITALS (16 sets, daily range): BP systolic 103–157; BP diastolic 52–99; BMI 33.2; BMI 33.0
--- NOTE | 2024-06-29 11:34 | ED.GENMED ---
History of Present Illness
<Neela Suh PA-C - Last Filed: 06/29/24 17:08>
General
Chief Complaint: Heart Rate Problem
Source: patient and family
Exam Limitations: none
Time Seen by Provider: 06/29/24 11:17
History of Present Illness
History of Present Illness:
83yoM with a history of atrial fibrillation, hypertension, metastatic bladder/prostate cancer, and CVA presenting from the cardiology office for atrial fibrillation. Patient was admitted in April 2024 for atrial fibrillation with RVR. He
developed R hand numbness during the hospitalization and was diagnosed with an acute CVA. Since discharge, patient has had intermittent 'episodes.' He reports constant tingling in the right fingers. During these episodes, he will experience
tingling throughout the hand which is followed by heaviness in the right arm, lightheadedness, and shortness of breath. Episodes last several minutes up to 45 minutes at a time. The 'bad' episodes occur with activity but he also has these episodes
at rest. He was seen in the ED at the end of May for A-fib. He was restarted on amiodarone at that time. He was seen today at the cardiology office and the plan initially was for outpatient cardioversion and to schedule an ablation. While
he was walking out of the office, he had 1 of these episodes. He was then advised to go to the ED for evaluation. Patient is currently feeling well. 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
Past History
<Neela Suh PA-C - Last Filed: 06/29/24 17:08>
Past History
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
ED Past Surgical History: Orthopedic (Right knee surgery, ), Urological (TURP) and Other (Cataracts)
Social History
Tobacco: Non-smoker
Alcohol: Occasional
Drug: None
Personal:
Living: alone
Employment: Retired
Family History
Family History: Other (Noncontributory)
Phy Exam
<Neela Suh PA-C - Last Filed: 06/29/24 17:08>
General Physical Exam
General Presentation: well appearing and no apparent distress
General age: appears stated age
General Skin: warm and dry
General Habitus: normal
ENT Exam
ENT Exam: normocephalic
Cardiovascular Exam
Cardiovascular Exam: no edema, normal peripheral pulses (2+ radial pulses bilaterally) and irregularly irregular
Pulmonary Exam
Pulmonary Exam: lungs clear, no respiratory distress, no rales, no crackles and no rhonchi
Neurological Exam
Neurological Exam: alert
Manfred Coma Scale
Eye Opening: Spontaneous
Verbal Response: Oriented
Motor Response: Obeys Commands
GCS Total Score: 15
Skin Exam
Skin Exam: normal color and warm/dry
Psychiatric Exam
Psychiatric Exam: normal mood/affect
Course
<Neela Suh PA-C - Last Filed: 06/29/24 17:08>
Orders/Labs/Results
Orders:
Orders
06/29/24 Breakfast
Cholesterol Lowering
At Your Request: Full Participation
06/29/24 09:06
EKG [Electrocardiogram (*1)] Urgent
Reason for Study: Atrial Fibrillation
EKG- Treatment ONCE
06/29/24 11:31
CT Head W/o Iv Contrast Urgent
Comment:
Reason For Exam: R hand tingling
Cardiac Monitoring- Treatment ONCE
CR Chest - 2 Views Urgent
Comment:
Reason For Exam: SOB
06/29/24 11:37
Complete Blood Count/With Diff Urgent
Comprehensive Metabolic Panel Urgent
Magnesium Urgent
NT-proBNP Urgent
Comment: ADD ON
TSH Reflex To Free T4 Urgent
Troponin I Urgent
06/29/24 12:16
Potassium Chloride [KCl] 40 meq PO NOW STA
06/29/24 12:43
NEUROLOGY CONSULT Routine
Consulting Provider: Siobhan Grant
Was physician already notified: Yes
Reason for consult: RUE heaviness
MR Brain Without Contrast Routine
Comment:
Reason For Exam: RUE heaviness
Recent pill cam endoscopy?: No
06/29/24 12:44
CARDIOLOGY CONSULT Routine
Consulting Provider: Aaron Ramirez
Was physician already notified: Yes
Reason for consult: symptomatic afib, lightheadedness
06/29/24 13:16
Admit/Transfer Patient As Directed
Co-Sign Provider:
Level of Care: Inpatient admission
Assign to:: Telemetry
Physician / Group: hunter
Diagnosis: CVA
Reason for Telemetry: Arrhythmia
Date to Stop Telemetry: 07/02/24
Time to Stop Telemetry: 11:00
Reason for Hospitalization: cva
Expected length of stay greater than two midnights?: Yes
ELOS- Estimated Length of Stay in days: 3
I certify the patient meets the requirements for IP care: Yes
Code Status As Directed
Resuscitation Status: Full Code
PRN Pain Medication Management As Directed
May give lesser potent ordered pain med per pt: Yes
preference::
Protocol:: Medication orders for pain may be administered in a
manner that supports deferring to patient preference
when the pt is:
- Requesting an ordered lesser potent pain medication.
Least to most potent pain medications are defined
as: acetaminophen < NSAID < tramadol < opioids
(morphine, oxycodone, hydromorphone).
- Requesting a lesser dose of the same medication IF
ORDERED.
- Requesting a less intrusive route of administration
if both routes are prescribed by the provider (PO <
IV).
06/29/24 13:27
Amiodarone [Pacerone] 200 mg PO NOW STA
Apixaban [Eliquis] 5 mg PO NOW STA
Aspirin Chewable [Low Strength Aspirin] 81 mg PO NOW STA
Ferrous Sulfate [Feosol] 325 mg PO NOW STA
Prednisone [Deltasone] 5 mg PO NOW STA
Tamsulosin [Flomax] 0.4 mg PO NOW STA
Valsartan [Diovan] 160 mg PO NOW STA
07/02/24 11:00
DC Protocol for Telemetry ONCE
Abnormal Lab Results
06/29/24
11:37
MPV 10.9 H fL
(7.4-10.4)
Abs Immat Gran (auto) 0.1 H 10^3/uL
(0-0.05)
Absolute Monos (auto) 0.7 H 10^3/uL
(0.1-0.6)
Immature Gran % 0.8 H %
(0-0.5)
Potassium 3.3 L mmol/L
(3.5-5.1)
Carbon Dioxide 20 L mmol/L
(22-30)
BUN 27 H mg/dl
(9-20)
Glucose 118 H mg/dl
(70-99)
06/29/24 11:37
06/29/24 11:37
Vital Signs
Initial and Last Documented VS:
Initial Vital Signs
Pulse Resp BP Pulse Ox
69 19 133/81 100
06/29/24 09:18 06/29/24 09:18 06/29/24 09:18 06/29/24 09:18
Last Documented Vital Signs
Temp Pulse Resp BP Pulse Ox
98 F 73 16 126/65 97
06/29/24 11:00 06/29/24 15:16 06/29/24 15:00 06/29/24 15:16 06/29/24 15:00
<Thomas Singh MD - Last Filed: 06/29/24 13:02>
Orders/Labs/Results
Orders:
Orders
06/29/24 Breakfast
Cholesterol Lowering
At Your Request: Full Participation
06/29/24 09:06
EKG [Electrocardiogram (*1)] Urgent
Reason for Study: Atrial Fibrillation
EKG- Treatment ONCE
06/29/24 11:31
CT Head W/o Iv Contrast Urgent
Comment:
Reason For Exam: R hand tingling
Cardiac Monitoring- Treatment ONCE
CR Chest - 2 Views Urgent
Comment:
Reason For Exam: SOB
06/29/24 11:37
Complete Blood Count/With Diff Urgent
Comprehensive Metabolic Panel Urgent
Magnesium Urgent
NT-proBNP Urgent
Comment: ADD ON
TSH Reflex To Free T4 Urgent
Troponin I Urgent
06/29/24 12:16
Potassium Chloride [KCl] 40 meq PO NOW STA
06/29/24 12:43
NEUROLOGY CONSULT Routine
Consulting Provider: Siobhan Grant
Was physician already notified: Yes
Reason for consult: RUE heaviness
MR Brain Without Contrast Routine
Comment:
Reason For Exam: RUE heaviness
Recent pill cam endoscopy?: No
06/29/24 12:44
CARDIOLOGY CONSULT Routine
Consulting Provider: Aaron Ramirez
Was physician already notified: Yes
Reason for consult: symptomatic afib, lightheadedness
06/29/24 13:16
Admit/Transfer Patient As Directed
Co-Sign Provider:
Level of Care: Inpatient admission
Assign to:: Telemetry
Physician / Group: hunter
Diagnosis: CVA
Reason for Telemetry: Arrhythmia
Date to Stop Telemetry: 07/02/24
Time to Stop Telemetry: 11:00
Reason for Hospitalization: cva
Expected length of stay greater than two midnights?: Yes
ELOS- Estimated Length of Stay in days: 3
I certify the patient meets the requirements for IP care: Yes
Code Status As Directed
Resuscitation Status: Full Code
PRN Pain Medication Management As Directed
May give lesser potent ordered pain med per pt: Yes
preference::
Protocol:: Medication orders for pain may be administered in a
manner that supports deferring to patient preference
when the pt is:
- Requesting an ordered lesser potent pain medication.
Least to most potent pain medications are defined
as: acetaminophen < NSAID < tramadol < opioids
(morphine, oxycodone, hydromorphone).
- Requesting a lesser dose of the same medication IF
ORDERED.
- Requesting a less intrusive route of administration
if both routes are prescribed by the provider (PO <
IV).
06/29/24 13:27
Amiodarone [Pacerone] 200 mg PO NOW STA
Apixaban [Eliquis] 5 mg PO NOW STA
Aspirin Chewable [Low Strength Aspirin] 81 mg PO NOW STA
Ferrous Sulfate [Feosol] 325 mg PO NOW STA
Prednisone [Deltasone] 5 mg PO NOW STA
Tamsulosin [Flomax] 0.4 mg PO NOW STA
Valsartan [Diovan] 160 mg PO NOW STA
07/02/24 11:00
DC Protocol for Telemetry ONCE
Abnormal Lab Results
06/29/24
11:37
MPV 10.9 H fL
(7.4-10.4)
Abs Immat Gran (auto) 0.1 H 10^3/uL
(0-0.05)
Absolute Monos (auto) 0.7 H 10^3/uL
(0.1-0.6)
Immature Gran % 0.8 H %
(0-0.5)
Potassium 3.3 L mmol/L
(3.5-5.1)
Carbon Dioxide 20 L mmol/L
(22-30)
BUN 27 H mg/dl
(9-20)
Glucose 118 H mg/dl
(70-99)
06/29/24 11:37
06/29/24 11:37
Vital Signs
Initial and Last Documented VS:
Initial Vital Signs
Pulse Resp BP Pulse Ox
69 19 133/81 100
06/29/24 09:18 06/29/24 09:18 06/29/24 09:18 06/29/24 09:18
Last Documented Vital Signs
Temp Pulse Resp BP Pulse Ox
98 F 73 16 126/65 97
06/29/24 11:00 06/29/24 15:16 06/29/24 15:00 06/29/24 15:16 06/29/24 15:00
<Neela Suh PA-C - Last Filed: 06/29/24 17:08>
MDM/Problems Addressed
Differential Diagnosis Includes:
83yoM here with intermittent episodes of R arm heaviness, SOB, and lightheadedness since April. Episodes becoming more frequent. Sent here by cardiology office. VSS. He is well appearing in no distress. He is in rate controlled afib during
initial exam. Differential diagnosis includes but is not limited to: symptomatic afib, focal seizures, TIA, ACS
Initial ED plan: Check cardiac labs, magnesium, TSH, EKG, CXR, and CT head.
<Neela Suh PA-C - Last Filed: 06/29/24 17:08>
*EKG
Interpreted by ED Provider?: Yes
EKG Intrepretation Date: 06/29/24
Heart Rate: 82
Rate: normal
Rhythm: a-fib
[place]: left axis deviation
Interval: normal interval
Ischemia: no ischemia
*Critical Care Note
Total Time (30-74mins, 75-104mins- exclusive of procedures): Not Applicable
<Neela Suh PA-C - Last Filed: 06/29/24 17:08>
Update Note
Update Note:
Potassium 3.3 which was replaced. Remainder of labs unremarkable. CT head negative for acute findings. Patient also evaluated by Dr. Singh. Will plan on admission for cardiology/neurology evaluations.
ED Attending Note
<Neela Suh PA-C - Last Filed: 06/29/24 17:08>
-
Portions of this chart may have been created with voice recognition software.� Occasional wrong word or��sound alike� substitutions may have occurred due to the inherent limitations of voice recognition software.
<Thomas Singh MD - Last Filed: 06/29/24 13:02>
ED Attending Note
Patient seen and examined by attending physician: Yes
I performed the substantive portion of visit, reviewed & personally made and approve the management plan that is documented in note by myself or ROGER.: Yes
ED Attending Note:
83-year-old male with episodes of paresthesias to the right hand along with episodes of weakness. This can be associated with lightheadedness. Has been going on since April. Getting more frequent. Last episode was today even the automotive sales representative
office.
Currently asymptomatic. No chest pain shortness of breath or other complaints.
GENERAL: Alert and oriented in no apparent distress
EYE: Orbits normal.
NECK: Supple, no significant adenopathy.
ENT: Pharynx without erythema
CARDIAC: Irregular irregular no murmur. Good upper extremity pulses. Good capillary refill.
LUNGS: Clear breath sounds,normal
ABDOMEN: Soft, without focal tenderness or distention
NEUROLOGICAL: Alert and oriented , grossly non-focal. Speech normal. Cranial nerves II through XII intact. [id number] normal. Lower extremity strength normal. Light touch intact
SKIN: Warm and dry, no rash or lesion, no discoloration, skin intact.
MUSCULOSKELETAL: No edema,no deformity.Good color
PSYCH: Normal and appropriate interaction.
Impression is episodic paresthesias and weakness to the right arm. History of CVA at this site. Doubt vascular issue. Possible focal seizure versus related to his atrial fibrillation versus TIAs. Warrants inpatient management. Previous records
and testing all reviewed.
Discharge Plan
Departure
Patient Disposition: Admit
Date of Disposition: 06/29/24
Time of Disposition: 12:38
Presentation/result/management discussed w/ accepting MD/DO: Hospitalist
Discharge Problem:
Paresthesia of right arm, Episode of dizziness
Interventions
Interventions:
*Risk Screen - Suicide Last Done: 06/29/24 09:09
*General Assessment Last Done: 06/29/24 09:09
*Neglect/Abuse Screening Last Done: 06/29/24 09:09
ED- Fall Risk Assessment Last Done: 06/29/24 13:01
ED- Cardiac Assessment Last Done: 06/29/24 13:01
ED- Pulmonary Assessment Last Done: 06/29/24 13:01
[2024-06-29 11:48] LABS: % Basophils 0.6 % (0-2); % Eosinophils 0.8 % (0-6); % Immature Granulocytes 0.8 % (0-0.5); % Lymphocytes 22.7 % (20.5-51.1); % Monocytes 8.5 % (1.7-9.3); % Neutrophils 66.6 % (42.2-75.2); Absolute Basophils 0.1 10^3/uL (0-0.2); Absolute Eosinophils 0.1 10^3/uL (0-0.7); Absolute Immature Granulocytes 0.1 10^3/uL (0-0.05); Absolute Lymphocytes 1.9 10^3/uL (1.2-3.4); Absolute Monocytes 0.7 10^3/uL (0.1-0.6); Absolute Neutrophils 5.6 10^3/uL (1.4-6.5); Hematocrit 40.1 % (39.0-52.0); Hemoglobin 13.4 g/dL (13.0-18.0); Mean Corp Hgb Conc. 33.4 g/dL (33.0-37.0); Mean Corpuscular Hgb 28.3 pg (27.0-31.0); Mean Corpuscular Volume 84.8 fL (80.0-94.0); Mean Platelet Volume 10.9 fL (7.4-10.4); Nucleated Red Blood Cells % 0 % (-); Platelet Count 187 10^3/uL (130-400); Red Blood Cell Count 4.73 10^6/uL (4.70-6.10); Red Cell Dist. Width 14.2 % (11.5-14.5); White Blood Cell Count 8.5 10^3/uL (4.8-10.8)
[2024-06-29 12:15] LABS: ALT (SGPT) 17 U/L (0-50); AST (SGOT) 17 U/L (17-59); Albumin 3.9 g/dl (3.5-5.0); Alkaline Phosphatase 67 U/L (38-126); Blood Urea Nitrogen 27 mg/dl (9-20); Calcium 9.1 mg/dl (8.4-10.2); Carbon Dioxide 20 mmol/L (22-30); Chloride 104 mmol/L (98-107); Estimated Creatinine Clearance 59 ml/min; Glucose 118 mg/dl (70-99); Magnesium 2.1 mg/dl (1.6-2.3); Potassium 3.3 mmol/L (3.5-5.1); Sodium 138 mmol/L (135-145); Total Bilirubin 0.9 mg/dl (0.2-1.3); Total Protein 6.5 g/dl (6.3-8.2); eGFR > 60.00
[2024-06-29 12:22] LABS: Troponin I 0.014 ng/ml
[2024-06-29] MEDS: KCL 40 MEQ PO (12:25)
[2024-06-29 12:42] LABS: TSH Reflex To Free T4 3.24 uIU/ml (0.47-4.68)
--- NOTE | 2024-06-29 12:53 | HPS.HSE ---
Family Physician
-
Family Physician: Masoud Hancock
Chief Complaint
-
right fingr tingling
History of Present Illness
83yoM with a history of atrial fibrillation, hypertension, metastatic bladder/prostate cancer, and CVA presenting from the cardiology office for with right fingers tingling, right arm heaviness, dizzy. Patient was admitted in April 2024 for
atrial fibrillation with RVR. He developed R hand numbness during the hospitalization and was diagnosed with an acute CVA. Since discharge, patient has had intermittent 'episodes of right fingers tingling, right arm heaviness and dizzy which lasts
from five minutes to 45 minutes. prior to the symptoms, he gets pale. stated sob with exertion. denied LUU, sob. denied fever, chills, congestion, cough. denied chest pain., denied abdominal pain,n,v,d. denied dysuria or hematuria. He was seen today
at the cardiology office and the plan initially was for outpatient cardioversion and to schedule an ablation. While he was walking out of the office, he had 1 of these episodes which lasted for five minutes. \\
admitting for further management.
Medical History
Past Medical History
Past Medical History: Reports Other
Additional Past Medical History:
Hypertension
Bladder cancer
Peripheral vascular disease
GERD
A-fib
Hyperlipidemia
Depression
Prostate cancer mets to the bones
Past Surgical History: Reports None
Social History
Tobacco: Non-smoker
Alcohol: Occasional
Drug: None
Living: Alone
Employment: Not Employed
Family History
Family History: Not pertinent
Allergies / Home Medications
Allergies reflects when Allergies were last updated in [employer].
Home Medications with original date entered in [employer]
Allergy/Medication List:
Allergies
Allergy/AdvReac Type Severity Reaction Status Date / Time
poison altaf extract Allergy Rash Verified 06/29/24 11:00
Home Medications
tamsulosin 0.4 mg capsule (Flomax) 0.4 mg PO BID Urinary issue 03/29/14
abiraterone 500 mg tablet 1,000 mg PO DAILY Cancer 01/31/23
prednisone 5 mg tablet 5 mg PO DAILY Anti-Inflammatory 01/31/23
sertraline 50 mg tablet 50 mg PO HS Depression 01/31/23
apixaban 5 mg tablet (Eliquis) 5 mg PO BID Blood Clot Prevention/Tx 05/09/24
calcium 600 mg (as carbonate)-vitamin D3 10 mcg (400 unit) tablet (Calcium 600 + D(3)) 1 tab PO HS Supplement 05/09/24
valsartan 160 mg tablet 160 mg PO BID Blood Pressure 05/09/24
amiodarone 200 mg tablet 200 mg PO BID #28 tabs 05/12/24
aspirin 81 mg chewable tablet 81 mg PO DAILY #30 tabs 05/12/24
atorvastatin 40 mg tablet 40 mg PO QPM #30 tabs 05/12/24
metoprolol succinate 25 mg tablet,extended release 24 hr 25 mg PO BID #60 tabs 05/12/24
nitroglycerin 0.3 mg sublingual tablet 0.3 mg sublingual Q5-15M PRN chest pain #30 tabs 05/12/24
Review of Systems
-
Constitutional: Reports No Symptoms
EENT: Reports No Symptoms
Respiratory: Reports Trouble Breathing
Cardiac: Reports No Symptoms
Abdomen/GI: Reports No Symptoms
: Reports No Symptoms
Musculoskeletal: Reports No Symptoms
Skin: Reports No Symptoms
Neurological: Reports Dizzy, Weakness and Numbness (right arm heaviness, tingling, numbness)
Endocrine: Reports No Symptoms
Hematologic/Lymphatic: Reports No Symptoms
Psych: Reports No Symptoms
Physical Exam
Vital Signs
Vital Signs
Temp Pulse Resp BP Pulse Ox
98 F 69 15 157/70 98
06/29/24 11:00 06/29/24 12:27 06/29/24 12:27 06/29/24 12:26 06/29/24 12:27
Physical Exam
General: Well Developed, Well Nourished and No Apparent Distress
HEENT: NormoCephalic, Moist mucous membranes and Atraumatic
Respiratory: Clear
Cardiac: S1/S2 and Regular Rhythm; No Murmur or Rub
GI: Soft, Non Tender, Non Distended and Normal Bowel Sounds; No Organomegaly
Rectal: Deferred by Provider
Musculoskeletal: No Clubbing, No Cyanosis and No Edema
Skin: No Rash
Neuro: AO x 3 and Nonfocal/grossly intact
Psych: Calm
Laboratory Results
-
06/29/24 11:37
06/29/24 11:37
Laboratory Results
Total Bilirubin 0.9 mg/dl (0.2-1.3) 06/29/24 11:37
AST 17 U/L (17-59) 06/29/24 11:37
ALT 17 U/L (0-50) 06/29/24 11:37
Alkaline Phosphatase 67 U/L (38-126) 06/29/24 11:37
Troponin I 0.014 ng/ml 06/29/24 11:37
Data Reviewed
-
CT Scan: Report Reviewed by me
Lab Data: Labs Reviewed by me
Impression/Plan
-
# Right hand tingling/heaviness, lightheadedness rule out acute CVA/ atrial fib
-CT head negative for acute finding
-EKG with A-fib
-obtain MRI
-obtain a1c,lipid profile
-statin continued
-asa continued
# Short of breath
-Chest x-ray pending
-oxygenating very well on RA
-No acute disease of the chest.Findings consistent with mild osseous metastatic disease. Known. Grossly stable
#atrial fib
-HR controlled
-cardiology consulted
-amiodarone continued
-eliquis continued
-metoprolol continued
#BPH
-flomax
#essential HTN
-valsartan continued
# Hypokalemia
-K3.3
-kcl in ER
#Metastatic Bladder/Prostate Cancer with Bony Mets
-Continue prednisone
-Patient maintained on abiraterone as outpatient
#Depression
-Continue sertraline
#DVT proph: Eliquis
#Code Status: Full Code
--- NOTE | 2024-06-29 13:53 | CON.NEURO ---
Consultation
Order
Date of Consultation: 06/29/24
Requesting Provider: Osmany Lisa MD
Reason for Consult: Right upper extremity heaviness
Neurology Consultation Note.
HPI: This is an 83-year-old right-handed man who was referred from cardiology office to [facility] on 06/29/2024 for an evaluation of dizziness. Neurology consultation was requested for an evaluation and management of sensory symptoms.
The patient endorses ongoing fluctuating numbness in his right hand mostly in the first 3 digits radiating into the forearm with associated intermittent hand weakness. These symptoms have been present since the patient's last hospitalization in
April 2024, during which he was diagnosed with A Fib as well as the left thalamic stoke. No reports of radicular neck pain, dysarthria, change in vision or strength.
According to the patient he has had intermittent episodes of nonpositional dizziness described as lightheadedness and vertigo with associated skin paleness, imbalance.
Mr. Fernández reportedly had a lapse in taking Amiodarone for two weeks due to a prescription error. The patient's symptoms persisted even after resuming the medication.
ER VS: 133/81, 79, afebrile
EKG: A-Fib
PDMP:none
Labs: Potassium�3.3, glucose�118, normal magnesium, calcium.
CT head wo contrast-moderate periventricular hypodensities and atrophy
PMH: Afib, HTN, DLP, stage IV prostate cancer, bladder CA, MDD, GERD, BPH, TORI, BMI 33
PSH:TURP, right knee surgery, bilateral cataract surgery, cardioversion (03/2024)
SH: lives alone, independent in [place]
All:NKDA
Constitutional: Negative. Negative for chills, fever and unexpected weight change.
HENT: Positive for hearing impairment, intermittent tinnitus
Eyes: Negative. Negative for photophobia, pain and visual disturbance.
Respiratory: Negative for cough, choking and shortness of breath.
Cardiovascular: Negative for chest pain, palpitations and leg swelling.
Gastrointestinal: Negative for abdominal pain and vomiting.
Endocrine: Negative. Negative for cold intolerance.
Musculoskeletal: Negative for back pain, gait problem, neck pain and neck stiffness.
Skin: Negative for rash.
Allergic/Immunologic: Negative. Negative for immunocompromised state.
Neurological: Positive for imbalance, right hand numbness and weakness, intermittent dizziness
Psychiatric/Behavioral: Negative for behavioral problems, confusion and hallucinations.
General: Well developed. In no acute distress.
Cardio: Regular rate and rhythm without murmur. Extremities are without cyanosis or edema.
Neuro:
Mental Status: Alert, oriented to person, place, and date. Increased processing time. Follows complex requests. Comprehension, naming, and repetition intact.
Cranial Nerves: Pupils are equally round and reactive to light. EOMs full. Visual forbes full to confrontation. No ptosis. No nystagmus. V1-V3 intact to light touch and pinprick bilaterally, symmetric. Face symmetric. Impaired hearing AU.
The palate elevated well. SCMs and traps 5/5. Tongue midline. No dysarthria.
Motor: R APB atrophy, no pronator or arm drift. Strength 5/5 throughout, except for R APB weakness. No clonus.
Sensory: Reduced light touch in the right palmar distal 1�3 digits with thenar sparing. Normal vibration at the toes.
Gait: deferred
Assessment and Plan:
I. Subacute left thalamic infarct.
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
III. PA A-Fib
IV. Stage IV prostate CA. Abiraterone is associated with an increased risk of stroke
-Please obtain orthostatic vital signs
-Nocturnal wrist splints for 6-8 weeks
-Avoid repetitive movements
-Continue Eliquis 5 mg BID for secondary stroke prophylaxis
-Outpatient NCS/EMG of BL UEs
-Cardiology follow-up
-PT/OT(nerve gliding exercises)
-Please recall neurology services any questions or concerns
I personally reviewed all radiology and labs along with past medical records pertinent to current medical problems. Total time spent in patient care is 60 minutes.
Thank you for allowing us to participate in the care of this patient. Please do not hesitate to contact us with any questions or concerns.
Subjective/Objective
Subjective Data
Date of Service: June 29, 2024
Objective Data
Vital Signs
Temp Pulse Resp BP Pulse Ox
36.6 C 69 16 157/70 98
06/29/24 11:00 06/29/24 12:27 06/29/24 13:00 06/29/24 12:26 06/29/24 13:01
Lab Results
06/29/24 11:37
06/29/24 11:37
Sodium 138 mmol/L (135-145) 06/29/24 11:37
Potassium 3.3 mmol/L (3.5-5.1) L 06/29/24 11:37
BUN 27 mg/dl (9-20) H 06/29/24 11:37
Glucose 118 mg/dl (70-99) H 06/29/24 11:37
Calcium 9.1 mg/dl (8.4-10.2) 06/29/24 11:37
Patient Allergies
poison altaf extract Allergy (Verified 06/29/24 11:00)
Rash
Medications
-
Active Medications
Generic Name Dose Route Start Last Admin
Trade Name Freq PRN Reason Stop Dose Admin
Amiodarone HCl 200 mg 06/29/24 13:27
Amiodarone 200 Mg Tablet PO 06/29/24 13:28
NOW STA
Apixaban 5 mg 06/29/24 13:27
Apixaban (Eliquis) 5 Mg Tablet PO 06/29/24 13:28
NOW STA
Aspirin 81 mg 06/29/24 13:27
Aspirin 81 Mg Chewable Tablet PO 06/29/24 13:28
NOW STA
Ferrous Sulfate 325 mg 06/29/24 13:27
Ferrous Sulfate 325 Mg Tablet PO 06/29/24 13:28
NOW STA
Prednisone 5 mg 06/29/24 13:27
Prednisone 5 Mg Tablet PO 06/29/24 13:28
NOW STA
Tamsulosin HCl 0.4 mg 06/29/24 13:27
Tamsulosin 0.4 Mg Capsule PO 06/29/24 13:28
NOW STA
Valsartan 160 mg 06/29/24 13:27
Valsartan 160 Mg Tablet PO 06/29/24 13:28
NOW STA
Home Medications
�Medication �Instructions �Recorded
tamsulosin 0.4 mg capsule (Flomax) 0.4 mg PO BID Urinary issue 03/29/14
abiraterone 500 mg tablet 1,000 mg PO DAILY Cancer 01/31/23
prednisone 5 mg tablet 5 mg PO DAILY Anti-Inflammatory 01/31/23
sertraline 50 mg tablet 25 mg PO HS Depression 01/31/23
calcium 600 mg (as 1 tab PO HS Supplement 05/09/24
carbonate)-vitamin D3 10 mcg (400
unit) tablet (Calcium 600 + D(3))
valsartan 160 mg tablet 160 mg PO BID Blood Pressure 05/09/24
aspirin 81 mg chewable tablet 81 mg PO DAILY #30 tabs 05/12/24
metoprolol succinate 25 mg 25 mg PO BID #60 tabs 05/12/24
tablet,extended release 24 hr
amiodarone 200 mg tablet 200 mg PO DAILY 06/29/24
apixaban 5 mg tablet (Eliquis) 5 mg PO BID 06/29/24
ferrous sulfate 325 mg (65 mg 325 mg PO DAILY 06/29/24
iron) tablet
nitroglycerin 0.3 mg sublingual 0.3 mg sublingual [id number] PRN 06/29/24
tablet chest pain
Vital Signs and Labs
-
Vital Signs and Labs:
Vital Signs
Temp Pulse Resp BP Pulse Ox
36.6 C 69 16 157/70 98
06/29/24 11:00 06/29/24 12:27 06/29/24 13:00 06/29/24 12:26 06/29/24 13:01
Lab Results
06/29/24 11:37
06/29/24 11:37
Sodium 138 mmol/L (135-145) 06/29/24 11:37
Potassium 3.3 mmol/L (3.5-5.1) L 06/29/24 11:37
BUN 27 mg/dl (9-20) H 06/29/24 11:37
Glucose 118 mg/dl (70-99) H 06/29/24 11:37
Calcium 9.1 mg/dl (8.4-10.2) 06/29/24 11:37
Medications
-
Medications:
Generic Name Dose Route Start Last Admin
Trade Name Freq PRN Reason Stop Dose Admin
Sodium Chloride 0 flush 06/29/24 15:00
Sodium Chloride 0.9% (Flush) Syringe IV 07/27/24 14:59
PER PROTOCOL GONZALEZ
Home Medications
-
Home Medications
tamsulosin 0.4 mg capsule (Flomax) 0.4 mg PO BID Urinary issue 03/29/14
abiraterone 500 mg tablet 1,000 mg PO DAILY Cancer 01/31/23
prednisone 5 mg tablet 5 mg PO DAILY Anti-Inflammatory 01/31/23
sertraline 50 mg tablet 25 mg PO HS Depression 01/31/23
calcium 600 mg (as carbonate)-vitamin D3 10 mcg (400 unit) tablet (Calcium 600 + D(3)) 1 tab PO HS Supplement 05/09/24
valsartan 160 mg tablet 160 mg PO BID Blood Pressure 05/09/24
aspirin 81 mg chewable tablet 81 mg PO DAILY #30 tabs 05/12/24
metoprolol succinate 25 mg tablet,extended release 24 hr 25 mg PO BID #60 tabs 05/12/24
amiodarone 200 mg tablet 200 mg PO DAILY 06/29/24
apixaban 5 mg tablet (Eliquis) 5 mg PO BID 06/29/24
ferrous sulfate 325 mg (65 mg iron) tablet 325 mg PO DAILY 06/29/24
nitroglycerin 0.3 mg sublingual tablet 0.3 mg sublingual [id number] PRN chest pain 06/29/24
--- NOTE | 2024-06-29 14:09 | W.PN.UPDATE ---
Update Note
Progress Note Update
This is an addendum to the H&P written by Dilcia Thao on 06/29/2024.� Patient seen and examined independently with FIREWOOD CUTTER.
83-year-old male past medical history of paroxysmal atrial fibrillation with prior cardioversion, CVA, hypertension, metastatic bladder/prostate cancer with bony mets, depression, presenting with episodic episodes of right finger tingling, heaviness
in right arm, shortness of breath, lightheadedness which can last a few minutes up to 45 minutes at a time.
He saw her oiler and greaser today and was plan for outpatient cardioversion/ablation.� He had an episode while walking out of the office and was recommended to come to the emergency room.
No symptoms currently.� Patient's vitals are unremarkable.� EKG showed atrial fibrillation but rate controlled.
Unclear etiology of symptoms.� Symptoms could be related to symptomatic atrial fibrillation, TIA less likely.� Continue Eliquis.� Check MRI brain.� Neurology consulted.� Cardiology consulted.
--- NOTE | 2024-06-29 14:33 | W.PN.CARDCBS ---
Today's Communication / Plan
-
follow on tele
neuro work up including brain MRI
PT/OT/ortho VS
continue amio, toprol, eliquis
consider for CV
consider for likely OP PET/CT stress test
Impression / Plan
-
Please refer to office note dated 06/29/24
Primary Paper Bag Inspector: Dr. Bye
Assessment:
Presentation with RUE numbness/tingling
DASH
Dizziness
Persistent atrial fibrillation
Chronic anticoagulation with Eliquis
CVA 04/2024
ER visit 04/17/2024 for atrial fibrillation, lightheadedness status post successful cardioversion
History of suspected stroke
Hypertension
Hypercholesterolemia
History of bladder cancer status post surgical removal
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
Depression
Recent thyroid biopsies 04/26/24
Lexiscan nuclear stress test 07/20/22: Predominantly fixed defect in basal inferolateral, mid inferior lateral and apex segments consistent with infarction with residual ischemia versus STA, EF 52%
Echo 02/01/2023: EF 55 to 60%, trace MR, mild with peak/mean gradients 19/10 mmHg, mild TR, PAP 30 to 35 mmHg
ECHO 05/10/24: EF 55%, mild concentric LVH, mild MR, moderate with peak/mean gradients 40/22 mmHg, RILEY 1.3 cm�, mild TR, PAP 30 to 35 mmHg
Plan:
-Patient is an 83-year-old male with a history of prostate cancer with mets to bone with ongoing hormone and chemotherapy, oncologist Dr. Ferreira, history of stroke, ER visit for A-fib 04/17/2024 resulting in successful cardioversion with subsequent
recurrence. He had admission for chest pain with peak trop 0.034 and echo with preserved EF and mild MR/mod then had stroke alert with left thalamic CVA by brain MRI so ischemic evaluation was deferred. Pain was felt to possibly be due to bony
mets. He was supposed to be seen in cardiology office 05/15/24 however appt was cancelled. He then called office 06/12/24 reporting afib and dizziness and was referred to ER. It was noted he had not been taking his amiodarone so 200mg daily was
restarted and he was discharged from ER with cardiac follow up scheduled 06/29/24. He was seen in office today and reports since discharge post CVA having episodes of R arm numbness/tingling with associated dizziness and dyspnea. Daughter at bedside
reports during episodes he is 'white as a ghost.' No CP. He had episode while in waiting room of office and was referred to ER. He has not yet seen neurology in follow up post admission 04/2024 for CVA. He is in rate controlled afib both in office
today and in ER. He denies noting correlation of episodes with exertion, movement, eating, medications, etc.
-unclear etiology of 'episodes' as described above
-for neuro evaluation. head CT without acute abnormalities noted. for brain MRI
-trends trops, initial 0.014
-would consider follow up echo study, last from 04/2024 as above
-in rate controlled afib, which appears persistent since at least 06/12/24. continue amiodarone, toprol, eliquis. he reports no missed eliquis doses as OP
-PT/OT evaluation
-check ortho VS
-check proBNP
-consider for OP PET/CT stress testing
-could consider for CV prior to DC vs as OP pending neuro eval, however do not think episodes are from afib
-d/w hospitalist MEAT SALES AND STORAGE MANAGER
-d/w patient and daughter at bedside
Progress Note - Paper Bag Inspector
Subjective
Date of Service: June 29, 2024
as in impression/plan
Objective
Labs:
06/29/24 11:37
06/29/24 11:37
Labs
Hgb 13.4 g/dL (13.0-18.0) 06/29/24 11:37
Hct 40.1 % (39.0-52.0) 06/29/24 11:37
Plt Count 187 10^3/uL (130-400) 06/29/24 11:37
Sodium 138 mmol/L (135-145) 06/29/24 11:37
Potassium 3.3 mmol/L (3.5-5.1) L 06/29/24 11:37
BUN 27 mg/dl (9-20) H 06/29/24 11:37
Creatinine 1.1 mg/dL (0.7-1.3) 06/29/24 11:37
Glucose 118 mg/dl (70-99) H 06/29/24 11:37
Troponins
06/29/24
11:37
Troponin I 0.014
Vital Signs and I&O:
Vital Signs
Temp Pulse Resp BP Pulse Ox
98 F 69 16 157/70 98
06/29/24 11:00 06/29/24 12:27 06/29/24 13:00 06/29/24 12:26 06/29/24 13:01
Vital Signs
Temp Pulse Resp BP Pulse Ox
98 F 69 16 157/70 98
06/29/24 11:00 06/29/24 12:27 06/29/24 13:00 06/29/24 12:26 06/29/24 13:01
Physical Exam
Physical Exam
GEN: No distress, awake, alert, oriented x3
HEENT: supple, anicteric, mmm, eomi
LUNGS: CTA B/L, no wheezes
CV: Irreg, S1/S2, 1/6 syst LSB
ABD: soft, BS+, NT/ND
EXT: No cyanosis, clubbing, edema
NEURO: Gross non-focal
SKIN: Warm, pink, dry. No rash
[2024-06-29] MEDS: FEOSOL 325 MG PO (15:16)
[2024-06-29] MEDS: DIOVAN 160 MG PO ×2 (15:16→20:10)
[2024-06-29] MEDS: ELIQUIS 5 MG PO ×2 (15:16→20:10)
[2024-06-29] MEDS: PACERONE 200 MG PO (15:16)
[2024-06-29] MEDS: LOW STRENGTH ASPIRIN 81 MG PO (15:16)
[2024-06-29] MEDS: FLOMAX 0.4 MG PO ×2 (15:16→20:10)
[2024-06-29] MEDS: DELTASONE 5 MG PO (15:16)
[2024-06-29 15:17] LABS: NT-proBNP 2680 pg/ml
[2024-06-29] MEDS: FLUSH (NSS) 1 FLUSH IV (15:17)
[2024-06-29] MEDS: TOPROL XL 25 MG PO (20:11)
[2024-06-29] MEDS: ZOLOFT 25 MG PO (22:04)
[2024-06-30] VITALS (12 sets, daily range): BP systolic 99–165; BP diastolic 47–80; PULSE 55–58; O2SAT 99; BMI 32.9
[2024-06-30 01:29] LABS: Troponin I 0.015 ng/ml
[2024-06-30 08:58] LABS: Troponin I 0.018 ng/ml
[2024-06-30 09:12] LABS: Blood Urea Nitrogen 30 mg/dl (9-20); Calcium 8.3 mg/dl (8.4-10.2); Carbon Dioxide 22 mmol/L (22-30); Chloride 106 mmol/L (98-107); Estimated Creatinine Clearance 64 ml/min; Glucose 112 mg/dl (70-99); HDL Cholesterol 33 mg/dl; LDL Cholesterol, Calculated 107 mg/dl; Potassium 4.1 mmol/L (3.5-5.1); Sodium 139 mmol/L (135-145); Total Cholesterol 186 mg/dl (50-199); Triglyceride 232 mg/dl (10-149); Very Low Density Lipoprotein 46 mg/dl (0-30); eGFR > 60.00
[2024-06-30] MEDS: TOPROL XL 25 MG PO (10:09)
[2024-06-30] MEDS: FLOMAX 0.4 MG PO ×2 (10:10→20:02)
[2024-06-30] MEDS: DIOVAN 160 MG PO (10:10)
[2024-06-30] MEDS: DELTASONE 5 MG PO (10:10)
[2024-06-30] MEDS: LOW STRENGTH ASPIRIN 81 MG PO (10:11)
[2024-06-30] MEDS: PACERONE 200 MG PO (10:11)
[2024-06-30] MEDS: ELIQUIS 5 MG PO ×2 (10:11→20:02)
[2024-06-30] MEDS: FEOSOL 325 MG PO (10:12)
[2024-06-30 12:14] LABS: Glycohemoglobin (HgbA1c) 6.4 % (4.0-5.6)
--- NOTE | 2024-06-30 13:57 | PTOTSP ---
FINANCIAL SPECIALIST Evaluations
Oral/pharyngeal swallowing WFL. No penetration/aspiration observed.
Speech/language WFL at the conversation level for auditory comprehension and verbal expression.
MOCA Version 8.1 [place]ian = (26 or greater is 'normal) concerning for mild cognitive changes in areas of visual/executive function and memory. Patient with multiple chronic infarcts on MRI Brain 07/01.
Recommend:
1. Regular, Thin
2. Medications as best tolerated
3. Outpatient cognitive linguistic evaluation and therapy
--- NOTE | 2024-06-30 15:51 | CM ---
Initial assessment. Pt had prev admission April 2024. Admitted for right finger tingling.
Pt lives alone in a 2ST[place]- 1 step to enter the home
Pt prev reported he has a walker that he does not use. Now uses a cane to ambulate. No other DME identified for daily functioning.
Denies SNF/VN/PT hx
Address, point of contact and insurance verified
PCP: Dr. Momin
Pharmacy: [facility]
PT/OT evaluated pt. At this time, no rehab needs have been identified, currently being recommended for home PT at d/c.
Plan: Home w/ HH if agreeable
--- NOTE | 2024-06-30 15:59 | W.PN.CARDCBS ---
Addendum entered and electronically signed by Shashi Chambers MD 06/30/24 17:51:
83-year-old man admitted with right upper extremity paresthesias, background history of persistent atrial fibrillation, stroke April 2024, hypertension, hypercholesterolemia, prostate cancer with bony mets, depression
Current meds: Amiodarone 200 mg a day, apixaban 5 mg twice daily, aspirin 81 mg a day, metoprolol ER 25 mg twice daily, prednisone 5 mg a day, sertraline 25 mg at bedtime, tamsulosin, and valsartan 160 mg daily
130/54, pulse 48, weight is 100.9 kg, lungs are clear, systolic murmur, extrasystoles, abdomen obese, trace to 1+ edema
MRI: No acute infarction, multiple small ischemic infarcts, bihemispheric, cerebellar, brainstem, leukoaraiosis, cerebral and cerebellar volume loss, chronic microhemorrhage
Echocardiogram today, EF 55%, mild to moderate aortic stenosis, mild TR, mild mitral regurgitation
BUN and creatinine are 30 & 1.0, potassium is 4.1, troponin is detectable at 0.018, proBNP is 2680
ECG rhythm appears to be marked sinus bradycardia with PACs, prolonged QT
Impression: See below
Plan:
Surprisingly, he has converted to sinus rhythm with PACs. He is bradycardic on amiodarone and metoprolol. Will stop metoprolol and observe overnight to ascertain he does not have significant bradycardia. It is conceivable that episodes of
lightheadedness and possibly dyspnea could relate to bradycardia, postconversion pauses, etc. He will need an outpatient monitor that we can facilitate next week.
Continue anticoagulation.
His right upper extremity symptoms are presumably neuropathic, either peripheral or the result of his prior CVAs. Symptoms are unlikely to be cardiac in nature.
Would not object to discharge tomorrow if rhythm overnight is stable. Plan would be for amiodarone 200 mg a day, apixaban 5 mg twice daily, would probably stop aspirin unless indicated neurologically, and continue valsartan 160 twice daily if blood
pressure remains stable. We will arrange for cardiac follow-up.
Original Note:
Today's Communication / Plan
-
Consider outpatient monitor to assess A-fib burden
Outpatient evaluation with electrophysiology to discuss A-fib ablation
Continue Eliquis, amiodarone, Toprol and valsartan
Impression / Plan
-
Please refer to office note dated 06/29/24
Primary Accounting Manager Cpa: Dr. Bey
Assessment:
Presentation 06/29/2024 with RUE numbness/tingling
DASH
Dizziness
Persistent atrial fibrillation
Chronic anticoagulation with Eliquis
CVA 04/2024
ER visit 04/17/2024 for atrial fibrillation, lightheadedness status post successful cardioversion
History of bihemispheric strokes
Hypertension
Hypercholesterolemia
History of bladder cancer status post surgical removal
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
Depression
Recent thyroid biopsies 04/26/24
PET/CT stress test 06/06/2024: Normal perfusion imaging with no scar or ischemia.
Lexiscan nuclear stress test 07/20/22: Predominantly fixed defect in basal inferolateral, mid inferior lateral and apex segments consistent with infarction with residual ischemia versus STA, EF 52%
Echo 02/01/2023: EF 55 to 60%, trace MR, mild with peak/mean gradients 19/10 mmHg, mild TR, PAP 30 to 35 mmHg
ECHO 05/10/24: EF 55%, mild concentric LVH, mild MR, moderate with peak/mean gradients 40/22 mmHg, RILEY 1.3 cm�, mild TR, PAP 30 to 35 mmHg
Echo 06/30/2024: EF 55%. Mild concentric LVH. Mild MR, mild TR with PAP 40 to 45 mmHg. Mild to moderate with peak/mean gradient 21/12 mmHg with RILEY 0.2 cm�
Plan:
-Presented 06/29/2024 with right upper extremity numbness/tingling and dizziness. Head CT without acute abnormalities noted.
-MRI brain completed 06/30/2024 shows no acute infarct. There are multiple small chronic ischemic infarcts in both anterior and posterior intracranial circulations which are likely the result of chronic embolic disease (right frontal lobe, left
thalamus, cheryl, and right cerebellar hemisphere.
-Would continue anticoagulation with Eliquis.
-Does not appear that right upper extremity numbness weakness are cardiac related. Could consider cervical spinal issues as a cause. Defer to neurology and primary service
-Presented in rate controlled afib. Appears to be in sinus rhythm with frequent PACs currently on telemetry as of 06/30/2024. will repeat EKG.
-Heart rates are bradycardic at times. I do not think this would allow for up titration of his medication. Could consider increasing amiodarone to 200 mg twice a day and reducing Toprol to 25 mg once a day in an effort to help maintain sinus
rhythm.
-Continue amiodarone, Toprol, Eliquis.
-Discussed with patient and his daughter he would probably benefit from EP evaluation and ablation. This can be arranged as outpatient.
-Given ongoing dizziness and lightheadedness also discussed he would benefit from having patient wear an outpatient monitor to see if we could correlate his dizziness with an arrhythmia.
-Repeat follow-up echo 06/30/2024 with EF of 55% with mild to moderate MS, mild TR. Aortic gradients improved on this echo compared to prior and April 2024
-Troponin negative x 3. OP PET/CT stress testing May 2024 without evidence of myocardial ischemia or scar. No further workup warranted.
-Appreciate PT/OT and speech evaluation. Passed swallowing eval. PT OT recommending outpatient/home physical therapy to improve balance and strength.
-Lipids TC 186, HDL 33, LDL 107, triglycerides 232. Given history of strokes and LDL greater than 70 would consider initiation of statin therapy
I spent 51 minutes with patient and his daughter in the room reviewing above studies rationale, treatment plan and decision as well as coordinating with Dr. Lujan hospitalist and nursing and documentation
HPI 06/29/2024:
Patient is an 83-year-old male with a history of prostate cancer with mets to bone with ongoing hormone and chemotherapy, oncologist Dr. Ferreira, history of stroke, ER visit for A-fib 04/17/2024 resulting in successful cardioversion with subsequent
recurrence. He had admission for chest pain with peak trop 0.034 and echo with preserved EF and mild MR/mod then had stroke alert with left thalamic CVA by brain MRI so ischemic evaluation was deferred. Pain was felt to possibly be due to bony
mets. He was supposed to be seen in cardiology office 05/15/24 however appt was cancelled. He then called office 06/12/24 reporting afib and dizziness and was referred to ER. It was noted he had not been taking his amiodarone so 200mg daily was
restarted and he was discharged from ER with cardiac follow up scheduled 06/29/24. He was seen in office today and reports since discharge post CVA having episodes of R arm numbness/tingling with associated dizziness and dyspnea. Daughter at bedside
reports during episodes he is 'white as a ghost.' No CP. He had episode while in waiting room of office and was referred to ER. He has not yet seen neurology in follow up post admission 04/2024 for CVA. He is in rate controlled afib both in office
today and in ER. He denies noting correlation of episodes with exertion, movement, eating, medications, etc.
Progress Note - Accounting Manager Cpa
Subjective
Date of service: June 30, 2024
Patient seen and examined. Patient's daughter at bedside. Patient still having intermittent episodes of right arm numbness tingling and dizziness.
Objective
Labs:
06/29/24 11:37
06/30/24 06:41
Labs
Hgb 13.4 g/dL (13.0-18.0) 06/29/24 11:37
Hct 40.1 % (39.0-52.0) 06/29/24 11:37
Plt Count 187 10^3/uL (130-400) 06/29/24 11:37
Sodium 139 mmol/L (135-145) 06/30/24 06:41
Potassium 4.1 mmol/L (3.5-5.1) 06/30/24 06:41
BUN 30 mg/dl (9-20) H 06/30/24 06:41
Creatinine 1.0 mg/dL (0.7-1.3) 06/30/24 06:41
Glucose 112 mg/dl (70-99) H 06/30/24 06:41
Troponins
06/29/24 06/30/24 06/30/24
11:37 00:58 06:00
Troponin I 0.014 0.015 Cancelled
06/30/24
06:41
Troponin I 0.018
Vital Signs and I&O:
Vital Signs
Temp Pulse Resp BP Pulse Ox
98.4 F 48 16 130/54 100
06/30/24 11:00 06/30/24 11:00 06/30/24 11:00 06/30/24 11:00 06/30/24 11:00
Vital Signs
Temp Pulse Resp BP Pulse Ox
98.4 F 48 16 130/54 100
06/30/24 11:00 06/30/24 11:00 06/30/24 11:00 06/30/24 11:00 06/30/24 11:00
Intake & Output
06/28/24 06/29/24 06/30/24 07/01/24
06:59 06:59 06:59 06:59
Output Total 450 / 450
Balance -450 / -450
Physical Exam
Physical Exam
GEN: No distress, awake, Ox3, lying in bed
HEENT: supple, anicteric, mmm
LUNGS: CTA, no wheezes/rales
CV: Reg, S1/S2, 1/6 syst murmur
ABD: soft, BS+, NT/ND
EXT: No edema, clubbing or cyanosis
NEURO: Gross non-focal
SKIN: No rash warm, dry, pink
--- NOTE | 2024-06-30 18:22 | PTCARENOTE ---
patient refused washing Rn notified, Daughter could not convince patient to wash.
--- NOTE | 2024-06-30 18:49 | W.PN.HOSP.TC ---
Today's Communication/Plan
-
monitor overnight
Assessment / Plan
Assessment / Plan
# Right hand tingling/heaviness, lightheadedness rule out acute CVA/ atrial fib
-CT head negative for acute finding
-EKG with A-fib
- MRI:1. No MRI evidence for acute infarct.
2. MULTIPLE SMALL CHRONIC ISCHEMIC INFARCTS in both the anterior and posterior intracranial circulations which are likely the result of chronic embolic disease (right frontal lobe, left thalamus, cheryl, and right cerebellar hemisphere).
3. Moderate diffuse cerebral and cerebellar volume loss.
4. Moderate white matter leukoaraiosis in the frontal and parietal lobes.
5. Tiny chronic intraparenchymal microhemorrhage in the left cerebellum.
-obtain a1c 6.4%
-statin continued
-asa continued
# Short of breath
-Chest x-ray pending
-oxygenating very well on RA
-No acute disease of the chest.Findings consistent with mild osseous metastatic disease. Known. Grossly stable
# Rt hand paresthesia with sparing of pinky, consistent with Carpal Tunnel Syndrome
#atrial fib
-HR controlled
-cardiology consulted
-amiodarone continued
-eliquis continued
-metoprolol continued
on monitor appears pt is in NSR with PAC's
#BPH
-flomax
#essential HTN
-valsartan continued
# Hypokalemia
-K3.3-->4.1
-kcl in ER
#Metastatic Bladder/Prostate Cancer with Bony Mets
-Continue prednisone
-Patient maintained on abiraterone as outpatient
#Depression
-Continue sertraline
#DVT proph: Eliquis
#Code Status: Full Code
Anticipated Discharge: 24 - 48 hours
Subjective/Interval History
-
Date of Service: June 30, 2024
Pt relates that he does not believe he is getting answers to what is happening with him
Objective Data
-
Labs:
Laboratory Results
06/30/24
06:41
Sodium 139
Potassium 4.1
Chloride 106
Carbon Dioxide 22
BUN 30 H
Creatinine 1.0
Glucose 112 H
Calcium 8.3 L
Vital Signs:
Vital Signs
Temp Pulse Resp BP Pulse Ox
97.5 F 50 18 99/47 94
06/30/24 15:00 06/30/24 15:00 06/30/24 15:00 06/30/24 15:00 06/30/24 15:00
I&O
06/29/24 06/30/24 07/01/24
06:59 06:59 06:59
Intake Total 960 / 960
Output Total 450 / 450
Balance 510 / 510
Review of Systems
-
History Source: Patient and Family (get Roberto in room)
Constitutional: Denies Fever
Respiratory: Reports No Symptoms
Cardiac: Reports No Symptoms; Denies Chest Pain
Genitourinary: Reports No Symptoms
Physical Exam
-
General: Well Developed, Well Nourished and No Apparent Distress
HEENT: Normocephalic, Atraumatic and Moist Mucous Membranes
Respiratory: Clear to Auscultation; Negative Wheezes, Rales or Rhonchi
Cardiac: Regular Rhythm and S1/S2
GI: Soft, Nontender and Nondistended
Musculoskeletal: No Clubbing, No Cyanosis and No Edema
Neuro: Awake and Alert
[2024-06-30] MEDS: DIOVAN PO (20:02)
[2024-06-30] MEDS: ZOLOFT 25 MG PO (21:37)
[2024-07-01 03:29] VITALS: BP 125/61
[2024-07-01] MEDS: ZOFRAN ODT (ORALLY DISINTEGRATING) 2 MG PO (04:04)
--- NOTE | 2024-07-01 04:51 | PTCARENOTE ---
Pt c/o having x2 episodes of diarrhea and stating that dinner he had last night did not sit well with him and c/o of feeling nauseous. Pt given katerine and DETENTION WORKER notified for an order of Zofran to assist with nausea. Pt had a x1 episode of vomiting
which appeared like meatloaf and gastric fluid, pt also stated he had a blueberry muffin which was also noted in emesis. No signs of bile of blood noted in the emesis. Pt given stat dose of Zofran and when back to bed. After approximately 30 minutes
later had another episode of emesis with small amount of emesis. Pt re-educated on Aspiration precautions and repositioned in bed. Pt currently resting sitting up in bed, no further c/o n/v/d.
[2024-07-01 06:00] VITALS: BMI 32.5
[2024-07-01 07:00] VITALS: BP 119/55
[2024-07-01] MEDS: DELTASONE 5 MG PO (08:30)
[2024-07-01] MEDS: ELIQUIS 5 MG PO (08:30)
[2024-07-01] MEDS: FLOMAX 0.4 MG PO (08:30)
[2024-07-01] MEDS: DIOVAN 160 MG PO (08:31)
[2024-07-01] MEDS: FEOSOL 325 MG PO (08:31)
[2024-07-01] MEDS: LOW STRENGTH ASPIRIN 81 MG PO (08:31)
[2024-07-01] MEDS: PACERONE 200 MG PO (08:31)
--- NOTE | 2024-07-01 09:34 | W.PN.CARDCBS ---
Addendum entered and electronically signed by Shashi Chambers MD 07/01/24 10:06:
83-year-old man admitted from our office 2 days ago paresthesias of the right upper extremity. History of what is believed to have been persistent atrial fibrillation, intermittently amiodarone, with a stroke in April 2024. MRI subsequent to
admission showed small bilateral strokes with cerebellar strokes, presumably cardioembolic. Surprisingly, patient converted to sinus bradycardia. Hospital, metoprolol stopped, still on amiodarone. Diarrhea this morning.
PMH: Prostate cancer with bony mets, depression, hypertension, hypercholesterolemia
Current meds: Amiodarone 200 mg a day, apixaban 5 mg twice daily, aspirin 81 mg daily, iron, prednisone 5 mg a day, sertraline 25 mg a day tamsulosin 0.4 twice daily and valsartan 160 mg twice daily
119/55, pulse 63, no distress, lungs are clear, extrasystoles on cardiac exam, very soft systolic murmur abdomen obese extremities without much edema
Weight is 99.875 kg, if accurate down 1 kg
Telemetry: Sinus rhythm/sinus bradycardia, PACs,
No labs today
Echo 06/30/2024: Mild LVH, EF 55 mmHg, peak aortic valve gradient 21 mmHg, normal RV, normal atria, pulmonary artery systolic pressure of 40-45, MAC with mild MR, trace AI, peak aortic valve gradient had been 40
Impression: See below for complete list
Paresthesias right upper extremity, not cardiac in etiology, suspect peripheral or central neurologic issue possibly related to prior CVAs, cannot exclude musculoskeletal/bony causes
Persistent atrial fibrillation with resumption of sinus rhythm on amiodarone
Plan:
Appears stable from a cardiac standpoint.
Okay for discharge from cardiac standpoint
Recommended cardiac medications at discharge:
Apixaban 5 mg a day
Amiodarone 200 mg a day
Valsartan 160 mg twice daily
Stop aspirin
Stop metoprolol
We will arrange for outpatient monitor
Patient has follow-up appointment in our office
Original Note:
Today's Communication / Plan
-
Discharge off Toprol
Continue amiodarone 200 mg daily and Eliquis
Start atorvastatin 20 mg
Will arrange for outpatient percussion instructor within next several days
Outpatient cardiology follow-up has been arranged
Impression / Plan
-
Please refer to office note dated 06/29/24
Primary Perfusionist: Dr. Bey
Assessment:
Presentation 06/29/2024 with RUE numbness/tingling
DASH
Dizziness
Persistent atrial fibrillation
Chronic anticoagulation with Eliquis
CVA 04/2024
ER visit 04/17/2024 for atrial fibrillation, lightheadedness status post successful cardioversion
History of bihemispheric strokes
Hypertension
Hypercholesterolemia
History of bladder cancer status post surgical removal
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
Depression
Recent thyroid biopsies 04/26/24
PET/CT stress test 06/06/2024: Normal perfusion imaging with no scar or ischemia.
Lexiscan nuclear stress test 07/20/22: Predominantly fixed defect in basal inferolateral, mid inferior lateral and apex segments consistent with infarction with residual ischemia versus STA, EF 52%
Echo 02/01/2023: EF 55 to 60%, trace MR, mild with peak/mean gradients 19/10 mmHg, mild TR, PAP 30 to 35 mmHg
ECHO 05/10/24: EF 55%, mild concentric LVH, mild MR, moderate with peak/mean gradients 40/22 mmHg, RILEY 1.3 cm�, mild TR, PAP 30 to 35 mmHg
Echo 06/30/2024: EF 55%. Mild concentric LVH. Mild MR, mild TR with PAP 40 to 45 mmHg. Mild to moderate with peak/mean gradient 21/12 mmHg with RILEY 0.2 cm�
Plan:
-Presented 06/29/2024 with right upper extremity numbness/tingling and dizziness. Head CT without acute abnormalities noted.
-MRI brain completed 06/30/2024 shows no acute infarct. There are multiple small chronic ischemic infarcts in both anterior and posterior intracranial circulations which are likely the result of chronic embolic disease (right frontal lobe, left
thalamus, cheryl, and right cerebellar hemisphere.
-Would continue anticoagulation with Eliquis.
-Does not appear that right upper extremity numbness weakness are cardiac related. Suspect neuropathic. Could consider cervical spinal issues as a cause. Defer to neurology and primary service
-Presented in rate controlled afib. Spontaneous converted to sinus rhythm with frequent PACs and occasional PVCs with some bigeminy.
-Toprol discontinued 06/30/2024 as heart rates were bradycardic at times. Continue amiodarone and Eliquis.
-Discussed with patient and his DIL/son he would probably benefit from EP evaluation and ablation. This will arranged as outpatient and cardiology office will call him with visit.
-Given ongoing dizziness and lightheadedness also discussed he would benefit from wearing an outpatient monitor to see if we could correlate his dizziness with an arrhythmia. Possibly having conversion pauses or rapid A-fib. Patient agreeable to
wear a monitor. This will be arranged with cardiology as outpatient for monitor to be placed within the next several days.
-Also discussed ongoing dizziness may be secondary to Flomax and drop in blood pressure. Although patient had negative orthostatic vitals during this visit. If dizziness continues would consider discontinuing a.m. dose of Flomax and keep evening
dose.
-Repeat follow-up echo 06/30/2024 with EF of 55% with mild to moderate MS, mild TR. Aortic gradients improved on this echo compared to prior and April 2024
-Troponin negative x 3. OP PET/CT stress testing May 2024 without evidence of myocardial ischemia or scar. No further workup warranted.
-Appreciate PT/OT and speech evaluation. Passed swallowing eval. PT OT recommending outpatient/home physical therapy to improve balance and strength.
-Lipids TC 186, HDL 33, LDL 107, triglycerides 232. Given history of strokes and LDL greater than 70 start atorvastatin 20 mg daily
-Patient did have an episode of nausea with vomiting and diarrhea in early hours of 07/01/2024. Symptoms improved with Zofran. Electrolytes and renal function stable. Defer to primary care
Updated [id number] Felisa with cardiology plan
HPI 06/29/2024:
Patient is an 83-year-old male with a history of prostate cancer with mets to bone with ongoing hormone and chemotherapy, oncologist Dr. Ferreira, history of stroke, ER visit for A-fib 04/17/2024 resulting in successful cardioversion with subsequent
recurrence. He had admission for chest pain with peak trop 0.034 and echo with preserved EF and mild MR/mod then had stroke alert with left thalamic CVA by brain MRI so ischemic evaluation was deferred. Pain was felt to possibly be due to bony
mets. He was supposed to be seen in cardiology office 05/15/24 however appt was cancelled. He then called office 06/12/24 reporting afib and dizziness and was referred to ER. It was noted he had not been taking his amiodarone so 200mg daily was
restarted and he was discharged from ER with cardiac follow up scheduled 06/29/24. He was seen in office today and reports since discharge post CVA having episodes of R arm numbness/tingling with associated dizziness and dyspnea. Daughter at bedside
reports during episodes he is 'white as a ghost.' No CP. He had episode while in waiting room of office and was referred to ER. He has not yet seen neurology in follow up post admission 04/2024 for CVA. He is in rate controlled afib both in office
today and in ER. He denies noting correlation of episodes with exertion, movement, eating, medications, etc.
Progress Note - Perfusionist
Subjective
Date of Service: July 01, 2024
Patient seen and examined. Reports an episode of nausea with vomiting and diarrhea early this am. Nausea improved with Zofran. Feesl better now. Denies any chest pain, shortness of breath or dizziness currently. He has not had any recent episodes
of right arm numbness. He is eager to go home.
Objective
Labs:
06/29/24 11:37
06/30/24 06:41
Labs
Hgb 13.4 g/dL (13.0-18.0) 06/29/24 11:37
Hct 40.1 % (39.0-52.0) 06/29/24 11:37
Plt Count 187 10^3/uL (130-400) 06/29/24 11:37
Sodium 139 mmol/L (135-145) 06/30/24 06:41
Potassium 4.1 mmol/L (3.5-5.1) 06/30/24 06:41
BUN 30 mg/dl (9-20) H 06/30/24 06:41
Creatinine 1.0 mg/dL (0.7-1.3) 06/30/24 06:41
Glucose 112 mg/dl (70-99) H 06/30/24 06:41
Troponins
06/29/24 06/30/24 06/30/24
11:37 00:58 06:00
Troponin I 0.014 0.015 Cancelled
06/30/24
06:41
Troponin I 0.018
Vital Signs and I&O:
Vital Signs
Temp Pulse Resp BP Pulse Ox
98.5 F 63 18 119/55 98
07/01/24 07:00 07/01/24 07:00 07/01/24 07:00 07/01/24 07:00 07/01/24 07:00
Vital Signs
Temp Pulse Resp BP Pulse Ox
98.5 F 63 18 119/55 98
07/01/24 07:00 07/01/24 07:00 07/01/24 07:00 07/01/24 07:00 07/01/24 07:00
Intake & Output
06/29/24 06/30/24 07/01/24 07/02/24
06:59 06:59 06:59 06:59
Intake Total 2160 / 2160
Output Total 850 / 850
Balance 1310 / 1310
Physical Exam
Physical Exam
GEN: No distress, awake, Ox3, lying in bed
HEENT: supple, anicteric, mmm
LUNGS: CTA, no wheezes/rales
CV: Reg, S1/S2, 1/6 syst murmur
ABD: soft, BS+, NT/ND
EXT: No edema, clubbing or cyanosis
NEURO: Gross non-focal
SKIN: No rash warm, dry, pink
[2024-07-01] MEDS: LIPITOR 20 MG PO (10:06)
[2024-07-01 11:33] VITALS: BP 119/51
--- NOTE | 2024-07-01 15:25 | W.PN.HOSP.TC ---
Today's Communication/Plan
-
dc to home
Assessment / Plan
Assessment / Plan
# Right hand tingling/heaviness, lightheadedness rule out acute CVA/ atrial fib
-CT head negative for acute finding
-EKG with A-fib
- MRI:1. No MRI evidence for acute infarct.
2. MULTIPLE SMALL CHRONIC ISCHEMIC INFARCTS in both the anterior and posterior intracranial circulations which are likely the result of chronic embolic disease (right frontal lobe, left thalamus, cheryl, and right cerebellar hemisphere).
3. Moderate diffuse cerebral and cerebellar volume loss.
4. Moderate white matter leukoaraiosis in the frontal and parietal lobes.
5. Tiny chronic intraparenchymal microhemorrhage in the left cerebellum.
-obtain a1c 6.4%
-statin continued
-asa continued
# Short of breath on admission, now resolved
-Chest x-ray pending
-oxygenating very well on RA
-No acute disease of the chest.Findings consistent with mild osseous metastatic disease. Known. Grossly stable
# Rt hand paresthesia with sparing of pinky, consistent with Carpal Tunnel Syndrome
#atrial fib
-HR controlled
-cardiology consulted
-amiodarone continued
-eliquis continued
-metoprolol continued
on monitor appears pt is in NSR with PAC's
#BPH
-flomax
#essential HTN
-valsartan continued
# Hypokalemia
-K3.3-->4.1
-kcl in ER
#Metastatic Bladder/Prostate Cancer with Bony Mets
-Continue prednisone
-Patient maintained on abiraterone as outpatient
#Depression
-Continue sertraline
#DVT proph: Eliquis
#Code Status: Full Code
reviewed with cardio
dc to home
see dictated note
More than 30 minutes spent in discharge including
Final examination of the patient
Summarizing hospital stay
Instructions for continuing care to all relevant caregivers
Preparation of discharge records, prescriptions, and referral forms
Total time spent (in minutes): 45
Anticipated Discharge: Today
Subjective/Interval History
-
Date of Service: July 01, 2024
Feels well and wants to go home
Objective Data
-
Vital Signs:
Vital Signs
Temp Pulse Resp BP Pulse Ox
97.9 F 65 20 119/51 98
07/01/24 11:33 07/01/24 11:33 07/01/24 11:33 07/01/24 11:33 07/01/24 11:33
I&O
06/30/24 07/01/24 07/02/24
06:59 06:59 06:59
Intake Total 2160 / 2160
Output Total 850 / 850
Balance 1310 / 1310
Review of Systems
-
History Source: Patient and Family (michael Roberto-meme in room)
Constitutional: Denies Fever
Respiratory: Reports No Symptoms
Cardiac: Reports No Symptoms; Denies Chest Pain
Genitourinary: Reports No Symptoms
Physical Exam
-
General: Well Developed, Well Nourished and No Apparent Distress
HEENT: Normocephalic, Atraumatic and Moist Mucous Membranes
Respiratory: Clear to Auscultation; Negative Wheezes, Rales or Rhonchi
Cardiac: Regular Rhythm and S1/S2
GI: Soft, Nontender and Nondistended
Musculoskeletal: No Clubbing, No Cyanosis and No Edema
Neuro: Awake and Alert
--- NOTE | 2024-07-01 15:40 | CM ---
Home no needs.
Plan; Home no needs.
[2024-07-01 15:46] VITALS: BP 103/58
[2024-07-01 15:54] VITALS: BP 120/78
--- NOTE | 2024-07-02 16:49 | W.DS.TRANS ---
DC Summary - [facility]
-
Discharge Instructions:
Discharge Diagnosis/Procedures Dizziness
Diet Regular
Activity No strenuous activity
Driving Restrictions Not until seen by your Dr
Bathing Restrictions None
Others Tests Patient will receive a call from outpatient
cardiology office regarding placement of 7-day
outpatient mail examiner
Instructions:
Stand-Alone Forms:
Changes to Home Medications: Yes
Discharge Medications:
DC Medications w/original date entered in [facility]
tamsulosin 0.4 mg capsule (Flomax) 0.4 mg PO BID Urinary issue 03/29/14
abiraterone 500 mg tablet 1,000 mg PO DAILY Cancer 01/31/23
prednisone 5 mg tablet 5 mg PO DAILY Anti-Inflammatory 01/31/23
sertraline 50 mg tablet 25 mg PO HS Depression 01/31/23
calcium 600 mg (as carbonate)-vitamin D3 10 mcg (400 unit) tablet (Calcium 600 + D(3)) 1 tab PO HS Supplement 05/09/24
valsartan 160 mg tablet 160 mg PO BID Blood Pressure 05/09/24
amiodarone 200 mg tablet 200 mg PO DAILY Heart Disease/Condition 06/29/24
apixaban 5 mg tablet (Eliquis) 5 mg PO BID Blood Clot Prevention/Tx 06/29/24
ferrous sulfate 325 mg (65 mg iron) tablet 325 mg PO DAILY Supplement 06/29/24
nitroglycerin 0.3 mg sublingual tablet 0.3 mg sublingual [id number] PRN chest pain 06/29/24
atorvastatin 20 mg tablet 20 mg PO QPM #0 tabs 07/01/24
Home Medication Changes
resume Lipitor 20 mg daily
stop Metoprolol and Aspirin
Pending Results: No
== END 2024-07-01 16:33 | disposition home or self-care (01) | DRG 309 ==
LOC: 4 WEST ACU 14:07
PROVIDERS: Physician Assistant; Registered Nurse; ADMITTING PHYSICIAN Hospitalist; ATTENDING PHYSICIAN Internal Medicine; CONSULT PHYSICIAN Psychiatry & Neurology Neurology; EMERGENCY PHYSICIAN Emergency Medicine; FAMILY PHYSICIAN Family Medicine
DX: I48.19 Other persistent atrial fibrillation (principal); C79.51 Secondary malignant neoplasm of bone; I10 Essential (primary) hypertension; G56.01 Carpal tunnel syndrome, right upper limb; N40.0 Benign prostatic hyperplasia without lower urinary tract symptoms; E87.6 Hypokalemia; F32.9 Major depressive disorder, single episode, unspecified; Z79.01 Long term (current) use of anticoagulants; Z86.73 Personal history of transient ischemic attack (TIA), and cerebral infarction without residual deficits; Z85.51 Personal history of malignant neoplasm of bladder; Z85.46 Personal history of malignant neoplasm of prostate
CPT/HCPCS: 93308; 70450; 70551; 71046; 80048; 80053; 80061; 83036; 83735; 83880; 84443; 84484; 85025; 92523; 92610; 93005; 93321; 93325; 97162; 97166; 99285

== ENCOUNTER 2024-08-17 08:57 | Day surgery (SDC) | payer OTHER, SELFPAY ==
--- NOTE | 2024-08-17 11:13 | ITS.CL.CARDI ---
Speech And Language Specialist - Cardioversion
Cardioversion
Procedure Report:
Date of Procedure: Aug 17 2024
Procedure: Cardioversion
Indication: Symptomatic atrial fibrillation
Performing Physician: Aaron Ramirez DO, FACC
Technique: The patient was brought to the holding area. Signed informed consent was obtained. A time out was called and performed. The patient was anesthetized by the anesthesia service. Anticoagulation status was reviewed and appropriate. R2 pads
were placed anteriorly and posteriorly. A 250 J synchronized biphasic shock restored normal sinus rhythm without significant bradycardia. There were no complications.
Conclusion: Uncomplicated cardioversion from atrial fibrillation to sinus rhythm.
Recommendation: Routine post cardioversion care. Continue terminal gauger supervisor anticoagulation.
== END 2024-08-17 11:54 | disposition home or self-care (01) ==
LOC: CATH 08:57
PROVIDERS: ATTENDING PHYSICIAN Nuclear Medicine Nuclear Cardiology; FAMILY PHYSICIAN Family Medicine; OTHER PHYSICIAN Internal Medicine Cardiovascular Disease
DX: I48.91 Unspecified atrial fibrillation (principal); Z79.01 Long term (current) use of anticoagulants; Z79.899 Other long term (current) drug therapy
CPT/HCPCS: 92960; 93005

== ENCOUNTER → 2024-08-19 06:53 | Outpatient (REF) | payer OTHER, SELFPAY | LOC: PAVMRI 06:53 | PROVIDERS: ATTENDING PHYSICIAN Orthopaedic Surgery; FAMILY PHYSICIAN Family Medicine | DX: M54.2 Cervicalgia (principal) | CPT/HCPCS: 72141 ==

== ENCOUNTER → 2024-09-01 13:35 | Outpatient (REF) | payer OTHER, SELFPAY | LOC: HWRAD 13:35 | PROVIDERS: ATTENDING PHYSICIAN Internal Medicine Cardiovascular Disease; FAMILY PHYSICIAN Family Medicine | DX: I48.0 Paroxysmal atrial fibrillation (principal); I10 Essential (primary) hypertension; R06.02 Shortness of breath | CPT/HCPCS: 71046 ==

== ENCOUNTER → 2024-09-18 15:29 | Outpatient (REF) | payer OTHER, SELFPAY | LOC: DHSLP 15:29 | PROVIDERS: ATTENDING PHYSICIAN Internal Medicine Cardiovascular Disease; FAMILY PHYSICIAN Family Medicine | DX: G47.33 Obstructive sleep apnea (adult) (pediatric) (principal) | CPT/HCPCS: 95800 ==

== ENCOUNTER → 2024-09-29 10:38 | Outpatient (REF) | payer OTHER, SELFPAY | LOC: HWCARD 10:38 | PROVIDERS: ATTENDING PHYSICIAN Internal Medicine Cardiovascular Disease; FAMILY PHYSICIAN Family Medicine | DX: I48.0 Paroxysmal atrial fibrillation (principal) | CPT/HCPCS: 93005 ==

== ENCOUNTER 2024-11-09 09:37 | Outpatient (RCR) | payer OTHER, SELFPAY | END 2024-11-09 23:59 | disposition home or self-care (01) | LOC: RPT 09:37 | PROVIDERS: ATTENDING PHYSICIAN Internal Medicine Hematology & Oncology; FAMILY PHYSICIAN Family Medicine | DX: M54.12 Radiculopathy, cervical region (principal); R42 Dizziness and giddiness; C61 Malignant neoplasm of prostate; C79.51 Secondary malignant neoplasm of bone; Z73.6 Limitation of activities due to disability; M62.81 Muscle weakness (generalized); R26.2 Difficulty in walking, not elsewhere classified; M54.2 Cervicalgia; M25.511 Pain in right shoulder; M79.601 Pain in right arm; R53.83 Other fatigue | CPT/HCPCS: 97010; 97110; 97112; 97140; 97162; 97164; 97530 ==

== ENCOUNTER 2024-12-08 13:43 | Outpatient (RCR) | payer OTHER, SELFPAY | END 2024-12-08 23:59 | disposition home or self-care (01) | LOC: RPT 13:43 | PROVIDERS: ATTENDING PHYSICIAN Internal Medicine Hematology & Oncology; FAMILY PHYSICIAN Family Medicine | DX: M54.12 Radiculopathy, cervical region (principal); R42 Dizziness and giddiness; C61 Malignant neoplasm of prostate; C79.51 Secondary malignant neoplasm of bone; Z73.6 Limitation of activities due to disability; M62.81 Muscle weakness (generalized); R26.2 Difficulty in walking, not elsewhere classified; M54.2 Cervicalgia; M25.511 Pain in right shoulder; M79.601 Pain in right arm; R53.83 Other fatigue | CPT/HCPCS: 97110; 97112; 97116; 97530 ==

== ENCOUNTER 2025-01-10 11:46 | Outpatient (RCR) | payer OTHER, SELFPAY | END 2025-01-10 23:59 | disposition home or self-care (01) | LOC: RPT 11:46 | PROVIDERS: ATTENDING PHYSICIAN Internal Medicine Hematology & Oncology; FAMILY PHYSICIAN Family Medicine | DX: M54.12 Radiculopathy, cervical region (principal); R42 Dizziness and giddiness; C61 Malignant neoplasm of prostate; C79.51 Secondary malignant neoplasm of bone; Z73.6 Limitation of activities due to disability; M62.81 Muscle weakness (generalized); R26.2 Difficulty in walking, not elsewhere classified; M54.2 Cervicalgia; M25.511 Pain in right shoulder; M79.601 Pain in right arm; R53.83 Other fatigue | CPT/HCPCS: 97110; 97112; 97530 ==

== ENCOUNTER 2025-02-16 13:46 | Outpatient (RCR) | payer OTHER, SELFPAY | END 2025-02-16 23:59 | disposition home or self-care (01) | LOC: RPT 13:46 | PROVIDERS: ATTENDING PHYSICIAN Internal Medicine Hematology & Oncology; FAMILY PHYSICIAN Family Medicine | DX: M54.12 Radiculopathy, cervical region (principal); R42 Dizziness and giddiness; C61 Malignant neoplasm of prostate; C79.51 Secondary malignant neoplasm of bone; Z73.6 Limitation of activities due to disability; M62.81 Muscle weakness (generalized); R26.2 Difficulty in walking, not elsewhere classified; M54.2 Cervicalgia; M25.511 Pain in right shoulder; M79.601 Pain in right arm; R53.83 Other fatigue | CPT/HCPCS: 97110; 97112; 97140; 97530 ==